=== PATIENT | male | born 1945 | race African-American/Black ===

== ENCOUNTER 2017-11-09 08:27 | Emergency (ER) | payer OTHER ==
[2017-11-09 08:33] VITALS: BMI 22.4
--- NOTE | 2017-11-09 08:47 | PDOC ---
History of Present Illness - General Chief Complaint: Urinary Problem Stated Complaint: URINARY RETENTION Time Seen by Provider: 11/09/17 08:40 History Source: Patient Exam Limitations: No Limitations - History of Present Illness Initial Comments: 11/09/17 10:22 Patient is a 71-year-old male past medical history of BPH, high blood pressure, who presents to the emergency department today complaining of urinary retention. Patient states that as of midnight he has been unable to urinate. He states that small dribbles come out however he has not had a full urination since yesterday. Patient admits to dysuria, frequency, hesitancy. He also states he has some lower abdominal pain. Denies fevers, chills, nausea, vomiting , diarrhea, back pain, hematuria straining, blood in the stool, stool changes. Past History - Travel Traveled outside of the country in the last 30 days: No Close contact w/someone who was outside of country & ill: No - Past Medical History Allergies/Adverse Reactions: Allergies Allergy/AdvReac Type Severity Reaction Status Date / Time No Known Allergies Allergy Verified 11/09/17 08:33 Home Medications: Ambulatory Orders Unobtainable [Unobtainable] 11/09/17 COPD: No HTN: Yes Other medical history: enlarged prostate, glaucoma - Suicide/Smoking/Psychosocial Hx Smoking History: Never smoked Information on smoking cessation initiated: No Hx Alcohol Use: No Drug/Substance Use Hx: No Substance Use Type: None Review of Systems - Review of Systems Able to Perform ROS?: Yes Comments:: 11/09/17 10:24 CONSTITUTIONAL: Absent: fever, chills, diaphoresis, generalized weakness, malaise, loss of appetite CARDIOVASCULAR: Absent: chest pain, loss of consciousness, palpitations, irregular heart rate, peripheral edema RESPIRATORY: Absent: cough, shortness of breath, dyspnea with exertion, orthopnea, wheezing, stridor, hemoptysis GASTROINTESTINAL: Present: abdominal pain Absent: abdominal distension, nausea, vomiting, diarrhea , constipation, melena, hematochezia GENITOURINARY: Present: dysuria, frequency, hesitancy Absent: urgency, hematuria, flank pain, genital pain MUSCULOSKELETAL: Absent: myalgia, arthralgia, joint swelling SKIN: Absent: rash, itching, pallor HEMATOLOGIC/IMMUNOLOGIC: Absent: easy bleeding, easy bruising, lymphadenopathy, frequent infections ENDOCRINE: Absent: unexplained weight gain, unexplained weight loss, heat intolerance, cold intolerance NEUROLOGIC: Absent: headache, focal weakness or paresthesias, dizziness, unsteady gait, seizure, mental status changes, bladder or bowel incontinence PSYCHIATRIC: Absent: anxiety, depression, suicidal or homicidal ideation, hallucinations. Is the patient limited Faroese proficient: No *Physical Exam - Vital Signs Last Vital Signs Temp Pulse Resp BP Pulse Ox 97.7 F 90 18 143/85 98 11/09/17 08:29 11/09/17 08:29 11/09/17 08:29 11/09/17 08:29 11/09/17 08:29 - Physical Exam Comments: 11/09/17 10:25 GENERAL: Well developed, well nourished. Awake and alert. No acute distress. HEENT: Normocephalic, atraumatic. PERRLA, EOMI. No conjunctival pallor. Sclera are non- icteric. Moist mucous membranes. Oropharynx is clear. NECK: Supple. Full ROM. No JVD. Carotid pulses 2+ and symmetric, without bruits. No thyromegaly. No lymphadenopathy. CARDIOVASCULAR: Regular rate and rhythm. No murmurs, rubs, or gallops. Distal pulses are 2+ and symmetric. PULMONARY: No evidence of respiratory distress. Lungs clear to auscultation bilaterally. No wheezing, rales or rhonchi. ABDOMINAL: TTP of the LLQ, suprapubic area, RLQ. Worse over the LLQ. Soft. Non-distended. No rebound or guarding. No organomegaly. Normoactive bowel sounds. MUSCULOSKELETAL Normal range of motion at all joints. No bony deformities or tenderness. No CVA tenderness. EXTREMITIES: No cyanosis. No clubbing. No edema. No calf tenderness. SKIN: Warm and dry. Normal capillary refill. No rashes. No jaundice. NEUROLOGICAL: Alert, awake, appropriate. Cranial nerves 2-12 intact. No deficits to light touch and temperature in face, upper extremities and lower extremities. No motor deficits in the in face, upper extremities and lower extremities. Normoreflexic in the upper and lower extremities. Normal speech. Toes are down- going bilaterally. Gait is normal without ataxia. PSYCHIATRIC: Cooperative. Good eye contact. Appropriate mood and affect. ED Treatment Course - LABORATORY CBC & Chemistry Diagram: 11/09/17 10:00 11/09/17 10:00 Medical Decision Making - Medical Decision Making 11/09/17 10:26 Patient is a 71-year-old male who presents emergency Department with 10 hours of urinary retention. No CVA tenderness at this time patient is afebrile and vital signs are stable. Concern for possible UTI. Patient states he cannot use the bathroom. We will obtain a urine specimen via Oliveira catheter. We'll also draw basic labs given the abdominal tenderness. Reevaluate. 11/09/17 11:40 Urine is negative for infection at this time. Blood work is unremarkable. Pt had output of 700 after oliveira catheter placed. Will leave catheter in place for d/c. Pt. to f/u with Dr. Sepulveda. Called Dr. Root to make aware of pt. Will d/c after call back from urology. 11/09/17 12:22 Pt. is agreeable to plan. spoke with Dr. Frazier's office and made an appointment for Tuesday. Still waiting for call back. 11/09/17 13:[address] call from Dr. Sepulveda's office. Will d/c home at this time as plan is to follow up with Derick's office on Tuesday. Pt. was taught how to empty urine from oliveira. Pt. and comfortable with discharge planning. Pt. understands all discharge instructions and all questions were answered at this time. *DC/Admit/Observation/Transfer Diagnosis at time of Disposition: Urinary retention - Discharge Dispostion Disposition: HOME Condition at time of disposition: Good Admit: No - Referrals Referrals: Bill Correa MD [Staff Physician] - - Patient Instructions Printed Discharge Instructions: DI for Urinary Retention in Men Additional Instructions: You had a Oliveira catheter placed today for urinary retention. Please leave the catheter in until you follow-up with urology. Please keep your appointment for Tuesday. Return to the emergency department if you have worsening fevers, abdominal pain , nausea, vomiting, urinary retention despite Oliveira, or any changes in your symptoms. - Post Discharge Activity
[2017-11-09 10:19] LABS: BASO % 0.4 % (0-2.0); EOS % 0.2 % (0-4.5); HEMATOCRIT 47.1 % (35.4-49); HEMOGLOBIN 15.7 GM/dL (11.7-16.9); LYMPH % 14.2 % (8-40); MCH 30.8 pg (25.7-33.7); MCHC 33.3 g/dl (32.0-35.9); MEAN CELL VOLUME 92.5 fl (80-96); MEAN PLT VOLUME 9.7 fl (7.5-11.1); MONO % 8.1 % (3.8-10.2); NEUT % 77.1 % (42.8-82.8); PLATELET COUNT 149 K/MM3 (134-434); RBC 5.09 M/mm3 (4.00-5.60); RDW 13.4 % (11.9-15.9); WHITE BLOOD COUNT 7.2 K/mm3 (4.0-10.0)
[2017-11-09 10:33] LABS: ALBUMIN 4.5 g/dl (3.4-5.0); ANION GAP 11 (8-16); BILIRUBIN,TOTAL 1.3 mg/dL (0.2-1.0); BLOOD UREA NITROGEN 20 mg/dL (7-18); CALCIUM 9.4 mg/dL (8.5-10.1); CHLORIDE 95 mmol/L (98-107); CO2 28 mmol/L (21-32); CREATININE 1.6 mg/dL (0.7-1.3); GLUCOSE,RANDOM 131 mg/dL (74-106); INR 1.02 (0.82-1.09); PROTHROMBIN TIME (PATIENT) 11.5 SEC (9.98-11.88); SGOT/AST 27 U/L (15-37); SGPT/ALT 38 U/L (12-78); SODIUM 134 mmol/L (136-145); TOT PROT 8.7 g/dl (6.4-8.2)
[2017-11-09 10:34] LABS: ALK PHOS 108 U/L (45-117)
[2017-11-09 11:07] LABS: URINE APPEARANCE CLEAR; URINE BILIRUBIN NEGATIVE (NEGATIVE); URINE BLOOD 1+ (NEGATIVE); URINE COLOR LTYELLOW; URINE GLUCOSE (UA) NEGATIVE (NEGATIVE); URINE KETONE TRACE (NEGATIVE); URINE LEUK ESTERASE NEGATIVE (NEGATIVE); URINE NITRITE NEGATIVE (NEGATIVE); URINE PROTEIN NEGATIVE (NEGATIVE); URINE UROBILINOGEN NEGATIVE mg/dL (0.2-1.0)
[2017-11-09 11:13] LABS: URINE MUCUS RARE
[2017-11-09 13:16] VITALS: BP 138/78; PULSE 78; TEMP 98
== END 2017-11-09 13:09 | disposition home or self-care (01) ==
LOC: JER 08:27
PROC: 0T9B70Z Drainage of Bladder with Drainage Device, Via Natural or Artificial Opening (ICD-10-PCS; principal; 2017-11-09)
DX: R33.9 Retention of urine, unspecified (principal); I10 Essential (primary) hypertension
CPT/HCPCS: 36415; 51702; 80053; 81003; 81015; 85025; 85610; 87086; 99282-25

== ENCOUNTER 2017-11-15 23:37 | Emergency (ER) | payer OTHER ==
[2017-11-16 00:21] VITALS: BP 141/96; PULSE 80; TEMP 98; BMI 22.4
--- NOTE | 2017-11-16 00:52 | PDOC ---
History of Present Illness - General History Source: Patient Exam Limitations: No Limitations - History of Present Illness Initial Comments: 11/16/17 01:03 The patient is a 71 year old male, with a significant past medical history of BPH, hypertension, who presents to the emergency department with urinary retention after removal of his catheter today. The patient states he was seen here a week ago for inability to urinate, had a catheter placed, and reports having the catheter removed at 11AM on 11/15 by his urologist, however, states he has been unable to urinate since 5PM on the same day. The patient denies chest pain, shortness of breath, headache and dizziness. The patient denies fever, chills, nausea, vomit, diarrhea and constipation. Allergies: NKDA Urologist: Dr. Correa <Tiffanie Villavicencio - Last Filed: 11/16/17 01:03> <Bhumi Khan - Last Filed: 11/16/17 01:23> - General Chief Complaint: Urinary Problem Stated Complaint: TROUBLE URINATING Time Seen by Provider: 11/16/17 00:30 Past History <Tiffanie Villavicencoi - Last Filed: 11/16/17 01:03> - Past Medical History COPD: No GI Disorders: Yes (BPH) HTN: Yes Other medical history: Glaucoma - Suicide/Smoking/Psychosocial Hx Smoking History: Never smoked Have you smoked in the past 12 months: No Information on smoking cessation initiated: No Hx Alcohol Use: No Drug/Substance Use Hx: No Substance Use Type: None <Bhumi Khan - Last Filed: 11/16/17 01:23> - Past Medical History Allergies/Adverse Reactions: Allergies Allergy/AdvReac Type Severity Reaction Status Date / Time No Known Allergies Allergy Verified 11/16/17 00:18 Home Medications: Ambulatory Orders Amlodipine/Valsartan [Exforge 10-320 mg Tablet] 1 tab PO DAILY 11/16/17 Bimatoprost [Lumigan] 1 drop IO DAILY 11/16/17 Brimonidine Tartrate/Timolol [Combigan Eye Drops] 5 ml OP DAILY 11/16/17 Finasteride 5 mg PO DAILY 11/16/17 Tamsulosin HCl [Flomax] 0.4 mg PO DAILY 11/16/17 Review of Systems - Review of Systems Able to Perform ROS?: Yes Comments:: 11/16/17 01:04 CONSTITUTIONAL: Absent: fever, chills, diaphoresis, generalized weakness, malaise, loss of appetite HEENT: Absent: rhinorrhea, nasal congestion, throat pain, throat swelling, difficulty swallowing, mouth swelling, ear pain, eye pain, visual Changes CARDIOVASCULAR: Absent: chest pain, syncope, palpitations, irregular heart rate, lightheadedness , peripheral edema RESPIRATORY: Absent: cough, shortness of breath, dyspnea with exertion, orthopnea, wheezing, stridor, hemoptysis GASTROINTESTINAL: Absent: abdominal pain, abdominal distension, nausea, vomiting, diarrhea, constipation, melena, hematochezia GENITOURINARY: (+) urinary retention s/p catheter removal. Absent: dysuria, urgency, hesitancy , hematuria, flank pain, genital pain MUSCULOSKELETAL: Absent: myalgia, arthralgia, joint swelling SKIN: Absent: rash, itching, pallor HEMATOLOGIC/IMMUNOLOGIC: Absent: easy bleeding, easy bruising, lymphadenopathy, frequent infections ENDOCRINE: Absent: unexplained weight gain, unexplained weight loss, heat intolerance, cold intolerance NEUROLOGIC: Absent: headache, focal weakness or paresthesias, dizziness, unsteady gait, seizure, mental status changes, bladder or bowel incontinence PSYCHIATRIC: Absent: anxiety, depression, suicidal or homicidal ideation, hallucinations. <Tiffanie Villavicencio - Last Filed: 11/16/17 01:03> *Physical Exam - Vital Signs Last Vital Signs Temp Pulse Resp BP Pulse Ox 98.0 F 80 20 141/96 100 11/16/17 00:18 11/16/17 00:18 11/16/17 00:18 11/16/17 00:18 11/16/17 00:18 - Physical Exam Comments: 11/16/17 01:05 GENERAL: Well developed, well nourished. Awake and alert. No acute distress. HEENT: Normocephalic, atraumatic. PERRLA, EOMI. No conjunctival pallor. Sclera are non- icteric. Moist mucous membranes. Oropharynx is clear. NECK: Supple. Full ROM. No JVD. Carotid pulses 2+ and symmetric, without bruits. No thyromegaly. No lymphadenopathy. CARDIOVASCULAR: Regular rate and rhythm. No murmurs, rubs, or gallops. Distal pulses are 2+ and symmetric. PULMONARY: No evidence of respiratory distress. Lungs clear to auscultation bilaterally. No wheezing, rales or rhonchi. ABDOMINAL: Soft. Non-tender. Non-distended. No rebound or guarding. No organomegaly. Normoactive bowel sounds. MUSCULOSKELETAL Normal range of motion at all joints. No bony deformities or tenderness. No CVA tenderness. EXTREMITIES: No cyanosis. No clubbing. No edema. No calf tenderness. SKIN: Warm and dry. Normal capillary refill. No rashes. No jaundice. NEUROLOGICAL: Alert, awake, appropriate. Cranial nerves 2-12 intact. Normoreflexic in the upper and lower extremities. Normal speech. Toes are down-going bilaterally. Gait is normal without ataxia. PSYCHIATRIC: Cooperative. Good eye contact. Appropriate mood and affect. <Tiffanie Villavicencio - Last Filed: 11/16/17 01:03> - Vital Signs Last Vital Signs Temp Pulse Resp BP Pulse Ox 98.0 F 80 20 141/96 100 11/16/17 00:18 11/16/17 00:18 11/16/17 00:18 11/16/17 00:18 11/16/17 00:18 <Bhumi Khan - Last Filed: 11/16/17 01:23> *DC/Admit/Observation/Transfer - Attestations Scribe Attestion: 11/16/17 01:05 Documentation prepared by Tiffanie Villavicencio, acting as medical/surgery registered nurse for Bhumi Khan MD <Tiffanie Villavicencio - Last Filed: 11/16/17 01:03> <Bhumi Khan - Last Filed: 11/16/17 01:23> Diagnosis at time of Disposition: Urinary retention - Discharge Dispostion Disposition: HOME Condition at time of disposition: Stable - Referrals Referrals: Karie Whelan MD [Primary Care Provider] - Bill Correa MD [Staff Physician] - - Patient Instructions Printed Discharge Instructions: DI for Urinary Retention in Men Additional Instructions: Please follow up your urologist as soon as possible - Post Discharge Activity
== END 2017-11-16 01:42 | disposition home or self-care (01) ==
LOC: JER 23:37
DX: R33.9 Retention of urine, unspecified (principal); N40.0 Benign prostatic hyperplasia without lower urinary tract symptoms; I10 Essential (primary) hypertension
CPT/HCPCS: 99282-25

== ENCOUNTER 2020-11-30 08:41 | Emergency (ER) | payer OTHER ==
[2020-11-30 08:50] VITALS: TEMP 97; BMI 21.5
[2020-11-30] MEDS ORDERED: SODIUM CHLORIDE 1,000 ML IV STA (10:15)
[2020-11-30 10:39] LABS: BASO % 0.5 % (0-2.0); EOS % 0.8 % (0-4.5); HEMATOCRIT 48.6 % (35.4-49); HEMOGLOBIN 16.3 GM/dL (11.7-16.9); LYMPH % 21.9 % (8-40); MCH 31.3 pg (25.7-33.7); MCHC 33.5 g/dl (32.0-35.9); MEAN CELL VOLUME 93.4 fl (80-96); MEAN PLT VOLUME 9.6 fl (7.5-11.1); MONO % 8.2 % (3.8-10.2); NEUT % 68.6 % (42.8-82.8); PLATELET COUNT 225 K/MM3 (134-434); RBC 5.21 M/mm3 (4.00-5.60); WHITE BLOOD COUNT 7.2 K/mm3 (4.0-10.0)
[2020-11-30 10:42] LABS: EPI CELLS 17 /uL (0-25.1); HYALINE CASTS 4 /uL (0-3.1); URINE APPEARANCE CLEAR; URINE BACTERIA 19 /uL (0-1359); URINE BILIRUBIN NEGATIVE (NEGATIVE); URINE COLOR YELLOW; URINE GLUCOSE (UA) NEGATIVE (NEGATIVE); URINE KETONE NEGATIVE (NEGATIVE); URINE LEUK ESTERASE NEGATIVE (NEGATIVE); URINE NITRITE NEGATIVE (NEGATIVE); URINE PROTEIN NEGATIVE (NEGATIVE); URINE RBC 61 /uL (0-23.9); URINE UROBILINOGEN 0.2 mg/dL (0.2-1.0); URINE WBC 3 /uL (0-25.8)
[2020-11-30 11:10] LABS: ALBUMIN 4.3 g/dl (3.4-5.0); CALCIUM 9.5 mg/dL (8.5-10.1)
[2020-11-30 11:13] LABS: CREATININE 1.3 mg/dL (0.55-1.3)
[2020-11-30 11:15] LABS: TOT PROT 8.1 g/dl (6.4-8.2)
[2020-11-30 12:05] VITALS: BP 143/87; PULSE 83
== END 2020-11-30 11:45 | disposition home or self-care (01) ==
LOC: JER 08:41
PROC: 3E0337Z Introduction of Electrolytic and Water Balance Substance into Peripheral Vein, Percutaneous Approach (ICD-10-PCS; principal; 2020-11-30)
DX: R33.9 Retention of urine, unspecified (principal)
CPT/HCPCS: 36415; 80053; 81003; 85025; 87086; 99284-25

== ENCOUNTER 2021-07-02 21:05 | Emergency (ER) | payer OTHER ==
[2021-07-02 21:37] VITALS: BP 142/87; PULSE 98; TEMP 98.5; BMI 19.9
[2021-07-02] MEDS ORDERED: LIDOCAINE HCL 2% JELLY 10 ML CARTRIDGE ONE (22:05)
[2021-07-02 22:33] LABS: BASO % 0.5 % (0-2.0); EOS % 0.7 % (0-4.5); HEMATOCRIT 41.7 % (35.4-49); LYMPH % 13.7 % (8-40); MCH 30.2 pg (25.7-33.7); MCHC 33.6 g/dl (32.0-35.9); MEAN CELL VOLUME 89.8 fl (80-96); MEAN PLT VOLUME 8.3 fl (7.5-11.1); MONO % 8.7 % (3.8-10.2); NEUT % 76.4 % (42.8-82.8); PLATELET COUNT 240 10^3/uL (134-434); RBC 4.64 M/mm3 (4.00-5.60); RDW 13.5 % (11.9-15.9)
[2021-07-02 22:35] LABS: EPI CELLS 2 /uL (0-25.1); HYALINE CASTS 0 /uL (0-3.1); PH,URINE 6.5 (5.0-8.0); URINE APPEARANCE CLEAR; URINE BACTERIA 20 /uL (0-1359); URINE BILIRUBIN NEGATIVE (NEGATIVE); URINE COLOR YELLOW; URINE GLUCOSE (UA) NEGATIVE (NEGATIVE); URINE KETONE TRACE (NEGATIVE); URINE LEUK ESTERASE NEGATIVE (NEGATIVE); URINE NITRITE NEGATIVE (NEGATIVE); URINE PROTEIN NEGATIVE (NEGATIVE); URINE RBC 38 /uL (0-23.9); URINE UROBILINOGEN 0.2 mg/dL (0.2-1.0); URINE WBC 1 /uL (0-25.8)
[2021-07-02 22:56] LABS: ALBUMIN 3.4 g/dl (3.4-5.0); CALCIUM 8.9 mg/dL (8.5-10.1)
[2021-07-02 22:57] LABS: BLOOD UREA NITROGEN 15.6 mg/dL (7-18)
[2021-07-02 23:00] LABS: CREATININE 1.1 mg/dL (0.55-1.3)
[2021-07-02 23:01] LABS: BILIRUBIN,TOTAL 0.8 mg/dL (0.2-1); TOT PROT 7.5 g/dl (6.4-8.2)
== END 2021-07-02 23:29 | disposition home or self-care (01) ==
LOC: JER 21:05
DX: R33.9 Retention of urine, unspecified (principal)
CPT/HCPCS: 36415; 80053; 81003; 85025; 87086; 99283-25

== ENCOUNTER 2021-07-10 00:32 | Emergency (ER) | payer OTHER ==
[2021-07-10 00:41] VITALS: BP 129/87; PULSE 88; TEMP 98.5; BMI 20.5
[2021-07-10] MEDS ORDERED: CEPHALEXIN MONOHYDRATE 500 MG CAPSULE (UD) PO ONE (00:54)
[2021-07-10] MEDS ORDERED: SULFAMETHOXAZOLE/TRIMETHOPRIM 800MG/160MG D.S. TABLET PO ONE (01:12)
[2021-07-10 01:23] LABS: EPI CELLS 1 /uL (0-25.1); HYALINE CASTS 4 /uL (0-3.1); PH,URINE 6.5 (5.0-8.0); URINE APPEARANCE CLOUDY; URINE BACTERIA 1606 /uL (0-1359); URINE BILIRUBIN NEGATIVE (NEGATIVE); URINE COLOR YELLOW; URINE GLUCOSE (UA) NEGATIVE (NEGATIVE); URINE KETONE NEGATIVE (NEGATIVE); URINE LEUK ESTERASE 3+ (NEGATIVE); URINE NITRITE NEGATIVE (NEGATIVE); URINE PROTEIN NEGATIVE (NEGATIVE); URINE RBC 14 /uL (0-23.9); URINE WBC 351 /uL (0-25.8)
[2021-07-10] MEDS ORDERED: SULFAMETHOXAZOLE/TRIMETHOPRIM 800MG/160MG D.S. TABLET ONE (01:25)
== END 2021-07-10 01:35 | disposition home or self-care (01) ==
LOC: JER 00:32
DX: R33.9 Retention of urine, unspecified (principal)
CPT/HCPCS: 81003; 87086; 87186; 99284-25

== ENCOUNTER 2021-07-22 04:54 | Inpatient (IN) | payer OTHER ==
[2021-07-22] MEDS ORDERED: MIDAZOLAM HCL 2 MG/2 ML SINGLE DOSE VIAL IVPUSH ONE (13:15)
[2021-07-22] MEDS ORDERED: SODIUM CHLORIDE 500 ML IV ONE (13:15)
[2021-07-22] MEDS ORDERED: POLYETHYLENE GLYCOL (HEALTHYLAX) 3350 17 GM PACKET PO PRN (22:46)
[2021-07-22] MEDS ORDERED: ACETAMINOPHEN 1000 MG/100 ML VIAL IVPB ONE (22:51)
[2021-07-22] MEDS: METOCLOPRAMIDE HCL 10 MG TABLET (FP) PO SCH (23:31)
[2021-07-22] MEDS: CYPROHEPTADINE HCL 4 MG TABLET PO SCH (23:47)
[2021-07-22 23:53] VITALS: BMI 19.5
[2021-07-23] MEDS: METOCLOPRAMIDE HCL 10 MG TABLET (FP) PO SCH ×3 (05:48→21:32)
[2021-07-23] MEDS: CYPROHEPTADINE HCL 4 MG TABLET PO SCH ×3 (05:49→21:33)
[2021-07-23 09:34] LABS: BASO % 0.2 % (0-2.0); EOS % 0.4 % (0-4.5); HEMATOCRIT 39.2 % (35.4-49); HEMOGLOBIN 13.2 GM/dL (11.7-16.9); MCH 30.2 pg (25.7-33.7); MCHC 33.6 g/dl (32.0-35.9); MEAN PLT VOLUME 8.7 fl (7.5-11.1); MONO % 9.9 % (3.8-10.2); NEUT % 70.5 % (42.8-82.8); PLATELET COUNT 266 10^3/uL (134-434); RBC 4.36 M/mm3 (4.00-5.60); RDW 13.8 % (11.9-15.9); WHITE BLOOD COUNT 8.4 K/mm3 (4.0-10.0)
[2021-07-23] MEDS ORDERED: PT OWN MED DRAWER 7, Y5N ONE ×3 (09:46→21:18)
[2021-07-23 09:52] LABS: BLOOD UREA NITROGEN 20.3 mg/dL (7-18); CALCIUM 9.3 mg/dL (8.5-10.1)
[2021-07-23] MEDS: BRIMONIDINE TARTRATE 0.2% OPHTHALMIC 5 ML BOTTLE OU SCH ×2 (09:53→21:33)
[2021-07-23] MEDS: VALSARTAN 160 MG TABLET PO SCH (09:54)
[2021-07-23] MEDS: amLODIPine BESYLATE 10 MG TABLET (FP) PO SCH (09:54)
[2021-07-23] MEDS: PANTOPRAZOLE 40 MG TABLET PO SCH (09:54)
[2021-07-23 09:56] LABS: CREATININE 1.5 mg/dL (0.55-1.3)
[2021-07-23] MEDS ORDERED: PATIENT'S OWN MEDICATION (NON-FORMULARY) (Netarsudil Mesylat/Latanoprost [Rocklatan 0.02%- OU SCH (10:00)
[2021-07-23] MEDS ORDERED: TIMOLOL 0.5% OPHTHALMIC SOL 5 ML BOTTLE OU SCH (10:00)
[2021-07-23] MEDS: TIMOLOL 0.5% OPHTHALMIC SOL 5 ML BOTTLE OU SCH (11:28)
[2021-07-23] MEDS ORDERED: ACETAMINOPHEN 1000 MG/100 ML VIAL IVPB PRN (13:17)
[2021-07-24] MEDS ORDERED: PT OWN MED DRAWER 7, Y5N ONE ×5 (05:36→21:12)
[2021-07-24] MEDS: METOCLOPRAMIDE HCL 10 MG TABLET (FP) PO SCH ×3 (05:49→21:58)
[2021-07-24] MEDS: CYPROHEPTADINE HCL 4 MG TABLET PO SCH ×3 (05:49→21:58)
[2021-07-24] MEDS: amLODIPine BESYLATE 10 MG TABLET (FP) PO SCH (09:18)
[2021-07-24] MEDS: PANTOPRAZOLE 40 MG TABLET PO SCH (09:18)
[2021-07-24] MEDS: TIMOLOL 0.5% OPHTHALMIC SOL 5 ML BOTTLE OU SCH (09:19)
[2021-07-24] MEDS: VALSARTAN 160 MG TABLET PO SCH (09:19)
[2021-07-24] MEDS: BRIMONIDINE TARTRATE 0.2% OPHTHALMIC 5 ML BOTTLE OU SCH ×2 (09:19→21:58)
[2021-07-24] MEDS: HEPARIN NA (PORCINE) 5,000 UNITS/ML 1ML VIAL SQ SCH (21:57)
[2021-07-25] MEDS: CYPROHEPTADINE HCL 4 MG TABLET PO SCH ×2 (05:38→13:49)
[2021-07-25] MEDS: METOCLOPRAMIDE HCL 10 MG TABLET (FP) PO SCH ×2 (05:38→13:48)
[2021-07-25] MEDS: amLODIPine BESYLATE 10 MG TABLET (FP) PO SCH (10:35)
[2021-07-25] MEDS: PANTOPRAZOLE 40 MG TABLET PO SCH (10:35)
[2021-07-25] MEDS: VALSARTAN 160 MG TABLET PO SCH (10:35)
[2021-07-25] MEDS: HEPARIN NA (PORCINE) 5,000 UNITS/ML 1ML VIAL SQ SCH ×2 (10:35→10:47)
[2021-07-25] MEDS: BRIMONIDINE TARTRATE 0.2% OPHTHALMIC 5 ML BOTTLE OU SCH (10:36)
[2021-07-25] MEDS: TIMOLOL 0.5% OPHTHALMIC SOL 5 ML BOTTLE OU SCH (10:36)
[2021-07-25] MEDS ORDERED: PT OWN MED DRAWER 7, Y5N ONE (13:44)
[2021-07-25 13:48] VITALS: BP 121/50; PULSE 95; TEMP 97.6
== END 2021-07-25 15:01 | disposition home or self-care (01) | DRG 200 ==
LOC: JASUSAT 04:54 → JRADIR 04:54 → J8W 19:41 → JASUSAT 22:46 → J8W 07-24 18:52
PROVIDERS: ADMIT Internal Medicine Hematology & Oncology; ATTEND Internal Medicine
PROC: 05H533Z Insertion of Infusion Device into Right Subclavian Vein, Percutaneous Approach (ICD-10-PCS; 2021-07-22)
PROC: 0W9930Z Drainage of Right Pleural Cavity with Drainage Device, Percutaneous Approach (ICD-10-PCS; principal; 2021-07-22 10:00)
DX: J95.811 Postprocedural pneumothorax (principal); C16.9 Malignant neoplasm of stomach, unspecified; I10 Essential (primary) hypertension; N40.1 Benign prostatic hyperplasia with lower urinary tract symptoms; R33.9 Retention of urine, unspecified; Y83.9 Surgical procedure, unspecified as the cause of abnormal reaction of the patient, or of later complication, without mention of misadventure at the time of the procedure
CPT/HCPCS: 32557; 36415; 36561; 71045-TC-FY; 71046-TC-FY; 77001-TC-FY; 80048; 85025; 94760; C1729; C1769; C1788; C9803; J0131; J1644; U0003; U0005

== ENCOUNTER 2021-07-28 07:17 | Day surgery (SDC) | payer OTHER ==
[~2021-07-28 07:17] MED LIST: FLUOROURACIL 4,200 MG in SODIUM CHLORIDE 8 ML IV ONE; FLUOROURACIL 500 MG/10 ML VIAL IVPUSH ONE; FOSAPREPITANT DIMEGLUMINE 150 MG in SODIUM CHLORIDE 145 ML IVPB ONE; LEUCOVORIN INJECTION - 700 MG in DEXTROSE 5%-WATER - 250 ML IVPB ONE; NIVOLUMAB 240 MG in SODIUM CHLORIDE 100 ML IVPB ONE; PALONOSETRON HCL 0.25 MG/5 ML VIAL IVPUSH ONE; SODIUM CHLORIDE 250 ML IV ONE
[2021-07-28] MEDS ORDERED: SODIUM CHLORIDE 250 ML IV ONE (09:00)
[2021-07-28] MEDS ORDERED: DEXAMETHASONE SODIUM PHOSPHATE 12 MG, DIPHENHYDRAMINE 25 MG in SODIUM CHLORIDE 100 ML IVPB ONE (09:30)
[2021-07-28] MEDS ORDERED: PALONOSETRON HCL 0.25 MG/5 ML VIAL IVPUSH ONE (09:30)
[2021-07-28] MEDS ORDERED: FOSAPREPITANT DIMEGLUMINE 150 MG VIAL IVPB ONE (09:30)
[2021-07-28] MEDS ORDERED: LEUCOVORIN INJECTION - 684 MG in DEXTROSE 5%-WATER - 250 ML IVPB ONE (10:00)
[2021-07-28] MEDS ORDERED: FLUOROURACIL 4,100 MG in SODIUM CHLORIDE 10 ML CP ONE (12:00)
[2021-07-28 16:15] VITALS: BP 120/71; PULSE 95; TEMP 98.6
== END 2021-07-28 14:10 | disposition home or self-care (01) ==
LOC: JONCCHEMO 07:17
PROVIDERS: ATTEND Internal Medicine Hematology & Oncology
DX: Z51.11 Encounter for antineoplastic chemotherapy (principal); C16.9 Malignant neoplasm of stomach, unspecified
CPT/HCPCS: 96366; 96367; 96375; 96413; 96415; G0498; J1453; J2469; J9263

== ENCOUNTER 2021-08-12 07:33 | Day surgery (SDC) | payer OTHER ==
[2021-08-12] MEDS ORDERED: FOSAPREPITANT DIMEGLUMINE 150 MG VIAL IVPB ONE (08:00)
[2021-08-12 08:48] LABS: EOS % 7.3 % (0-4.5); HEMATOCRIT 39.5 % (35.4-49); HEMOGLOBIN 12.9 GM/dL (11.7-16.9); LYMPH % 35.6 % (8-40); MCH 30.2 pg (25.7-33.7); MCHC 32.7 g/dl (32.0-35.9); MEAN CELL VOLUME 92.2 fl (80-96); MEAN PLT VOLUME 8.4 fl (7.5-11.1); MONO % 17.3 % (3.8-10.2); NEUT % 38.8 % (42.8-82.8); PLATELET COUNT 197 10^3/uL (134-434); RBC 4.28 M/mm3 (4.00-5.60); RDW 14.7 % (11.9-15.9); WHITE BLOOD COUNT 4.5 K/mm3 (4.0-10.0)
[2021-08-12 09:03] LABS: CALCIUM 9.3 mg/dL (8.5-10.1)
[2021-08-12 09:04] LABS: ALBUMIN 3.2 g/dl (3.4-5.0); BLOOD UREA NITROGEN 19.2 mg/dL (7-18); MAGNESIUM 2.5 mg/dL (1.8-2.4)
[2021-08-12 09:07] LABS: CREATININE 1.6 mg/dL (0.55-1.3)
[2021-08-12 09:08] LABS: BILIRUBIN,TOTAL 0.6 mg/dL (0.2-1); TOT PROT 7.1 g/dl (6.4-8.2)
[2021-08-12] MEDS ORDERED: SODIUM CHLORIDE 500 ML IV ONE (10:00)
[2021-08-12] MEDS ORDERED: SODIUM CHLORIDE 250 ML IV ONE (10:00)
[2021-08-12] MEDS ORDERED: DEXAMETHASONE SODIUM PHOSPHATE 12 MG, DIPHENHYDRAMINE 25 MG in SODIUM CHLORIDE 100 ML IVPB ONE (10:30)
[2021-08-12] MEDS ORDERED: FOSAPREPITANT DIMEGLUMINE 150 MG in SODIUM CHLORIDE 145 ML IVPB ONE (10:30)
[2021-08-12] MEDS ORDERED: PALONOSETRON HCL 0.25 MG/5 ML VIAL IVPUSH ONE (10:30)
[2021-08-12] MEDS ORDERED: LEUCOVORIN INJECTION - 676 MG in DEXTROSE 5%-WATER - 250 ML IVPB ONE (11:00)
[2021-08-12] MEDS ORDERED: FLUOROURACIL 4,050 MG in SODIUM CHLORIDE 11 ML CP ONE (13:00)
[2021-08-12 17:01] VITALS: TEMP 98.3
[2021-08-12 17:02] VITALS: BP 115/77; PULSE 81
== END 2021-08-12 15:40 | disposition home or self-care (01) ==
LOC: JONCCHEMO 07:33
PROVIDERS: ATTEND Internal Medicine Hematology & Oncology
DX: Z51.11 Encounter for antineoplastic chemotherapy (principal); C16.0 Malignant neoplasm of cardia
CPT/HCPCS: 36415; 80053; 83735; 85025; 96361; 96366; 96367; 96375; 96413; 96415; G0498; J1453; J2469; J9263

== ENCOUNTER 2021-09-02 08:24 | Day surgery (SDC) | payer OTHER ==
[2021-09-02 09:50] LABS: HEMATOCRIT 39.7 % (35.4-49); HEMOGLOBIN 13.2 GM/dL (11.7-16.9); MCH 30.3 pg (25.7-33.7); MCHC 33.3 g/dl (32.0-35.9); MEAN CELL VOLUME 91.1 fl (80-96); MEAN PLT VOLUME 8.9 fl (7.5-11.1); PLATELET COUNT 194 10^3/uL (134-434); RBC 4.36 M/mm3 (4.00-5.60); RDW 16.1 % (11.9-15.9); WHITE BLOOD COUNT 4.9 K/mm3 (4.0-10.0)
[2021-09-02] MEDS ORDERED: SODIUM CHLORIDE 250 ML IV ONE (10:00)
[2021-09-02 10:16] LABS: CALCIUM 9.5 mg/dL (8.5-10.1)
[2021-09-02 10:17] LABS: BLOOD UREA NITROGEN 13.9 mg/dL (7-18)
[2021-09-02 10:18] LABS: MAGNESIUM 2.3 mg/dL (1.8-2.4)
[2021-09-02 10:20] LABS: CREATININE 1.3 mg/dL (0.55-1.3)
[2021-09-02 10:21] LABS: BILIRUBIN,TOTAL 0.6 mg/dL (0.2-1); TOT PROT 6.8 g/dl (6.4-8.2)
[2021-09-02] MEDS ORDERED: DEXAMETHASONE SODIUM PHOSPHATE 12 MG, DIPHENHYDRAMINE 25 MG in SODIUM CHLORIDE 100 ML IVPB ONE (10:30)
[2021-09-02] MEDS ORDERED: FOSAPREPITANT DIMEGLUMINE 150 MG in SODIUM CHLORIDE 145 ML IVPB ONE (10:30)
[2021-09-02] MEDS ORDERED: PALONOSETRON HCL 0.25 MG/5 ML VIAL IVPUSH ONE (10:30)
[2021-09-02 10:32] LABS: ANISOCYTOSIS 1+; MACROCYTOSIS 0; PLATELET ESTIMATE NORMAL
[2021-09-02] MEDS ORDERED: LEUCOVORIN INJECTION - 668 MG in DEXTROSE 5%-WATER - 250 ML IVPB ONE (11:00)
[2021-09-02] MEDS ORDERED: SODIUM CHLORIDE 500 ML IV ONE (11:45)
[2021-09-02] MEDS ORDERED: FLUOROURACIL 4,000 MG in SODIUM CHLORIDE 12 ML CP ONE (13:00)
[2021-09-02 16:52] VITALS: TEMP 98.2
[2021-09-02 16:53] VITALS: BP 121/74; PULSE 67
== END 2021-09-02 16:45 | disposition home or self-care (01) ==
LOC: JONCCHEMO 08:24
PROVIDERS: ATTEND Internal Medicine Hematology & Oncology
DX: Z51.11 Encounter for antineoplastic chemotherapy (principal); C16.0 Malignant neoplasm of cardia
CPT/HCPCS: 36415; 80053; 82378; 83735; 85025; 96361; 96366; 96367; 96375; 96413; 96415; G0498; J1453; J2469; J9263

== ENCOUNTER 2021-09-04 08:29 | Day surgery (SDC) | payer OTHER ==
[2021-09-04 16:20] VITALS: BP 105/67; PULSE 66; TEMP 98.1
== END 2021-09-04 14:40 | disposition home or self-care (01) ==
LOC: JONCCHEMO 08:29
PROVIDERS: ATTEND Internal Medicine Hematology & Oncology
PROC: 2W54XYZ Removal of Other Device on Chest Wall (ICD-10-PCS; principal; 2021-09-04)
DX: Z53.8 Procedure and treatment not carried out for other reasons (principal)

== ENCOUNTER 2021-09-07 13:24 | Day surgery (SDC) | payer OTHER ==
[2021-09-07] MEDS ORDERED: TBO-FILGRASTIM 300 MCG/0.5 ML DISP.SYRINGE SQ ONE (14:00)
[2021-09-07 15:33] VITALS: BP 114/75; PULSE 87; TEMP 98.2
== END 2021-09-07 13:55 | disposition home or self-care (01) ==
LOC: JONCNONCHE 13:24
PROVIDERS: ATTEND Internal Medicine Hematology & Oncology
PROC: 3E013GC Introduction of Other Therapeutic Substance into Subcutaneous Tissue, Percutaneous Approach (ICD-10-PCS; principal; 2021-09-07)
DX: Z76.89 Persons encountering health services in other specified circumstances (principal); C16.0 Malignant neoplasm of cardia
CPT/HCPCS: 96372; J1447

== ENCOUNTER 2021-09-10 07:46 | Day surgery (SDC) | payer OTHER ==
[2021-09-10] MEDS ORDERED: TBO-FILGRASTIM 300 MCG/0.5 ML DISP.SYRINGE SQ ONE (11:30)
[2021-09-10 15:14] VITALS: BP 132/78; PULSE 76; TEMP 97.4
== END 2021-09-10 13:35 | disposition home or self-care (01) ==
LOC: JONCCHEMO 07:46
PROVIDERS: ATTEND Internal Medicine Hematology & Oncology
PROC: 3E033GC Introduction of Other Therapeutic Substance into Peripheral Vein, Percutaneous Approach (ICD-10-PCS; principal; 2021-09-10)
DX: Z76.89 Persons encountering health services in other specified circumstances (principal)
CPT/HCPCS: 96372; J1447

== ENCOUNTER 2021-09-16 07:28 | Day surgery (SDC) | payer OTHER ==
[2021-09-16 09:30] LABS: BASO % 0.6 % (0-2.0); EOS % 4.3 % (0-4.5); HEMOGLOBIN 13.1 GM/dL (11.7-16.9); MCHC 33.5 g/dl (32.0-35.9); MEAN CELL VOLUME 92.5 fl (80-96); MEAN PLT VOLUME 8.7 fl (7.5-11.1); MONO % 26.5 % (3.8-10.2); NEUT % 21.6 % (42.8-82.8); PLATELET COUNT 159 10^3/uL (134-434); RBC 4.22 M/mm3 (4.00-5.60); RDW 17.2 % (11.9-15.9)
[2021-09-16 09:41] LABS: ALBUMIN 3.3 g/dl (3.4-5.0); CALCIUM 9.3 mg/dL (8.5-10.1); MAGNESIUM 2.1 mg/dL (1.8-2.4)
[2021-09-16 09:44] LABS: CREATININE 1.2 mg/dL (0.55-1.3)
[2021-09-16 09:46] LABS: BILIRUBIN,TOTAL 0.5 mg/dL (0.2-1); TOT PROT 6.7 g/dl (6.4-8.2)
[2021-09-16] MEDS ORDERED: SODIUM CHLORIDE 1,000 ML IV STA (10:13)
[2021-09-16 11:08] LABS: ANISOCYTOSIS 1+; MACROCYTOSIS 1+; PLATELET ESTIMATE DECREASED
[2021-09-16] MEDS ORDERED: SODIUM CHLORIDE 250 ML IV ONE (11:30)
[2021-09-16] MEDS ORDERED: FOSAPREPITANT DIMEGLUMINE 150 MG in SODIUM CHLORIDE 145 ML IVPB ONE (12:00)
[2021-09-16] MEDS ORDERED: PALONOSETRON HCL 0.25 MG/5 ML VIAL IVPUSH ONE (12:00)
[2021-09-16] MEDS ORDERED: DEXAMETHASONE SODIUM PHOSPHATE 12 MG, DIPHENHYDRAMINE 25 MG in SODIUM CHLORIDE 100 ML IVPB ONE (12:00)
[2021-09-16] MEDS ORDERED: NIVOLUMAB 240 MG in SODIUM CHLORIDE 100 ML IVPB ONE (12:15)
[2021-09-16] MEDS ORDERED: LEUCOVORIN INJECTION - 668 MG in DEXTROSE 5%-WATER - 250 ML IVPB ONE (12:30)
[2021-09-16] MEDS ORDERED: FLUOROURACIL 4,000 MG in SODIUM CHLORIDE 12 ML CP ONE (14:30)
[2021-09-16 18:17] VITALS: TEMP 98.1
[2021-09-16 18:23] VITALS: BP 123/72; PULSE 78
[2021-09-16] MEDS ORDERED: PORTA CATH FLUSH 10 ML IVPUSH ONE (18:23)
== END 2021-09-16 14:45 | disposition home or self-care (01) ==
LOC: JONCCHEMO 07:28
PROVIDERS: ATTEND Internal Medicine Hematology & Oncology
DX: Z51.11 Encounter for antineoplastic chemotherapy (principal); C16.0 Malignant neoplasm of cardia
CPT/HCPCS: 36415; 80053; 83735; 84439; 84443; 85025; 96361; 96413; J9299

== ENCOUNTER 2021-09-30 07:06 | Day surgery (SDC) | payer OTHER ==
[2021-09-30] MEDS ORDERED: SODIUM CHLORIDE 250 ML IV ONE (09:00)
[2021-09-30 09:17] LABS: HEMOGLOBIN 12.5 GM/dL (11.7-16.9); MCH 31.3 pg (25.7-33.7); MCHC 33.8 g/dl (32.0-35.9); MEAN CELL VOLUME 92.5 fl (80-96); MEAN PLT VOLUME 9.3 fl (7.5-11.1); PLATELET COUNT 176 10^3/uL (134-434); RDW 18.1 % (11.9-15.9); WHITE BLOOD COUNT 6.6 K/mm3 (4.0-10.0)
[2021-09-30 09:37] LABS: BLOOD UREA NITROGEN 17.3 mg/dL (7-18); CALCIUM 9.2 mg/dL (8.5-10.1)
[2021-09-30 09:38] LABS: ALBUMIN 2.9 g/dl (3.4-5.0)
[2021-09-30 09:41] LABS: CREATININE 1.2 mg/dL (0.55-1.3)
[2021-09-30 09:42] LABS: BILIRUBIN,TOTAL 0.8 mg/dL (0.2-1); TOT PROT 6.2 g/dl (6.4-8.2)
[2021-09-30 09:57] LABS: ANISOCYTOSIS 0; HELMET CELLS 0; HOWELL-JOLLY BODIES 0; MACROCYTOSIS 0; OVALOCYTE 0; PLATELET ESTIMATE NORMAL; ROULEAU 0; SICKELED CELLS 0; TARGET CELLS 0; TEAR DROP CELLS 0; TOXIC GRANULATION 0
[2021-09-30] MEDS ORDERED: DEXAMETHASONE SODIUM PHOSPHATE 10 MG, DIPHENHYDRAMINE 25 MG in SODIUM CHLORIDE 100 ML IVPB ONE (10:00)
[2021-09-30] MEDS ORDERED: FOSAPREPITANT DIMEGLUMINE 150 MG in SODIUM CHLORIDE 145 ML IVPB ONE (10:00)
[2021-09-30] MEDS ORDERED: PALONOSETRON HCL 0.25 MG/5 ML VIAL IVPUSH ONE (10:00)
[2021-09-30] MEDS ORDERED: NIVOLUMAB 240 MG in SODIUM CHLORIDE 100 ML IVPB ONE (10:30)
[2021-09-30] MEDS ORDERED: LEUCOVORIN INJECTION - 668 MG in DEXTROSE 5%-WATER - 250 ML IVPB ONE (11:00)
[2021-09-30 11:04] LABS: MAGNESIUM 2.2 mg/dL (1.8-2.4)
[2021-09-30] MEDS ORDERED: SODIUM CHLORIDE CP ONE (13:00)
[2021-09-30] MEDS ORDERED: FLUOROURACIL CP ONE (13:00)
[2021-09-30 18:16] VITALS: TEMP 98.3
[2021-09-30 18:30] VITALS: BP 116/60; PULSE 67
== END 2021-09-30 16:40 | disposition home or self-care (01) ==
LOC: JONCCHEMO 07:06
PROVIDERS: ATTEND Internal Medicine Hematology & Oncology
DX: Z51.11 Encounter for antineoplastic chemotherapy (principal); C16.0 Malignant neoplasm of cardia
CPT/HCPCS: 36415; 80053; 83735; 84439; 84443; 85025; 96366; 96367; 96375; 96413; 96415; 96417; G0498; J1453; J2469; J9263; J9299

== ENCOUNTER 2021-10-02 13:03 | Day surgery (SDC) | payer OTHER ==
[2021-10-02 18:07] VITALS: BP 125/78; PULSE 84; TEMP 98.7
[2021-10-02] MEDS ORDERED: PORTA CATH FLUSH 10 ML IVPUSH ONE (18:09)
== END 2021-10-02 18:11 | disposition home or self-care (01) ==
LOC: JONCNONCHE 13:03 → J7W 13:03 → JONCNONCHE 18:11
PROVIDERS: ATTEND Internal Medicine Hematology & Oncology
DX: Z53.8 Procedure and treatment not carried out for other reasons (principal)
CPT/HCPCS: 96365

== ENCOUNTER 2021-10-14 07:57 | Day surgery (SDC) | payer OTHER ==
[2021-10-14] MEDS ORDERED: SODIUM CHLORIDE 250 ML IV ONE (09:00)
[2021-10-14 09:43] LABS: BASO % 0.6 % (0-2.0); EOS % 4.8 % (0-4.5); HEMATOCRIT 40.3 % (35.4-49); HEMOGLOBIN 12.9 GM/dL (11.7-16.9); LYMPH % 32.9 % (8-40); MCH 30.6 pg (25.7-33.7); MCHC 32.1 g/dl (32.0-35.9); MEAN CELL VOLUME 95.1 fl (80-96); MEAN PLT VOLUME 8.9 fl (7.5-11.1); MONO % 17.7 % (3.8-10.2); PLATELET COUNT 179 10^3/uL (134-434); RBC 4.24 M/mm3 (4.00-5.60)
[2021-10-14] MEDS ORDERED: DEXAMETHASONE SODIUM PHOSPHATE 10 MG, DIPHENHYDRAMINE 25 MG in SODIUM CHLORIDE 100 ML IVPB ONE (10:00)
[2021-10-14] MEDS ORDERED: FOSAPREPITANT DIMEGLUMINE 150 MG in SODIUM CHLORIDE 145 ML IVPB ONE (10:00)
[2021-10-14] MEDS ORDERED: PALONOSETRON HCL 0.25 MG/5 ML VIAL IVPUSH ONE (10:00)
[2021-10-14 10:17] LABS: CALCIUM 9.6 mg/dL (8.5-10.1)
[2021-10-14 10:18] LABS: ALBUMIN 3.5 g/dl (3.4-5.0); BLOOD UREA NITROGEN 17.6 mg/dL (7-18); MAGNESIUM 2.4 mg/dL (1.8-2.4)
[2021-10-14 10:21] LABS: CREATININE 1.2 mg/dL (0.55-1.3)
[2021-10-14 10:23] LABS: BILIRUBIN,TOTAL 0.7 mg/dL (0.2-1); TOT PROT 6.8 g/dl (6.4-8.2)
[2021-10-14] MEDS ORDERED: NIVOLUMAB 240 MG in SODIUM CHLORIDE 100 ML IVPB ONE (10:30)
[2021-10-14] MEDS ORDERED: LEUCOVORIN INJECTION - 668 MG in DEXTROSE 5%-WATER - 250 ML IVPB ONE (11:00)
[2021-10-14] MEDS ORDERED: FLUOROURACIL CP ONE (13:00)
[2021-10-14] MEDS ORDERED: SODIUM CHLORIDE CP ONE (13:00)
[2021-10-14 16:02] VITALS: TEMP 98.3
[2021-10-14 16:03] VITALS: BP 140/82; PULSE 90
== END 2021-10-14 11:50 | disposition home or self-care (01) ==
LOC: JONCCHEMO 07:57
PROVIDERS: ATTEND Internal Medicine Hematology & Oncology
DX: Z51.11 Encounter for antineoplastic chemotherapy (principal); C16.0 Malignant neoplasm of cardia
CPT/HCPCS: 36415; 80053; 83735; 84439; 84443; 85025; 96361; 96413; J9299

== ENCOUNTER 2021-10-28 07:20 | Day surgery (SDC) | payer OTHER ==
[2021-10-28 09:46] LABS: BASO % 0.5 % (0-2.0); EOS % 2.3 % (0-4.5); HEMATOCRIT 40.8 % (35.4-49); HEMOGLOBIN 13.4 GM/dL (11.7-16.9); LYMPH % 28.6 % (8-40); MCH 31.4 pg (25.7-33.7); MCHC 32.8 g/dl (32.0-35.9); MEAN CELL VOLUME 95.7 fl (80-96); MEAN PLT VOLUME 8.9 fl (7.5-11.1); MONO % 12.8 % (3.8-10.2); NEUT % 55.8 % (42.8-82.8); PLATELET COUNT 214 10^3/uL (134-434); RBC 4.27 M/mm3 (4.00-5.60); RDW 17.4 % (11.9-15.9); WHITE BLOOD COUNT 7.6 K/mm3 (4.0-10.0)
[2021-10-28 09:59] LABS: ACTIVATED PTT 26.9 SECONDS (25.2-36.5); PROTHROMBIN TIME (PATIENT) 11.5 SEC (9.7-13.0)
[2021-10-28 10:14] LABS: BLOOD UREA NITROGEN 15.3 mg/dL (7-18); CALCIUM 9.9 mg/dL (8.5-10.1)
[2021-10-28 10:15] LABS: ALBUMIN 3.6 g/dl (3.4-5.0); MAGNESIUM 2.1 mg/dL (1.8-2.4)
[2021-10-28 10:18] LABS: CREATININE 1.2 mg/dL (0.55-1.3)
[2021-10-28 10:19] LABS: BILIRUBIN,TOTAL 0.6 mg/dL (0.2-1)
[2021-10-28] MEDS ORDERED: SODIUM CHLORIDE 250 ML IV ONE (10:30)
[2021-10-28] MEDS ORDERED: NIVOLUMAB 240 MG in SODIUM CHLORIDE 100 ML IVPB ONE (11:00)
[2021-10-28 18:23] VITALS: BP 100/60; PULSE 75; TEMP 98.1
== END 2021-10-28 13:15 | disposition home or self-care (01) ==
LOC: JONCCHEMO 07:20
PROVIDERS: ATTEND Internal Medicine Hematology & Oncology
DX: Z51.11 Encounter for antineoplastic chemotherapy (principal); C16.0 Malignant neoplasm of cardia
CPT/HCPCS: 36415; 80053; 82533; 83735; 84439; 84443; 85025; 85610; 85730; 96413; J9299

== ENCOUNTER 2021-11-11 09:08 | Day surgery (SDC) | payer OTHER ==
[2021-11-11 10:20] LABS: BASO % 0.8 % (0-2.0); EOS % 2.2 % (0-4.5); HEMOGLOBIN 12.9 GM/dL (11.7-16.9); LYMPH % 37.9 % (8-40); MCH 31.6 pg (25.7-33.7); MCHC 33.1 g/dl (32.0-35.9); MEAN CELL VOLUME 95.5 fl (80-96); MEAN PLT VOLUME 9.5 fl (7.5-11.1); NEUT % 44.1 % (42.8-82.8); PLATELET COUNT 197 10^3/uL (134-434); RBC 4.09 M/mm3 (4.00-5.60); RDW 15.8 % (11.9-15.9); WHITE BLOOD COUNT 5.9 K/mm3 (4.0-10.0)
[2021-11-11] MEDS ORDERED: SODIUM CHLORIDE 250 ML IV ONE (10:30)
[2021-11-11 10:31] LABS: CALCIUM 9.7 mg/dL (8.5-10.1)
[2021-11-11 10:32] LABS: ALBUMIN 3.6 g/dl (3.4-5.0); BLOOD UREA NITROGEN 19.4 mg/dL (7-18)
[2021-11-11 10:35] LABS: CREATININE 1.1 mg/dL (0.55-1.3)
[2021-11-11 10:37] LABS: BILIRUBIN,TOTAL 0.7 mg/dL (0.2-1)
[2021-11-11 10:38] LABS: TOT PROT 6.9 g/dl (6.4-8.2)
[2021-11-11] MEDS ORDERED: NIVOLUMAB 240 MG in SODIUM CHLORIDE 100 ML IVPB ONE (11:00)
[2021-11-11 16:50] VITALS: BP 130/82; PULSE 74; TEMP 98.3
[2021-11-11] MEDS ORDERED: PORTA CATH FLUSH 10 ML IVPUSH ONE (16:50)
== END 2021-11-11 14:00 | disposition home or self-care (01) ==
LOC: JONCCHEMO 09:08
PROVIDERS: ATTEND Internal Medicine Hematology & Oncology
DX: Z51.11 Encounter for antineoplastic chemotherapy (principal); C16.0 Malignant neoplasm of cardia
CPT/HCPCS: 36415; 80053; 85025; 96361; 96413; J9299

== ENCOUNTER 2021-11-25 07:39 | Day surgery (SDC) | payer OTHER ==
[2021-11-25 10:23] LABS: BASO % 0.8 % (0-2.0); EOS % 2.4 % (0-4.5); HEMATOCRIT 41.3 % (35.4-49); HEMOGLOBIN 13.9 GM/dL (11.7-16.9); LYMPH % 36.4 % (8-40); MCH 32.4 pg (25.7-33.7); MCHC 33.6 g/dl (32.0-35.9); MEAN CELL VOLUME 96.6 fl (80-96); MEAN PLT VOLUME 9.6 fl (7.5-11.1); MONO % 14.9 % (3.8-10.2); NEUT % 45.5 % (42.8-82.8); PLATELET COUNT 196 10^3/uL (134-434); RBC 4.28 M/mm3 (4.00-5.60); RDW 14.7 % (11.9-15.9); WHITE BLOOD COUNT 5.4 K/mm3 (4.0-10.0)
[2021-11-25] MEDS ORDERED: SODIUM CHLORIDE 250 ML IV ONE ×2 (10:30→11:00)
[2021-11-25 10:39] LABS: ACTIVATED PTT 29.8 SECONDS (25.2-36.5); INR 0.99 (0.83-1.09); PROTHROMBIN TIME (PATIENT) 11.4 SEC (9.7-13.0)
[2021-11-25 10:54] LABS: ALBUMIN 3.7 g/dl (3.4-5.0); CALCIUM 10.2 mg/dL (8.5-10.1); MAGNESIUM 2.3 mg/dL (1.8-2.4)
[2021-11-25 10:58] LABS: CREATININE 1.5 mg/dL (0.55-1.3)
[2021-11-25 10:59] LABS: BILIRUBIN,TOTAL 0.8 mg/dL (0.2-1); TOT PROT 7.1 g/dl (6.4-8.2)
[2021-11-25] MEDS ORDERED: NIVOLUMAB 240 MG in SODIUM CHLORIDE 100 ML IVPB ONE (11:00)
[2021-11-25] MEDS ORDERED: SODIUM CHLORIDE 500 ML IV ONE (11:00)
[2021-11-25] MEDS ORDERED: PORTA CATH FLUSH 10 ML IVPUSH ONE (15:31)
[2021-11-25 15:32] VITALS: BP 118/94; PULSE 94; TEMP 98.1
== END 2021-11-25 14:00 | disposition home or self-care (01) ==
LOC: JONCCHEMO 07:39
PROVIDERS: ATTEND Internal Medicine Hematology & Oncology
PROC: 3E043GC Introduction of Other Therapeutic Substance into Central Vein, Percutaneous Approach (ICD-10-PCS; principal; 2021-11-25)
PROC: 3E04305 Introduction of Other Antineoplastic into Central Vein, Percutaneous Approach (ICD-10-PCS; 2021-11-25)
DX: Z51.11 Encounter for antineoplastic chemotherapy (principal); C16.0 Malignant neoplasm of cardia
CPT/HCPCS: 36415; 80053; 82378; 82533; 83735; 84439; 84443; 85025; 85610; 85730; 96361; 96413; J9299

== ENCOUNTER 2021-12-09 07:39 | Day surgery (SDC) | payer OTHER ==
[2021-12-09 09:34] LABS: BASO % 0.5 % (0-2.0); EOS % 3.4 % (0-4.5); HEMATOCRIT 38.3 % (35.4-49); HEMOGLOBIN 13.2 GM/dL (11.7-16.9); LYMPH % 26.5 % (8-40); MCH 32.8 pg (25.7-33.7); MCHC 34.5 g/dl (32.0-35.9); MEAN CELL VOLUME 95.3 fl (80-96); MEAN PLT VOLUME 8.7 fl (7.5-11.1); MONO % 14.4 % (3.8-10.2); NEUT % 55.2 % (42.8-82.8); PLATELET COUNT 220 10^3/uL (134-434); RBC 4.02 M/mm3 (4.00-5.60); RDW 13.7 % (11.9-15.9); WHITE BLOOD COUNT 6.4 K/mm3 (4.0-10.0)
[2021-12-09 09:43] LABS: CALCIUM 9.5 mg/dL (8.5-10.1)
[2021-12-09 09:44] LABS: ALBUMIN 3.5 g/dl (3.4-5.0); BLOOD UREA NITROGEN 15.2 mg/dL (7-18)
[2021-12-09 09:47] LABS: CREATININE 1.1 mg/dL (0.55-1.3)
[2021-12-09 09:48] LABS: BILIRUBIN,TOTAL 0.8 mg/dL (0.2-1)
[2021-12-09] MEDS ORDERED: SODIUM CHLORIDE 250 ML IV ONE (10:00)
[2021-12-09] MEDS ORDERED: NIVOLUMAB 240 MG in SODIUM CHLORIDE 100 ML IVPB ONE (10:30)
[2021-12-09 17:17] VITALS: BP 102/68; PULSE 72; TEMP 98.4
[2021-12-09] MEDS ORDERED: PORTA CATH FLUSH 10 ML IVPUSH ONE (17:17)
== END 2021-12-09 13:05 | disposition home or self-care (01) ==
LOC: JONCCHEMO 07:39
PROVIDERS: ATTEND Internal Medicine Hematology & Oncology
PROC: 3E04305 Introduction of Other Antineoplastic into Central Vein, Percutaneous Approach (ICD-10-PCS; principal; 2021-12-09)
PROC: 3E0437Z Introduction of Electrolytic and Water Balance Substance into Central Vein, Percutaneous Approach (ICD-10-PCS; 2021-12-09)
DX: Z51.11 Encounter for antineoplastic chemotherapy (principal); C16.0 Malignant neoplasm of cardia
CPT/HCPCS: 36415; 80053; 85025; 96361; 96413; J9299

== ENCOUNTER 2021-12-15 11:42 | Inpatient (IN) | payer OTHER ==
[2021-12-15] MEDS ORDERED: DEXTROSE 5%-0.45% SALINE 1,000 ML IV SCH ×2 (13:00→13:16)
[2021-12-15 14:16] LABS: BASO % 0.5 % (0-2.0); EOS % 0.8 % (0-4.5); HEMATOCRIT 40.6 % (35.4-49); HEMOGLOBIN 13.3 GM/dL (11.7-16.9); LYMPH % 16.7 % (8-40); MCH 31.2 pg (25.7-33.7); MCHC 32.7 g/dl (32.0-35.9); MEAN CELL VOLUME 95.3 fl (80-96); MEAN PLT VOLUME 9.2 fl (7.5-11.1); MONO % 10.2 % (3.8-10.2); NEUT % 71.8 % (42.8-82.8); PLATELET COUNT 243 10^3/uL (134-434); RBC 4.26 M/mm3 (4.00-5.60); RDW 13.6 % (11.9-15.9); WHITE BLOOD COUNT 8.6 K/mm3 (4.0-10.0)
[2021-12-15 14:23] LABS: INR 1.04 (0.83-1.09)
[2021-12-15 14:25] LABS: ACTIVATED PTT 25.3 SECONDS (25.2-36.5)
[2021-12-15 14:33] LABS: CALCIUM 9.7 mg/dL (8.5-10.1)
[2021-12-15 14:34] LABS: ALBUMIN 3.4 g/dl (3.4-5.0); BLOOD UREA NITROGEN 17.9 mg/dL (7-18)
[2021-12-15 14:39] LABS: TOT PROT 6.8 g/dl (6.4-8.2)
[2021-12-15] MEDS ORDERED: ONDANSETRON 4 MG/2 ML VIAL IVPUSH PRN (14:57)
[2021-12-15] MEDS ORDERED: DEXTROSE 5%-NORMAL SALINE 1,000 ML IV SCH (15:00)
[2021-12-15] MEDS ORDERED: ONDANSETRON 4 MG/2 ML VIAL IVPUSH ONE (15:03)
[2021-12-15] MEDS ORDERED: ONDANSETRON 4 MG/2 ML VIAL ONE (15:25)
[2021-12-15] MEDS: DEXTROSE 5%-NORMAL SALINE 1,000 ML IV SCH (15:29)
[2021-12-15 23:39] VITALS: BMI 14.8
[2021-12-16] MEDS: DEXTROSE 5%-NORMAL SALINE 1,000 ML IV SCH (00:37)
[2021-12-16 07:28] LABS: BASO % 0.7 % (0-2.0); EOS % 2.7 % (0-4.5); HEMOGLOBIN 13.2 GM/dL (11.7-16.9); LYMPH % 28.8 % (8-40); MCH 31.9 pg (25.7-33.7); MCHC 33.8 g/dl (32.0-35.9); MEAN CELL VOLUME 94.4 fl (80-96); MEAN PLT VOLUME 8.5 fl (7.5-11.1); MONO % 12.6 % (3.8-10.2); NEUT % 55.2 % (42.8-82.8); PLATELET COUNT 238 10^3/uL (134-434); RBC 4.13 M/mm3 (4.00-5.60); RDW 13.7 % (11.9-15.9); WHITE BLOOD COUNT 6.4 K/mm3 (4.0-10.0)
[2021-12-16 07:51] LABS: ALBUMIN 3.4 g/dl (3.4-5.0); BLOOD UREA NITROGEN 11.6 mg/dL (7-18)
[2021-12-16 07:56] LABS: BILIRUBIN,TOTAL 0.8 mg/dL (0.2-1); TOT PROT 7.1 g/dl (6.4-8.2)
[2021-12-16] MEDS ORDERED: PANTOPRAZOLE SODIUM 40 MG VIAL IVPUSH SCH (10:00)
[2021-12-16 10:35] VITALS: BP 135/80; PULSE 62; TEMP 98
== END 2021-12-16 11:31 | disposition short-term general hospital (02) | DRG 374 ==
LOC: JER 11:42 → JERBED 14:55 → J7W 22:34
PROVIDERS: ADMIT Internal Medicine; ATTEND Internal Medicine
DX: C16.9 Malignant neoplasm of stomach, unspecified (principal); E43 Unspecified severe protein-calorie malnutrition; K31.1 Adult hypertrophic pyloric stenosis; R64 Cachexia; Z68.1 Body mass index [BMI] 19.9 or less, adult; N40.0 Benign prostatic hyperplasia without lower urinary tract symptoms; I10 Essential (primary) hypertension; H40.9 Unspecified glaucoma
CPT/HCPCS: 36415; 71045-TC-FY; 80053; 85025; 85610; 85730; 86850; 86900; 86901; 93005; 93010; 99285-25; C9803-CS; U0003; U0005

== ENCOUNTER 2021-12-23 07:52 | Day surgery (SDC) | payer OTHER ==
[2021-12-23 09:28] LABS: BASO % 0.8 % (0-2.0); EOS % 4.3 % (0-4.5); HEMATOCRIT 36.6 % (35.4-49); HEMOGLOBIN 12.1 GM/dL (11.7-16.9); MCH 31.7 pg (25.7-33.7); MCHC 33.1 g/dl (32.0-35.9); MEAN CELL VOLUME 95.5 fl (80-96); MONO % 12.7 % (3.8-10.2); NEUT % 53.2 % (42.8-82.8); PLATELET COUNT 230 10^3/uL (134-434); RBC 3.83 M/mm3 (4.00-5.60); RDW 13.9 % (11.9-15.9); WHITE BLOOD COUNT 5.3 K/mm3 (4.0-10.0)
[2021-12-23] MEDS ORDERED: DEXAMETHASONE SOD PHOSPHATE 20 MG/5 ML VIAL IVPB ONE ×2 (09:45)
[2021-12-23 09:51] LABS: MAGNESIUM 2.2 mg/dL (1.8-2.4)
[2021-12-23 09:52] LABS: CALCIUM 9.3 mg/dL (8.5-10.1)
[2021-12-23 09:53] LABS: ALBUMIN 3.5 g/dl (3.4-5.0)
[2021-12-23 09:56] LABS: CREATININE 1.1 mg/dL (0.55-1.3)
[2021-12-23 09:57] LABS: BILIRUBIN,TOTAL 0.7 mg/dL (0.2-1); TOT PROT 6.7 g/dl (6.4-8.2)
[2021-12-23] MEDS ORDERED: SODIUM CHLORIDE 250 ML IV ONE (10:00)
[2021-12-23] MEDS ORDERED: PALONOSETRON HCL 0.25 MG/5 ML VIAL IVPUSH ONE (10:30)
[2021-12-23] MEDS ORDERED: FOSAPREPITANT DIMEGLUMINE 150 MG in SODIUM CHLORIDE 145 ML IVPB ONE (10:30)
[2021-12-23] MEDS ORDERED: DEXAMETHASONE SODIUM PHOSPHATE 12 MG, DIPHENHYDRAMINE 25 MG in SODIUM CHLORIDE 100 ML IVPB ONE (10:45)
[2021-12-23] MEDS ORDERED: NIVOLUMAB 240 MG in SODIUM CHLORIDE 100 ML IVPB ONE (11:00)
[2021-12-23] MEDS ORDERED: WATER IVPB ONE (12:00)
[2021-12-23] MEDS ORDERED: DEXTROSE 5% IVPB ONE (12:00)
[2021-12-23] MEDS ORDERED: LEUCOVORIN IVPB ONE (12:00)
[2021-12-23] MEDS ORDERED: FLUOROURACIL 500 MG/10 ML VIAL IVPUSH ONE (14:00)
[2021-12-23] MEDS ORDERED: SODIUM CHLORIDE IV ONE (14:15)
[2021-12-23] MEDS ORDERED: FLUOROURACIL IV ONE (14:15)
[2021-12-23 16:59] VITALS: TEMP 98
[2021-12-23] MEDS ORDERED: PORTA CATH FLUSH 10 ML IVPUSH ONE ×2 (16:59→17:02)
[2021-12-23 17:02] VITALS: BP 116/72; PULSE 82
== END 2021-12-23 17:03 | disposition home or self-care (01) ==
LOC: JONCNONCHE 07:52
PROVIDERS: ATTEND Internal Medicine Hematology & Oncology
DX: Z51.11 Encounter for antineoplastic chemotherapy (principal); C16.0 Malignant neoplasm of cardia
CPT/HCPCS: 36415; 80053; 83735; 84439; 84443; 85025; 96366; 96367; 96375; 96411; 96413; 96415; 96417; G0498; J1453; J2469; J9190; J9263; J9299

== ENCOUNTER 2021-12-28 09:14 | Day surgery (SDC) | payer OTHER ==
[2021-12-28] MEDS ORDERED: SODIUM CHLORIDE 1,000 ML IV STA (11:06)
[2021-12-28 11:17] VITALS: TEMP 97.8
[2021-12-28] MEDS ORDERED: TBO-FILGRASTIM 300 MCG/0.5 ML DISP.SYRINGE SQ ONE (12:00)
[2021-12-28 12:13] LABS: BASO % 0.6 % (0-2.0); EOS % 2.7 % (0-4.5); HEMATOCRIT 35.4 % (35.4-49); HEMOGLOBIN 12.2 GM/dL (11.7-16.9); MCH 32.6 pg (25.7-33.7); MCHC 34.3 g/dl (32.0-35.9); MEAN CELL VOLUME 94.9 fl (80-96); MEAN PLT VOLUME 8.7 fl (7.5-11.1); MONO % 2.9 % (3.8-10.2); NEUT % 62.8 % (42.8-82.8); PLATELET COUNT 176 10^3/uL (134-434); RBC 3.74 M/mm3 (4.00-5.60); RDW 14.1 % (11.9-15.9); WHITE BLOOD COUNT 4.3 K/mm3 (4.0-10.0)
[2021-12-28 12:44] LABS: ALBUMIN 3.4 g/dl (3.4-5.0); BLOOD UREA NITROGEN 21.2 mg/dL (7-18); MAGNESIUM 2.3 mg/dL (1.8-2.4)
[2021-12-28 12:47] LABS: CREATININE 1.1 mg/dL (0.55-1.3)
[2021-12-28 12:48] LABS: TOT PROT 6.4 g/dl (6.4-8.2)
[2021-12-28 12:49] LABS: BILIRUBIN,TOTAL 0.9 mg/dL (0.2-1)
[2021-12-28 16:03] VITALS: BP 122/82; PULSE 80
== END 2021-12-28 14:05 | disposition home or self-care (01) ==
LOC: JONCCHEMO 09:14
PROVIDERS: ATTEND Internal Medicine Hematology & Oncology
PROC: 3E013GC Introduction of Other Therapeutic Substance into Subcutaneous Tissue, Percutaneous Approach (ICD-10-PCS; principal; 2021-12-28)
PROC: 3E0437Z Introduction of Electrolytic and Water Balance Substance into Central Vein, Percutaneous Approach (ICD-10-PCS; 2021-12-28)
DX: C16.0 Malignant neoplasm of cardia (principal); Z76.89 Persons encountering health services in other specified circumstances
CPT/HCPCS: 36415; 80053; 83735; 85025; 96360; 96361; 96372; J1447

== ENCOUNTER 2021-12-30 07:05 | Day surgery (SDC) | payer OTHER ==
[2021-12-30] MEDS ORDERED: SODIUM CHLORIDE 1,000 ML IV STA (12:37)
[2021-12-30] MEDS ORDERED: TBO-FILGRASTIM 300 MCG/0.5 ML DISP.SYRINGE SQ ONE (15:15)
[2021-12-30 16:25] VITALS: BP 126/84; PULSE 82; TEMP 98.2
[2021-12-30] MEDS ORDERED: PORTA CATH FLUSH 10 ML IVPUSH ONE (16:31)
== END 2021-12-30 15:10 | disposition home or self-care (01) ==
LOC: JONCCHEMO 07:05
PROVIDERS: ATTEND Internal Medicine Hematology & Oncology
PROC: 3E0337Z Introduction of Electrolytic and Water Balance Substance into Peripheral Vein, Percutaneous Approach (ICD-10-PCS; principal; 2021-12-30)
PROC: 3E013GC Introduction of Other Therapeutic Substance into Subcutaneous Tissue, Percutaneous Approach (ICD-10-PCS; 2021-12-30)
DX: Z76.89 Persons encountering health services in other specified circumstances (principal); C16.0 Malignant neoplasm of cardia
CPT/HCPCS: 96360; 96361; 96372; J1447

== ENCOUNTER 2022-01-06 08:28 | Day surgery (SDC) | payer OTHER ==
[2022-01-06 09:06] LABS: HEMATOCRIT 33.5 % (35.4-49); HEMOGLOBIN 11.6 GM/dL (11.7-16.9); MCH 32.5 pg (25.7-33.7); MCHC 34.5 g/dl (32.0-35.9); PLATELET COUNT 148 10^3/uL (134-434); RBC 3.56 M/mm3 (4.00-5.60); RDW 13.5 % (11.9-15.9); WHITE BLOOD COUNT 2.4 K/mm3 (4.0-10.0)
[2022-01-06 09:29] LABS: CALCIUM 8.7 mg/dL (8.5-10.1)
[2022-01-06 09:30] LABS: ALBUMIN 3.1 g/dl (3.4-5.0); BLOOD UREA NITROGEN 16.5 mg/dL (7-18)
[2022-01-06] MEDS ORDERED: SODIUM CHLORIDE 250 ML IV ONE (09:30)
[2022-01-06] MEDS ORDERED: FOSAPREPITANT DIMEGLUMINE 150 MG in SODIUM CHLORIDE 145 ML IVPB ONE (09:30)
[2022-01-06] MEDS ORDERED: PALONOSETRON HCL 0.25 MG/5 ML VIAL IVPUSH ONE (09:30)
[2022-01-06 09:33] LABS: CREATININE 1.2 mg/dL (0.55-1.3)
[2022-01-06 09:34] LABS: BILIRUBIN,TOTAL 0.5 mg/dL (0.2-1); TOT PROT 6.3 g/dl (6.4-8.2)
[2022-01-06] MEDS ORDERED: NIVOLUMAB 240 MG in SODIUM CHLORIDE 100 ML IVPB ONE (10:00)
[2022-01-06] MEDS ORDERED: SODIUM CHLORIDE 500 ML IV STA (10:21)
[2022-01-06] MEDS ORDERED: WATER IVPB ONE (10:30)
[2022-01-06] MEDS ORDERED: DEXTROSE 5% IVPB ONE (10:30)
[2022-01-06] MEDS ORDERED: LEUCOVORIN IVPB ONE (10:30)
[2022-01-06 10:32] LABS: ANISOCYTOSIS 0; HELMET CELLS 0; HOWELL-JOLLY BODIES 0; MACROCYTOSIS 0; OVALOCYTE 0; ROULEAU 0; SICKELED CELLS 0; TARGET CELLS 0; TEAR DROP CELLS 0; TOXIC GRANULATION 0
[2022-01-06] MEDS ORDERED: TBO-FILGRASTIM 480 MCG/0.8 ML DISP.SYRIN SQ ONE (10:40)
[2022-01-06] MEDS ORDERED: FLUOROURACIL 500 MG/10 ML VIAL IVPUSH ONE (12:30)
[2022-01-06] MEDS ORDERED: SODIUM CHLORIDE IV ONE (12:45)
[2022-01-06] MEDS ORDERED: FLUOROURACIL IV ONE (12:45)
[2022-01-06 16:01] VITALS: TEMP 97.8
[2022-01-06 16:06] VITALS: BP 124/77; PULSE 58
[2022-01-06] MEDS ORDERED: PORTA CATH FLUSH 10 ML IVPUSH PRN (16:06)
== END 2022-01-06 13:15 | disposition home or self-care (01) ==
LOC: JONCCHEMO 08:28
PROVIDERS: ATTEND Internal Medicine Hematology & Oncology
PROC: 3E0437Z Introduction of Electrolytic and Water Balance Substance into Central Vein, Percutaneous Approach (ICD-10-PCS; principal; 2022-01-06)
PROC: 3E013GC Introduction of Other Therapeutic Substance into Subcutaneous Tissue, Percutaneous Approach (ICD-10-PCS; 2022-01-06)
DX: C16.0 Malignant neoplasm of cardia (principal); Z76.89 Persons encountering health services in other specified circumstances
CPT/HCPCS: 36415; 80053; 82533; 84439; 84443; 85025; 96360; 96372; J1447

== ENCOUNTER 2022-01-08 08:21 | Day surgery (SDC) | payer OTHER ==
[2022-01-08] MEDS ORDERED: TBO-FILGRASTIM 300 MCG/0.5 ML DISP.SYRINGE SQ ONE (11:39)
[2022-01-08 12:12] LABS: HEMATOCRIT 31.9 % (35.4-49); HEMOGLOBIN 10.7 GM/dL (11.7-16.9); MCH 31.9 pg (25.7-33.7); MCHC 33.6 g/dl (32.0-35.9); MEAN PLT VOLUME 8.5 fl (7.5-11.1); PLATELET COUNT 175 10^3/uL (134-434); RBC 3.36 M/mm3 (4.00-5.60); RDW 13.6 % (11.9-15.9); WHITE BLOOD COUNT 15.6 K/mm3 (4.0-10.0)
[2022-01-08 13:04] LABS: ANISOCYTOSIS 1+; MACROCYTOSIS 1+
[2022-01-08 18:35] VITALS: BP 105/70; PULSE 73; TEMP 98.4
== END 2022-01-08 12:15 | disposition home or self-care (01) ==
LOC: JONCNONCHE 08:21
PROVIDERS: ATTEND Internal Medicine Hematology & Oncology
PROC: 3E013GC Introduction of Other Therapeutic Substance into Subcutaneous Tissue, Percutaneous Approach (ICD-10-PCS; principal; 2022-01-08)
DX: C16.0 Malignant neoplasm of cardia (principal); Z76.89 Persons encountering health services in other specified circumstances
CPT/HCPCS: 36415; 85025; 96372; J1447

== ENCOUNTER 2022-01-20 07:01 | Day surgery (SDC) | payer OTHER ==
[2022-01-20] MEDS ORDERED: SODIUM CHLORIDE 250 ML IV ONE (09:00)
[2022-01-20 09:11] LABS: HEMOGLOBIN 10.7 GM/dL (11.7-16.9); MCH 32.2 pg (25.7-33.7); MCHC 33.4 g/dl (32.0-35.9); MEAN CELL VOLUME 96.6 fl (80-96); MEAN PLT VOLUME 8.4 fl (7.5-11.1); PLATELET COUNT 200 10^3/uL (134-434); RBC 3.31 M/mm3 (4.00-5.60); WHITE BLOOD COUNT 7.4 K/mm3 (4.0-10.0)
[2022-01-20] MEDS ORDERED: FOSAPREPITANT DIMEGLUMINE 150 MG in SODIUM CHLORIDE 145 ML IVPB ONE (09:30)
[2022-01-20] MEDS ORDERED: PALONOSETRON HCL 0.25 MG/5 ML VIAL IVPUSH ONE (09:30)
[2022-01-20 09:45] LABS: CALCIUM 8.8 mg/dL (8.5-10.1)
[2022-01-20 09:46] LABS: BLOOD UREA NITROGEN 18.1 mg/dL (7-18); MAGNESIUM 2.2 mg/dL (1.8-2.4)
[2022-01-20 09:50] LABS: BILIRUBIN,TOTAL 0.6 mg/dL (0.2-1); TOT PROT 6.1 g/dl (6.4-8.2)
[2022-01-20] MEDS ORDERED: NIVOLUMAB 240 MG in SODIUM CHLORIDE 100 ML IVPB ONE (10:00)
[2022-01-20 10:23] LABS: ANISOCYTOSIS 1+; MACROCYTOSIS 1+
[2022-01-20] MEDS ORDERED: WATER IVPB ONE (10:30)
[2022-01-20] MEDS ORDERED: DEXTROSE 5% IVPB ONE (10:30)
[2022-01-20] MEDS ORDERED: LEUCOVORIN IVPB ONE (10:30)
[2022-01-20] MEDS ORDERED: DEXAMETHASONE SOD PHOSPHATE 20 MG/5 ML VIAL IVPB ONE (11:55)
[2022-01-20] MEDS ORDERED: DEXAMETHASONE SODIUM PHOSPHATE 12 MG, DIPHENHYDRAMINE 25 MG in SODIUM CHLORIDE 100 ML IVPB ONE (12:15)
[2022-01-20] MEDS ORDERED: FLUOROURACIL IV ONE (12:30)
[2022-01-20] MEDS ORDERED: SODIUM CHLORIDE IV ONE (12:30)
[2022-01-20 18:14] VITALS: TEMP 98.2
[2022-01-20 18:28] VITALS: BP 119/73; PULSE 65
[2022-01-20] MEDS ORDERED: PORTA CATH FLUSH 10 ML IVPUSH PRN (18:28)
== END 2022-01-20 15:30 | disposition home or self-care (01) ==
LOC: JONCCHEMO 07:01
PROVIDERS: ATTEND Internal Medicine Hematology & Oncology
DX: Z51.11 Encounter for antineoplastic chemotherapy (principal); C16.0 Malignant neoplasm of cardia
CPT/HCPCS: 36415; 80053; 83735; 85025; 96366; 96367; 96375; 96413; 96415; 96417; G0498; J1453; J2469; J9263; J9299

== ENCOUNTER 2022-01-22 08:03 | Day surgery (SDC) | payer OTHER ==
[2022-01-22 14:40] VITALS: BP 96/65; PULSE 72; TEMP 98.2
[2022-01-22] MEDS ORDERED: PORTA CATH FLUSH 10 ML IVPUSH PRN (14:40)
== END 2022-01-22 14:15 | disposition home or self-care (01) ==
LOC: JONCNONCHE 08:03
PROVIDERS: ATTEND Internal Medicine Hematology & Oncology
PROC: 2W54XYZ Removal of Other Device on Chest Wall (ICD-10-PCS; principal; 2022-01-22)
DX: Z53.8 Procedure and treatment not carried out for other reasons (principal)

== ENCOUNTER 2022-02-03 07:10 | Day surgery (SDC) | payer OTHER ==
[2022-02-03] MEDS ORDERED: SODIUM CHLORIDE 250 ML IV ONE (09:30)
[2022-02-03] MEDS ORDERED: FOSAPREPITANT DIMEGLUMINE 150 MG in SODIUM CHLORIDE 145 ML IVPB ONE (10:00)
[2022-02-03] MEDS ORDERED: DEXAMETHASONE SODIUM PHOSPHATE 12 MG, DIPHENHYDRAMINE 25 MG in SODIUM CHLORIDE 100 ML IVPB ONE (10:00)
[2022-02-03] MEDS ORDERED: PALONOSETRON HCL 0.25 MG/5 ML VIAL IVPUSH ONE (10:00)
[2022-02-03] MEDS ORDERED: NIVOLUMAB 240 MG in SODIUM CHLORIDE 100 ML IVPB ONE (10:30)
[2022-02-03] MEDS ORDERED: WATER IVPB ONE (11:00)
[2022-02-03] MEDS ORDERED: LEUCOVORIN IVPB ONE (11:00)
[2022-02-03] MEDS ORDERED: DEXTROSE 5% IVPB ONE (11:00)
[2022-02-03] MEDS ORDERED: SODIUM CHLORIDE 250 ML IV STA (11:38)
[2022-02-03] MEDS ORDERED: FLUOROURACIL CP ONE (13:00)
[2022-02-03] MEDS ORDERED: SODIUM CHLORIDE CP ONE (13:00)
[2022-02-03 16:32] VITALS: BP 135/88; PULSE 65; TEMP 98.4
[2022-02-03] MEDS ORDERED: PORTA CATH FLUSH 10 ML IVPUSH PRN (16:32)
== END 2022-02-03 16:41 | disposition home or self-care (01) ==
LOC: JONCCHEMO 07:10
PROVIDERS: ATTEND Internal Medicine Hematology & Oncology
DX: Z51.11 Encounter for antineoplastic chemotherapy (principal); C16.0 Malignant neoplasm of cardia
CPT/HCPCS: 36415; 80053; 85025; 96361; 96366; 96367; 96375; 96413; 96415; 96417; G0498; J1453; J2469; J9263; J9299

== ENCOUNTER 2022-02-08 06:45 | Day surgery (SDC) | payer OTHER ==
[2022-02-08] MEDS ORDERED: TBO-FILGRASTIM 300 MCG/0.5 ML DISP.SYRINGE SQ ONE (10:00)
== END 2022-02-08 12:35 | disposition home or self-care (01) ==
LOC: JONCCHEMO 06:45
PROVIDERS: ATTEND Internal Medicine Hematology & Oncology
PROC: 3E013GC Introduction of Other Therapeutic Substance into Subcutaneous Tissue, Percutaneous Approach (ICD-10-PCS; principal; 2022-02-08)
DX: C16.2 Malignant neoplasm of body of stomach (principal); Z76.89 Persons encountering health services in other specified circumstances
CPT/HCPCS: 96372; J1447

== ENCOUNTER 2022-02-17 07:34 | Day surgery (SDC) | payer OTHER ==
[2022-02-17] MEDS ORDERED: SODIUM CHLORIDE 250 ML IV ONE (09:00)
[2022-02-17] MEDS ORDERED: FOSAPREPITANT DIMEGLUMINE 150 MG in SODIUM CHLORIDE 145 ML IVPB ONE (09:30)
[2022-02-17] MEDS ORDERED: DEXAMETHASONE SODIUM PHOSPHATE 12 MG, DIPHENHYDRAMINE 25 MG in SODIUM CHLORIDE 100 ML IVPB ONE (09:30)
[2022-02-17] MEDS ORDERED: PALONOSETRON HCL 0.25 MG/5 ML VIAL IVPUSH ONE (09:30)
[2022-02-17 09:55] LABS: BASO % 0.7 % (0-2.0); EOS % 3.4 % (0-4.5); HEMATOCRIT 32.6 % (35.4-49); HEMOGLOBIN 11.1 GM/dL (11.7-16.9); LYMPH % 31.6 % (8-40); MCH 32.8 pg (25.7-33.7); MEAN CELL VOLUME 96.5 fl (80-96); MEAN PLT VOLUME 7.5 fl (7.5-11.1); MONO % 18.4 % (3.8-10.2); NEUT % 45.9 % (42.8-82.8); PLATELET COUNT 142 10^3/uL (134-434); RBC 3.38 M/mm3 (4.00-5.60); RDW 17.3 % (11.9-15.9); WHITE BLOOD COUNT 4.8 K/mm3 (4.0-10.0)
[2022-02-17] MEDS ORDERED: NIVOLUMAB 240 MG in SODIUM CHLORIDE 100 ML IVPB ONE (10:00)
[2022-02-17 10:16] LABS: BLOOD UREA NITROGEN 10.4 mg/dL (7-18); CALCIUM 8.6 mg/dL (8.5-10.1)
[2022-02-17 10:19] LABS: CREATININE 0.9 mg/dL (0.55-1.3)
[2022-02-17 10:21] LABS: BILIRUBIN,TOTAL 0.5 mg/dL (0.2-1); TOT PROT 6.2 g/dl (6.4-8.2)
[2022-02-17] MEDS ORDERED: WATER IVPB ONE (10:30)
[2022-02-17] MEDS ORDERED: LEUCOVORIN IVPB ONE (10:30)
[2022-02-17] MEDS ORDERED: DEXTROSE 5% IVPB ONE (10:30)
[2022-02-17] MEDS ORDERED: SODIUM CHLORIDE CP ONE (12:00)
[2022-02-17] MEDS ORDERED: FLUOROURACIL CP ONE (12:00)
[2022-02-17 12:51] VITALS: BP 123/87; PULSE 73; TEMP 98.3
[2022-02-17] MEDS ORDERED: PORTA CATH FLUSH 10 ML IVPUSH PRN (17:45)
== END 2022-02-17 16:40 | disposition home or self-care (01) ==
LOC: JONCCHEMO 07:34
PROVIDERS: ATTEND Internal Medicine Hematology & Oncology
DX: Z51.11 Encounter for antineoplastic chemotherapy (principal); C16.2 Malignant neoplasm of body of stomach
CPT/HCPCS: 36415; 80053; 82378; 84439; 84443; 85025; 96366; 96367; 96375; 96413; 96415; 96417; J1453; J2469; J9263; J9299

== ENCOUNTER 2022-02-22 06:38 | Day surgery (SDC) | payer OTHER ==
[2022-02-22] MEDS ORDERED: SODIUM CHLORIDE 500 ML IV ONE (14:30)
[2022-02-22 15:44] VITALS: TEMP 98.4
[2022-02-22] MEDS ORDERED: PORTA CATH FLUSH 10 ML IVPUSH PRN (15:48)
[2022-02-22 16:36] VITALS: BP 152/82; PULSE 80
== END 2022-02-22 16:40 | disposition home or self-care (01) ==
LOC: JONCCHEMO 06:38
PROVIDERS: ATTEND Internal Medicine Hematology & Oncology
PROC: 3E0437Z Introduction of Electrolytic and Water Balance Substance into Central Vein, Percutaneous Approach (ICD-10-PCS; principal; 2022-02-22)
DX: C16.2 Malignant neoplasm of body of stomach (principal); Z76.89 Persons encountering health services in other specified circumstances
CPT/HCPCS: 96360; 96361

== ENCOUNTER 2022-02-24 06:26 | Day surgery (SDC) | payer OTHER ==
[2022-02-24] MEDS ORDERED: TBO-FILGRASTIM 300 MCG/0.5 ML DISP.SYRINGE SQ ONE (10:00)
[2022-02-24 15:42] VITALS: BP 118/89; PULSE 82; TEMP 98.6
== END 2022-02-24 12:30 | disposition home or self-care (01) ==
LOC: JONCCHEMO 06:26
PROVIDERS: ATTEND Internal Medicine Hematology & Oncology
PROC: 3E013GC Introduction of Other Therapeutic Substance into Subcutaneous Tissue, Percutaneous Approach (ICD-10-PCS; principal; 2022-02-24)
DX: C16.2 Malignant neoplasm of body of stomach (principal); Z76.89 Persons encountering health services in other specified circumstances
CPT/HCPCS: 96372; J1447

== ENCOUNTER 2022-03-03 06:55 | Day surgery (SDC) | payer OTHER ==
[2022-03-03] MEDS ORDERED: SODIUM CHLORIDE 250 ML IV ONE (09:00)
[2022-03-03 09:27] LABS: HEMATOCRIT 32.4 % (35.4-49); MCH 33.1 pg (25.7-33.7); MCHC 34.1 g/dl (32.0-35.9); MEAN CELL VOLUME 96.9 fl (80-96); MEAN PLT VOLUME 7.6 fl (7.5-11.1); PLATELET COUNT 169 10^3/uL (134-434); RBC 3.34 M/mm3 (4.00-5.60); RDW 17.2 % (11.9-15.9); WHITE BLOOD COUNT 4.3 K/mm3 (4.0-10.0)
[2022-03-03] MEDS ORDERED: FOSAPREPITANT DIMEGLUMINE 150 MG in SODIUM CHLORIDE 145 ML IVPB ONE (09:30)
[2022-03-03] MEDS ORDERED: DEXAMETHASONE SODIUM PHOSPHATE 12 MG, DIPHENHYDRAMINE 25 MG in SODIUM CHLORIDE 100 ML IVPB ONE (09:30)
[2022-03-03] MEDS ORDERED: PALONOSETRON HCL 0.25 MG/5 ML VIAL IVPUSH ONE (09:30)
[2022-03-03] MEDS ORDERED: SODIUM CHLORIDE 500 ML IV STA (09:54)
[2022-03-03 09:56] LABS: ALBUMIN 3.2 g/dl (3.4-5.0)
[2022-03-03 09:59] LABS: CREATININE 1.2 mg/dL (0.55-1.3)
[2022-03-03] MEDS ORDERED: NIVOLUMAB 240 MG in SODIUM CHLORIDE 100 ML IVPB ONE (10:00)
[2022-03-03 10:01] LABS: BILIRUBIN,TOTAL 0.8 mg/dL (0.2-1); TOT PROT 6.2 g/dl (6.4-8.2)
[2022-03-03 10:16] LABS: ANISOCYTOSIS 0; HELMET CELLS 0; HOWELL-JOLLY BODIES 0; MACROCYTOSIS 0; OVALOCYTE 0; ROULEAU 0; SICKELED CELLS 0; TARGET CELLS 0; TEAR DROP CELLS 0; TOXIC GRANULATION 0
[2022-03-03] MEDS ORDERED: LEUCOVORIN IVPB ONE (10:30)
[2022-03-03] MEDS ORDERED: WATER IVPB ONE (10:30)
[2022-03-03] MEDS ORDERED: DEXTROSE 5% IVPB ONE (10:30)
[2022-03-03] MEDS ORDERED: SODIUM CHLORIDE CP ONE (12:00)
[2022-03-03] MEDS ORDERED: FLUOROURACIL CP ONE (12:00)
[2022-03-03 16:56] VITALS: TEMP 99.1
[2022-03-03 17:12] VITALS: BP 118/75; PULSE 61
== END 2022-03-03 15:55 | disposition home or self-care (01) ==
LOC: JONCCHEMO 06:55
PROVIDERS: ATTEND Internal Medicine Hematology & Oncology
PROC: 3E04305 Introduction of Other Antineoplastic into Central Vein, Percutaneous Approach (ICD-10-PCS; principal; 2022-03-03)
PROC: 3E04305 Introduction of Other Antineoplastic into Central Vein, Percutaneous Approach (ICD-10-PCS; 2022-03-03)
PROC: 3E043GC Introduction of Other Therapeutic Substance into Central Vein, Percutaneous Approach (ICD-10-PCS; 2022-03-03)
PROC: 3E0437Z Introduction of Electrolytic and Water Balance Substance into Central Vein, Percutaneous Approach (ICD-10-PCS; 2022-03-03)
DX: Z51.11 Encounter for antineoplastic chemotherapy (principal); C16.2 Malignant neoplasm of body of stomach
CPT/HCPCS: 36415; 80053; 84439; 84443; 85025; 96361; 96366; 96367; 96368; 96375; 96413; 96415; 96417; G0498; J1453; J2469; J9263; J9299

== ENCOUNTER 2022-03-05 07:55 | Day surgery (SDC) | payer OTHER ==
[2022-03-05 11:11] VITALS: BP 113/81; PULSE 82; TEMP 98.4
[2022-03-05] MEDS ORDERED: PORTA CATH FLUSH 10 ML IVPUSH PRN (12:00)
== END 2022-03-05 12:00 | disposition home or self-care (01) ==
LOC: JONCCHEMO 07:55
PROVIDERS: ATTEND Internal Medicine Hematology & Oncology
DX: Z53.8 Procedure and treatment not carried out for other reasons (principal)

== ENCOUNTER 2022-03-08 08:31 | Day surgery (SDC) | payer OTHER ==
[2022-03-08 13:29] VITALS: BP 122/81; PULSE 89; TEMP 98.6
[2022-03-08] MEDS ORDERED: TBO-FILGRASTIM 300 MCG/0.5 ML DISP.SYRINGE SQ ONE (13:45)
== END 2022-03-08 13:45 | disposition home or self-care (01) ==
LOC: JONCCHEMO 08:31
PROVIDERS: ATTEND Internal Medicine Hematology & Oncology
PROC: 3E013GC Introduction of Other Therapeutic Substance into Subcutaneous Tissue, Percutaneous Approach (ICD-10-PCS; principal; 2022-03-08)
DX: C16.2 Malignant neoplasm of body of stomach (principal); Z76.89 Persons encountering health services in other specified circumstances
CPT/HCPCS: 96372; J1447

== ENCOUNTER 2022-03-10 07:32 | Day surgery (SDC) | payer OTHER ==
[2022-03-10] MEDS ORDERED: TBO-FILGRASTIM 300 MCG/0.5 ML DISP.SYRINGE SQ ONE (13:30)
[2022-03-10 17:50] VITALS: BP 128/81; PULSE 79; TEMP 98.5
== END 2022-03-10 14:15 | disposition home or self-care (01) ==
LOC: JONCCHEMO 07:32
PROVIDERS: ATTEND Internal Medicine Hematology & Oncology
PROC: 3E013GC Introduction of Other Therapeutic Substance into Subcutaneous Tissue, Percutaneous Approach (ICD-10-PCS; principal; 2022-03-10)
DX: C16.2 Malignant neoplasm of body of stomach (principal); Z76.89 Persons encountering health services in other specified circumstances
CPT/HCPCS: 96372; J1447

== ENCOUNTER 2022-03-17 06:47 | Day surgery (SDC) | payer OTHER ==
[2022-03-17] MEDS ORDERED: PALONOSETRON HCL 0.25 MG/5 ML VIAL IVPUSH ONE (10:00)
[2022-03-17] MEDS ORDERED: SODIUM CHLORIDE 250 ML IV ONE (10:00)
[2022-03-17] MEDS ORDERED: DEXAMETHASONE SODIUM PHOSPHATE 12 MG, DIPHENHYDRAMINE 25 MG in SODIUM CHLORIDE 100 ML IVPB ONE (10:00)
[2022-03-17] MEDS ORDERED: FOSAPREPITANT DIMEGLUMINE 150 MG in SODIUM CHLORIDE 145 ML IVPB ONE (10:00)
[2022-03-17 10:04] LABS: HEMATOCRIT 32.4 % (35.4-49); HEMOGLOBIN 10.9 GM/dL (11.7-16.9); MCH 32.7 pg (25.7-33.7); MCHC 33.6 g/dl (32.0-35.9); MEAN CELL VOLUME 97.5 fl (80-96); MEAN PLT VOLUME 7.6 fl (7.5-11.1); PLATELET COUNT 172 10^3/uL (134-434); RBC 3.32 M/mm3 (4.00-5.60); WHITE BLOOD COUNT 3.9 K/mm3 (4.0-10.0)
[2022-03-17] MEDS ORDERED: NIVOLUMAB 240 MG in SODIUM CHLORIDE 100 ML IVPB ONE (10:30)
[2022-03-17 10:43] LABS: ANISOCYTOSIS 0; HELMET CELLS 0; HOWELL-JOLLY BODIES 0; MACROCYTOSIS 0; OVALOCYTE 0; ROULEAU 0; SICKELED CELLS 0; TARGET CELLS 0; TEAR DROP CELLS 0; TOXIC GRANULATION 0
[2022-03-17 10:46] LABS: CALCIUM 8.8 mg/dL (8.5-10.1)
[2022-03-17 10:47] LABS: BLOOD UREA NITROGEN 16.5 mg/dL (7-18)
[2022-03-17 10:51] LABS: BILIRUBIN,TOTAL 0.4 mg/dL (0.2-1); TOT PROT 6.4 g/dl (6.4-8.2)
[2022-03-17] MEDS ORDERED: LEUCOVORIN IVPB ONE (11:00)
[2022-03-17] MEDS ORDERED: DEXTROSE 5% IVPB ONE (11:00)
[2022-03-17] MEDS ORDERED: WATER IVPB ONE (11:00)
[2022-03-17] MEDS ORDERED: FLUOROURACIL CP ONE (13:00)
[2022-03-17] MEDS ORDERED: SODIUM CHLORIDE CP ONE (13:00)
[2022-03-17 19:00] VITALS: BP 123/80; PULSE 69; TEMP 98.6
[2022-03-17] MEDS ORDERED: PORTA CATH FLUSH 10 ML IVPUSH PRN (19:00)
== END 2022-03-17 16:15 | disposition home or self-care (01) ==
LOC: JONCCHEMO 06:47
PROVIDERS: ATTEND Internal Medicine Hematology & Oncology
DX: Z51.11 Encounter for antineoplastic chemotherapy (principal); C16.2 Malignant neoplasm of body of stomach
CPT/HCPCS: 36415; 80053; 85025; 96366; 96367; 96375; 96413; 96415; 96417; G0498; J1453; J2469; J9263; J9299

== ENCOUNTER 2022-03-19 08:03 | Day surgery (SDC) | payer OTHER ==
[2022-03-19 14:50] VITALS: BP 125/82; PULSE 73; TEMP 98.8
[2022-03-19] MEDS ORDERED: PORTA CATH FLUSH 10 ML IVPUSH PRN (16:12)
== END 2022-03-19 14:00 | disposition home or self-care (01) ==
LOC: JONCCHEMO 08:03
PROVIDERS: ATTEND Internal Medicine Hematology & Oncology
DX: Z53.8 Procedure and treatment not carried out for other reasons (principal)
CPT/HCPCS: 96365

== ENCOUNTER 2022-03-23 06:50 | Day surgery (SDC) | payer OTHER ==
[2022-03-23] MEDS ORDERED: TBO-FILGRASTIM 300 MCG/0.5 ML DISP.SYRINGE SQ ONE (10:00)
[2022-03-23 15:44] VITALS: BP 141/84; PULSE 68; TEMP 97.7
== END 2022-03-23 13:00 | disposition home or self-care (01) ==
LOC: JONCCHEMO 06:50
PROVIDERS: ATTEND Internal Medicine Hematology & Oncology
PROC: 3E013GC Introduction of Other Therapeutic Substance into Subcutaneous Tissue, Percutaneous Approach (ICD-10-PCS; principal; 2022-03-23)
DX: Z51.11 Encounter for antineoplastic chemotherapy (principal); C16.2 Malignant neoplasm of body of stomach; Z76.89 Persons encountering health services in other specified circumstances
CPT/HCPCS: 96372; J1447

== ENCOUNTER 2022-03-24 07:47 | Day surgery (SDC) | payer OTHER ==
[2022-03-24] MEDS ORDERED: TBO-FILGRASTIM 300 MCG/0.5 ML DISP.SYRINGE SQ ONE (12:00)
[2022-03-24 16:59] VITALS: BP 128/55; PULSE 80; TEMP 98
== END 2022-03-24 13:15 | disposition home or self-care (01) ==
LOC: JONCCHEMO 07:47
PROVIDERS: ATTEND Internal Medicine Hematology & Oncology
PROC: 3E013GC Introduction of Other Therapeutic Substance into Subcutaneous Tissue, Percutaneous Approach (ICD-10-PCS; principal; 2022-03-24)
DX: C16.2 Malignant neoplasm of body of stomach (principal); Z76.89 Persons encountering health services in other specified circumstances
CPT/HCPCS: 96372; J1447

== ENCOUNTER 2022-03-31 08:11 | Day surgery (SDC) | payer OTHER ==
[2022-03-31 09:14] VITALS: TEMP 98.4
[2022-03-31 09:17] LABS: HEMATOCRIT 33.2 % (35.4-49); HEMOGLOBIN 11.3 GM/dL (11.7-16.9); MCH 33.3 pg (25.7-33.7); MCHC 33.9 g/dl (32.0-35.9); MEAN CELL VOLUME 98.3 fl (80-96); MEAN PLT VOLUME 8.2 fl (7.5-11.1); PLATELET COUNT 186 10^3/uL (134-434); RBC 3.38 M/mm3 (4.00-5.60); WHITE BLOOD COUNT 5.2 K/mm3 (4.0-10.0)
[2022-03-31] MEDS ORDERED: SODIUM CHLORIDE 250 ML IV ONE (09:30)
[2022-03-31 09:46] LABS: ALBUMIN 3.3 g/dl (3.4-5.0); BLOOD UREA NITROGEN 13.5 mg/dL (7-18)
[2022-03-31 09:49] LABS: CREATININE 1.1 mg/dL (0.55-1.3)
[2022-03-31 09:50] LABS: BILIRUBIN,TOTAL 0.6 mg/dL (0.2-1); TOT PROT 6.5 g/dl (6.4-8.2)
[2022-03-31 09:58] LABS: ANISOCYTOSIS 1+; MACROCYTOSIS 0
[2022-03-31] MEDS ORDERED: PALONOSETRON HCL 0.25 MG/5 ML VIAL IVPUSH ONE (10:00)
[2022-03-31] MEDS ORDERED: FOSAPREPITANT DIMEGLUMINE 150 MG in SODIUM CHLORIDE 145 ML IVPB ONE (10:00)
[2022-03-31] MEDS ORDERED: DEXAMETHASONE SODIUM PHOSPHATE 12 MG, DIPHENHYDRAMINE 25 MG in SODIUM CHLORIDE 100 ML IVPB ONE (10:00)
[2022-03-31] MEDS ORDERED: NIVOLUMAB 240 MG in SODIUM CHLORIDE 100 ML IVPB ONE (10:30)
[2022-03-31] MEDS ORDERED: DEXTROSE 5% IVPB ONE (11:00)
[2022-03-31] MEDS ORDERED: LEUCOVORIN IVPB ONE (11:00)
[2022-03-31] MEDS ORDERED: WATER IVPB ONE (11:00)
[2022-03-31] MEDS ORDERED: FLUOROURACIL CP ONE (13:00)
[2022-03-31] MEDS ORDERED: SODIUM CHLORIDE CP ONE (13:00)
[2022-03-31 16:43] VITALS: BP 125/90; PULSE 68
[2022-03-31] MEDS ORDERED: PORTA CATH FLUSH 10 ML IVPUSH PRN (16:43)
== END 2022-03-31 16:52 | disposition home or self-care (01) ==
LOC: JONCCHEMO 08:11
PROVIDERS: ATTEND Internal Medicine Hematology & Oncology
PROC: 3E04305 Introduction of Other Antineoplastic into Central Vein, Percutaneous Approach (ICD-10-PCS; principal; 2022-03-31)
PROC: 3E04305 Introduction of Other Antineoplastic into Central Vein, Percutaneous Approach (ICD-10-PCS; 2022-03-31)
PROC: 3E043GC Introduction of Other Therapeutic Substance into Central Vein, Percutaneous Approach (ICD-10-PCS; 2022-03-31)
PROC: 3E0437Z Introduction of Electrolytic and Water Balance Substance into Central Vein, Percutaneous Approach (ICD-10-PCS; 2022-03-31)
DX: Z51.11 Encounter for antineoplastic chemotherapy (principal); C16.2 Malignant neoplasm of body of stomach
CPT/HCPCS: 36415; 80053; 84439; 84443; 85025; 96367; 96368; 96375; 96413; 96415; 96417; G0498; J1453; J2469; J9263; J9299

== ENCOUNTER 2022-04-02 07:24 | Day surgery (SDC) | payer OTHER ==
[2022-04-02 15:43] VITALS: BP 116/80; PULSE 84
[2022-04-02 15:51] VITALS: TEMP 98.3
[2022-04-02] MEDS ORDERED: PORTA CATH FLUSH 10 ML IVPUSH PRN (17:01)
== END 2022-04-02 14:30 | disposition home or self-care (01) ==
LOC: JONCCHEMO 07:24
PROVIDERS: ATTEND Internal Medicine Hematology & Oncology
DX: Z53.8 Procedure and treatment not carried out for other reasons (principal)

== ENCOUNTER 2022-04-14 08:03 | Day surgery (SDC) | payer OTHER ==
[2022-04-14] MEDS ORDERED: SODIUM CHLORIDE 250 ML IV ONE (09:00)
[2022-04-14 09:10] LABS: EOS % 4.5 % (0-4.5); HEMATOCRIT 31.7 % (35.4-49); HEMOGLOBIN 10.7 GM/dL (11.7-16.9); LYMPH % 31.3 % (8-40); MCH 33.6 pg (25.7-33.7); MCHC 33.7 g/dl (32.0-35.9); MEAN CELL VOLUME 99.9 fl (80-96); MEAN PLT VOLUME 7.7 fl (7.5-11.1); MONO % 13.9 % (3.8-10.2); NEUT % 49.3 % (42.8-82.8); PLATELET COUNT 185 10^3/uL (134-434); RBC 3.17 M/mm3 (4.00-5.60); RDW 16.6 % (11.9-15.9); WHITE BLOOD COUNT 4.4 K/mm3 (4.0-10.0)
[2022-04-14] MEDS ORDERED: FOSAPREPITANT DIMEGLUMINE 150 MG in SODIUM CHLORIDE 145 ML IVPB ONE (09:30)
[2022-04-14] MEDS ORDERED: DEXAMETHASONE SODIUM PHOSPHATE 12 MG, DIPHENHYDRAMINE 25 MG in SODIUM CHLORIDE 100 ML IVPB ONE (09:30)
[2022-04-14] MEDS ORDERED: PALONOSETRON HCL 0.25 MG/5 ML VIAL IVPUSH ONE (09:30)
[2022-04-14 09:49] LABS: CALCIUM 9.1 mg/dL (8.5-10.1)
[2022-04-14 09:50] LABS: ALBUMIN 3.5 g/dl (3.4-5.0); BLOOD UREA NITROGEN 7.5 mg/dL (7-18)
[2022-04-14 09:53] LABS: CREATININE 1.2 mg/dL (0.55-1.3)
[2022-04-14 09:55] LABS: BILIRUBIN,TOTAL 0.6 mg/dL (0.2-1); TOT PROT 6.7 g/dl (6.4-8.2)
[2022-04-14] MEDS ORDERED: NIVOLUMAB 240 MG in SODIUM CHLORIDE 100 ML IVPB ONE (10:00)
[2022-04-14 10:25] VITALS: TEMP 98.4
[2022-04-14] MEDS ORDERED: PORTA CATH FLUSH 10 ML IVPUSH PRN (10:26)
[2022-04-14] MEDS ORDERED: DEXTROSE 5% IVPB ONE (10:30)
[2022-04-14] MEDS ORDERED: LEUCOVORIN IVPB ONE (10:30)
[2022-04-14] MEDS ORDERED: WATER IVPB ONE (10:30)
[2022-04-14] MEDS ORDERED: FLUOROURACIL CP ONE (12:30)
[2022-04-14] MEDS ORDERED: SODIUM CHLORIDE CP ONE (12:30)
[2022-04-14 17:54] VITALS: BP 112/72; PULSE 66
== END 2022-04-14 15:30 | disposition home or self-care (01) ==
LOC: JONCCHEMO 08:03
PROVIDERS: ATTEND Internal Medicine Hematology & Oncology
DX: Z51.11 Encounter for antineoplastic chemotherapy (principal); C16.2 Malignant neoplasm of body of stomach
CPT/HCPCS: 36415; 80053; 82378; 85025; 96366; 96367; 96375; 96413; 96415; 96417; G0498; J1453; J2469; J9263; J9299

== ENCOUNTER 2022-04-16 07:22 | Day surgery (SDC) | payer OTHER ==
[2022-04-16 17:19] VITALS: BP 99/66; PULSE 81; TEMP 97.5
== END 2022-04-16 14:15 | disposition home or self-care (01) ==
LOC: JONCCHEMO 07:22
PROVIDERS: ATTEND Internal Medicine Hematology & Oncology
DX: Z53.8 Procedure and treatment not carried out for other reasons (principal)

== ENCOUNTER 2022-04-28 06:33 | Day surgery (SDC) | payer OTHER ==
[2022-04-28] MEDS ORDERED: SODIUM CHLORIDE 250 ML IV ONE (09:00)
[2022-04-28] MEDS ORDERED: PALONOSETRON HCL 0.25 MG/5 ML VIAL IVPUSH ONE (09:30)
[2022-04-28] MEDS ORDERED: FOSAPREPITANT DIMEGLUMINE 150 MG in SODIUM CHLORIDE 145 ML IVPB ONE (09:30)
[2022-04-28] MEDS ORDERED: DEXAMETHASONE SODIUM PHOSPHATE 12 MG, DIPHENHYDRAMINE 25 MG in SODIUM CHLORIDE 100 ML IVPB ONE (09:30)
[2022-04-28] MEDS ORDERED: NIVOLUMAB 240 MG in SODIUM CHLORIDE 100 ML IVPB ONE (10:00)
[2022-04-28 10:04] LABS: BASO % 0.8 % (0-2.0); EOS % 3.5 % (0-4.5); HEMATOCRIT 31.3 % (35.4-49); HEMOGLOBIN 10.6 GM/dL (11.7-16.9); LYMPH % 29.1 % (8-40); MCH 34.1 pg (25.7-33.7); MCHC 33.9 g/dl (32.0-35.9); MEAN CELL VOLUME 100.4 fl (80-96); MEAN PLT VOLUME 7.9 fl (7.5-11.1); MONO % 16.9 % (3.8-10.2); NEUT % 49.7 % (42.8-82.8); PLATELET COUNT 181 10^3/uL (134-434); RBC 3.12 M/mm3 (4.00-5.60); RDW 16.1 % (11.9-15.9); WHITE BLOOD COUNT 4.5 K/mm3 (4.0-10.0)
[2022-04-28 10:15] LABS: ALBUMIN 3.2 g/dl (3.4-5.0); CALCIUM 8.9 mg/dL (8.5-10.1); MAGNESIUM 2.1 mg/dL (1.8-2.4)
[2022-04-28 10:20] LABS: BILIRUBIN,TOTAL 0.3 mg/dL (0.2-1); TOT PROT 6.7 g/dl (6.4-8.2)
[2022-04-28] MEDS ORDERED: LEUCOVORIN IVPB ONE (10:30)
[2022-04-28] MEDS ORDERED: DEXTROSE 5% IVPB ONE (10:30)
[2022-04-28] MEDS ORDERED: WATER IVPB ONE (10:30)
[2022-04-28] MEDS ORDERED: SODIUM CHLORIDE CP ONE (12:30)
[2022-04-28] MEDS ORDERED: FLUOROURACIL CP ONE (12:30)
[2022-04-28 16:57] VITALS: RESP 18; TEMP 98.5
[2022-04-28 17:01] VITALS: BP 136/79; PULSE 65
== END 2022-04-28 16:30 | disposition home or self-care (01) ==
LOC: JONCCHEMO 06:33
PROVIDERS: ATTEND Internal Medicine Hematology & Oncology
DX: Z51.11 Encounter for antineoplastic chemotherapy (principal); C16.2 Malignant neoplasm of body of stomach
CPT/HCPCS: 36415; 80053; 83735; 85025; 96366; 96367; 96375; 96413; 96417; G0498; J1453; J2469; J9263; J9299

== ENCOUNTER 2022-05-12 06:59 | Day surgery (SDC) | payer OTHER ==
[2022-05-12 07:52] LABS: BASO % 0.5 % (0-2.0); HEMATOCRIT 31.6 % (35.4-49); HEMOGLOBIN 10.6 GM/dL (11.7-16.9); LYMPH % 36.6 % (8-40); MCH 33.5 pg (25.7-33.7); MCHC 33.5 g/dl (32.0-35.9); MEAN CELL VOLUME 99.9 fl (80-96); MONO % 17.8 % (3.8-10.2); NEUT % 40.1 % (42.8-82.8); PLATELET COUNT 170 10^3/uL (134-434); RBC 3.16 M/mm3 (4.00-5.60); RDW 16.1 % (11.9-15.9); WHITE BLOOD COUNT 4.9 K/mm3 (4.0-10.0)
[2022-05-12 08:08] LABS: ALBUMIN 3.4 g/dl (3.4-5.0); BLOOD UREA NITROGEN 14.2 mg/dL (7-18); CALCIUM 9.1 mg/dL (8.5-10.1)
[2022-05-12 08:13] LABS: BILIRUBIN,TOTAL 0.4 mg/dL (0.2-1); CREATININE 1.1 mg/dL (0.55-1.3)
[2022-05-12 08:15] LABS: TOT PROT 6.6 g/dl (6.4-8.2)
[2022-05-12] MEDS ORDERED: SODIUM CHLORIDE 250 ML IV ONE (09:30)
[2022-05-12] MEDS ORDERED: DEXAMETHASONE SODIUM PHOSPHATE 12 MG, DIPHENHYDRAMINE 25 MG in SODIUM CHLORIDE 100 ML IVPB ONE (10:00)
[2022-05-12] MEDS ORDERED: FOSAPREPITANT DIMEGLUMINE 150 MG in SODIUM CHLORIDE 145 ML IVPB ONE (10:00)
[2022-05-12] MEDS ORDERED: PALONOSETRON HCL 0.25 MG/5 ML VIAL IVPUSH ONE (10:00)
[2022-05-12] MEDS ORDERED: NIVOLUMAB 240 MG in SODIUM CHLORIDE 100 ML IVPB ONE (10:30)
[2022-05-12] MEDS ORDERED: LEUCOVORIN IVPB ONE (11:00)
[2022-05-12] MEDS ORDERED: WATER IVPB ONE (11:00)
[2022-05-12] MEDS ORDERED: DEXTROSE 5% IVPB ONE (11:00)
[2022-05-12] MEDS ORDERED: SODIUM CHLORIDE CP ONE (13:00)
[2022-05-12] MEDS ORDERED: FLUOROURACIL CP ONE (13:00)
[2022-05-12 16:20] VITALS: BP 136/62; PULSE 70; RESP 18; TEMP 98.1
== END 2022-05-12 14:30 | disposition home or self-care (01) ==
LOC: JONCCHEMO 06:59
PROVIDERS: ATTEND Internal Medicine Hematology & Oncology
DX: Z51.11 Encounter for antineoplastic chemotherapy (principal); C16.2 Malignant neoplasm of body of stomach
CPT/HCPCS: 36415; 80053; 85025; 96366; 96367; 96375; 96413; 96415; 96417; G0498; J1453; J2469; J9263; J9299

== ENCOUNTER 2022-05-14 07:21 | Day surgery (SDC) | payer OTHER ==
[2022-05-14 13:01] VITALS: PULSE 68; RESP 18; TEMP 98.9
[2022-05-14] MEDS ORDERED: PORTA CATH FLUSH 10 ML IVPUSH PRN (15:02)
[2022-05-14 15:03] VITALS: BP 115/59
== END 2022-05-14 13:15 | disposition home or self-care (01) ==
LOC: JONCCHEMO 07:21
PROVIDERS: ATTEND Internal Medicine Hematology & Oncology
DX: Z53.8 Procedure and treatment not carried out for other reasons (principal)

== ENCOUNTER 2022-05-26 07:12 | Day surgery (SDC) | payer OTHER ==
[2022-05-26] MEDS ORDERED: SODIUM CHLORIDE 250 ML IV ONE (09:30)
[2022-05-26 09:54] LABS: HEMATOCRIT 34.1 % (35.4-49); HEMOGLOBIN 11.5 GM/dL (11.7-16.9); MCHC 33.6 g/dl (32.0-35.9); MEAN CELL VOLUME 101.2 fl (80-96); PLATELET COUNT 154 10^3/uL (134-434); RBC 3.37 M/mm3 (4.00-5.60); RDW 17.1 % (11.9-15.9); WHITE BLOOD COUNT 3.8 K/mm3 (4.0-10.0)
[2022-05-26] MEDS ORDERED: FOSAPREPITANT DIMEGLUMINE 150 MG in SODIUM CHLORIDE 145 ML IVPB ONE (10:00)
[2022-05-26] MEDS ORDERED: DEXAMETHASONE SODIUM PHOSPHATE 12 MG, DIPHENHYDRAMINE 25 MG in SODIUM CHLORIDE 100 ML IVPB ONE (10:00)
[2022-05-26] MEDS ORDERED: PALONOSETRON HCL 0.25 MG/5 ML VIAL IVPUSH ONE (10:00)
[2022-05-26 10:01] LABS: INR 1.07 (0.83-1.09); PROTHROMBIN TIME (PATIENT) 12.3 SEC (9.7-13.0)
[2022-05-26 10:04] LABS: ACTIVATED PTT 28.6 SECONDS (25.2-36.5)
[2022-05-26 10:26] LABS: ALBUMIN 3.5 g/dl (3.4-5.0); BLOOD UREA NITROGEN 16.3 mg/dL (7-18); CALCIUM 9.2 mg/dL (8.5-10.1)
[2022-05-26 10:27] LABS: MAGNESIUM 2.2 mg/dL (1.8-2.4)
[2022-05-26 10:29] LABS: CREATININE 1.2 mg/dL (0.55-1.3)
[2022-05-26 10:30] LABS: BILIRUBIN,DIRECT 0.2 mg/dL (0.0-0.2)
[2022-05-26] MEDS ORDERED: NIVOLUMAB 240 MG in SODIUM CHLORIDE 100 ML IVPB ONE (10:30)
[2022-05-26 10:31] LABS: BILIRUBIN,TOTAL 0.7 mg/dL (0.2-1); TOT PROT 6.9 g/dl (6.4-8.2)
[2022-05-26 10:32] LABS: ANISOCYTOSIS 1+; MACROCYTOSIS 1+
[2022-05-26 10:34] LABS: PLATELET ESTIMATE ADEQUATE
[2022-05-26] MEDS ORDERED: WATER IVPB ONE (11:00)
[2022-05-26] MEDS ORDERED: DEXTROSE 5% IVPB ONE (11:00)
[2022-05-26] MEDS ORDERED: LEUCOVORIN IVPB ONE (11:00)
[2022-05-26] MEDS ORDERED: FLUOROURACIL CP ONE (13:00)
[2022-05-26] MEDS ORDERED: SODIUM CHLORIDE CP ONE (13:00)
[2022-05-26 14:32] VITALS: PULSE 63; RESP 18; TEMP 98.2
[2022-05-26] MEDS ORDERED: PORTA CATH FLUSH 10 ML IVPUSH PRN (14:45)
[2022-05-26 15:22] VITALS: BP 135/86
== END 2022-05-26 15:23 | disposition home or self-care (01) ==
LOC: JONCCHEMO 07:12
PROVIDERS: ATTEND Internal Medicine Hematology & Oncology
DX: Z51.11 Encounter for antineoplastic chemotherapy (principal); C16.2 Malignant neoplasm of body of stomach
CPT/HCPCS: 36415; 80048; 80076; 82150; 82533; 83690; 83735; 84153; 84439; 84443; 85025; 85610; 85730; 96366; 96367; 96375; 96413; 96415; 96417; G0498; J1453; J2469; J9263; J9299

== ENCOUNTER 2022-06-09 06:59 | Day surgery (SDC) | payer OTHER ==
[2022-06-09] MEDS ORDERED: SODIUM CHLORIDE 250 ML IV ONE (09:00)
[2022-06-09] MEDS ORDERED: DEXAMETHASONE SODIUM PHOSPHATE 8 MG, DIPHENHYDRAMINE 25 MG in SODIUM CHLORIDE 100 ML IVPB ONE (09:30)
[2022-06-09] MEDS ORDERED: PALONOSETRON HCL 0.25 MG/5 ML VIAL IVPUSH ONE (09:30)
[2022-06-09] MEDS ORDERED: FOSAPREPITANT DIMEGLUMINE 150 MG in SODIUM CHLORIDE 145 ML IVPB ONE (09:30)
[2022-06-09] MEDS ORDERED: NIVOLUMAB 240 MG in SODIUM CHLORIDE 100 ML IVPB ONE (10:00)
[2022-06-09] MEDS ORDERED: LEUCOVORIN IVPB ONE (10:30)
[2022-06-09] MEDS ORDERED: WATER IVPB ONE (10:30)
[2022-06-09] MEDS ORDERED: DEXTROSE 5% IVPB ONE (10:30)
[2022-06-09 10:53] LABS: HEMATOCRIT 35.4 % (35.4-49); HEMOGLOBIN 11.7 GM/dL (11.7-16.9); MCH 33.3 pg (25.7-33.7); MCHC 33.1 g/dl (32.0-35.9); MEAN CELL VOLUME 100.5 fl (80-96); MEAN PLT VOLUME 8.8 fl (7.5-11.1); PLATELET COUNT 134 10^3/uL (134-434); RBC 3.52 M/mm3 (4.00-5.60); RDW 16.5 % (11.9-15.9); WHITE BLOOD COUNT 3.8 K/mm3 (4.0-10.0)
[2022-06-09 11:18] LABS: ALBUMIN 3.4 g/dl (3.4-5.0)
[2022-06-09 11:19] LABS: BLOOD UREA NITROGEN 14.2 mg/dL (7-18); MAGNESIUM 2.2 mg/dL (1.8-2.4)
[2022-06-09 11:21] LABS: BILIRUBIN,DIRECT 0.2 mg/dL (0.0-0.2); CREATININE 1.3 mg/dL (0.55-1.3)
[2022-06-09 11:23] LABS: BILIRUBIN,TOTAL 0.7 mg/dL (0.2-1); TOT PROT 6.8 g/dl (6.4-8.2)
[2022-06-09 11:40] LABS: ANISOCYTOSIS 1+; MACROCYTOSIS 0; OVALOCYTE 1+; PLATELET ESTIMATE NORMAL
[2022-06-09] MEDS ORDERED: TBO-FILGRASTIM 300 MCG/0.5 ML DISP.SYRINGE SQ ONE (12:00)
[2022-06-09] MEDS ORDERED: SODIUM CHLORIDE CP ONE (12:30)
[2022-06-09] MEDS ORDERED: FLUOROURACIL CP ONE (12:30)
[2022-06-09 15:56] VITALS: BP 129/83; PULSE 74; RESP 18; TEMP 98.1
[2022-06-09] MEDS ORDERED: PORTA CATH FLUSH 10 ML IVPUSH PRN (15:56)
[2022-06-10] MEDS ORDERED: TBO-FILGRASTIM 300 MCG/0.5 ML DISP.SYRINGE SQ SCH (10:00)
== END 2022-06-09 12:30 | disposition home or self-care (01) ==
LOC: JONCCHEMO 06:59
PROVIDERS: ATTEND Internal Medicine Hematology & Oncology
PROC: 3E013GC Introduction of Other Therapeutic Substance into Subcutaneous Tissue, Percutaneous Approach (ICD-10-PCS; principal; 2022-06-09)
DX: C16.2 Malignant neoplasm of body of stomach (principal); Z76.89 Persons encountering health services in other specified circumstances
CPT/HCPCS: 36415; 80048; 80076; 82150; 82533; 83690; 83735; 84439; 84443; 85025; 96372; J1447

== ENCOUNTER 2022-06-10 07:54 | Day surgery (SDC) | payer OTHER ==
[2022-06-10] MEDS ORDERED: TBO-FILGRASTIM 300 MCG/0.5 ML DISP.SYRINGE SQ ONE (10:00)
[2022-06-10 17:06] VITALS: BP 105/75; PULSE 72; RESP 18; TEMP 98.4
== END 2022-06-10 13:25 | disposition home or self-care (01) ==
LOC: JONCCHEMO 07:54
PROVIDERS: ATTEND Internal Medicine Hematology & Oncology
PROC: 3E013GC Introduction of Other Therapeutic Substance into Subcutaneous Tissue, Percutaneous Approach (ICD-10-PCS; principal; 2022-06-10)
DX: C16.2 Malignant neoplasm of body of stomach (principal); Z76.89 Persons encountering health services in other specified circumstances
CPT/HCPCS: 96372; J1447

== ENCOUNTER 2022-06-16 09:03 | Day surgery (SDC) | payer OTHER ==
[2022-06-16] MEDS ORDERED: SODIUM CHLORIDE 250 ML IV ONE (09:15)
[2022-06-16 09:28] LABS: HEMATOCRIT 36.3 % (35.4-49); HEMOGLOBIN 12.2 GM/dL (11.7-16.9); MCH 33.9 pg (25.7-33.7); MCHC 33.7 g/dl (32.0-35.9); MEAN CELL VOLUME 100.4 fl (80-96); MEAN PLT VOLUME 8.6 fl (7.5-11.1); PLATELET COUNT 144 10^3/uL (134-434); RBC 3.61 M/mm3 (4.00-5.60); RDW 15.7 % (11.9-15.9)
[2022-06-16] MEDS ORDERED: FOSAPREPITANT DIMEGLUMINE 150 MG in SODIUM CHLORIDE 145 ML IVPB ONE (09:30)
[2022-06-16] MEDS ORDERED: DEXAMETHASONE SODIUM PHOSPHATE 8 MG, DIPHENHYDRAMINE 25 MG in SODIUM CHLORIDE 100 ML IVPB ONE (09:30)
[2022-06-16] MEDS ORDERED: PALONOSETRON HCL 0.25 MG/5 ML VIAL IVPUSH ONE (09:30)
[2022-06-16 09:52] LABS: CALCIUM 9.5 mg/dL (8.5-10.1)
[2022-06-16 09:53] LABS: ALBUMIN 3.5 g/dl (3.4-5.0); BLOOD UREA NITROGEN 15.2 mg/dL (7-18); MAGNESIUM 2.4 mg/dL (1.8-2.4)
[2022-06-16 09:55] LABS: BILIRUBIN,DIRECT 0.2 mg/dL (0.0-0.2)
[2022-06-16 09:56] LABS: CREATININE 1.6 mg/dL (0.55-1.3)
[2022-06-16 09:57] LABS: BILIRUBIN,TOTAL 0.6 mg/dL (0.2-1)
[2022-06-16] MEDS ORDERED: NIVOLUMAB 240 MG in SODIUM CHLORIDE 100 ML IVPB ONE (10:00)
[2022-06-16 10:16] LABS: ANISOCYTOSIS 0; MACROCYTOSIS 1+; OVALOCYTE 1+
[2022-06-16] MEDS ORDERED: WATER IVPB ONE (10:30)
[2022-06-16] MEDS ORDERED: DEXTROSE 5% IVPB ONE (10:30)
[2022-06-16] MEDS ORDERED: LEUCOVORIN IVPB ONE (10:30)
[2022-06-16] MEDS ORDERED: FLUOROURACIL CP ONE (12:30)
[2022-06-16] MEDS ORDERED: SODIUM CHLORIDE CP ONE (12:30)
[2022-06-16 14:34] VITALS: RESP 18; TEMP 98.8
[2022-06-16] MEDS ORDERED: PORTA CATH FLUSH 10 ML IVPUSH PRN (14:34)
[2022-06-16 14:51] VITALS: BP 134/82; PULSE 90
== END 2022-06-16 15:21 | disposition home or self-care (01) ==
LOC: JONCCHEMO 09:03
PROVIDERS: ATTEND Internal Medicine Hematology & Oncology
DX: Z51.11 Encounter for antineoplastic chemotherapy (principal); C16.2 Malignant neoplasm of body of stomach
CPT/HCPCS: 36415; 80048; 80076; 83735; 85025; 96366; 96367; 96375; 96413; 96415; 96417; G0498; J1453; J2469; J9263; J9299

== ENCOUNTER 2022-06-18 07:14 | Day surgery (SDC) | payer OTHER ==
[2022-06-18] MEDS ORDERED: DEXTROSE 5%-0.45% SALINE - 500 ML IV ONE (10:00)
[2022-06-18] MEDS ORDERED: PORTA CATH FLUSH 10 ML IVPUSH PRN (15:50)
[2022-06-18 15:51] VITALS: BP 97/60; PULSE 66; RESP 18; TEMP 98.5
== END 2022-06-18 14:30 | disposition home or self-care (01) ==
LOC: JONCCHEMO 07:14
PROVIDERS: ATTEND Internal Medicine Hematology & Oncology
PROC: 3E0437Z Introduction of Electrolytic and Water Balance Substance into Central Vein, Percutaneous Approach (ICD-10-PCS; principal; 2022-06-18)
DX: C16.2 Malignant neoplasm of body of stomach (principal); Z76.89 Persons encountering health services in other specified circumstances
CPT/HCPCS: 96360; 96361

== ENCOUNTER 2022-06-30 09:43 | Day surgery (SDC) | payer OTHER ==
[~2022-06-30 09:43] MED LIST changes: -FLUOROURACIL 4,200 MG in SODIUM CHLORIDE 8 ML IV ONE; -FLUOROURACIL 500 MG/10 ML VIAL IVPUSH ONE; -FOSAPREPITANT DIMEGLUMINE 150 MG in SODIUM CHLORIDE 145 ML IVPB ONE; -LEUCOVORIN INJECTION - 700 MG in DEXTROSE 5%-WATER - 250 ML IVPB ONE; -NIVOLUMAB 240 MG in SODIUM CHLORIDE 100 ML IVPB ONE; -PALONOSETRON HCL 0.25 MG/5 ML VIAL IVPUSH ONE
[2022-06-30] MEDS ORDERED: FOSAPREPITANT DIMEGLUMINE 150 MG in SODIUM CHLORIDE 145 ML IVPB ONE (10:00)
[2022-06-30] MEDS ORDERED: DEXAMETHASONE SODIUM PHOSPHATE 8 MG, DIPHENHYDRAMINE 25 MG in SODIUM CHLORIDE 100 ML IVPB ONE (10:00)
[2022-06-30] MEDS ORDERED: PALONOSETRON HCL 0.25 MG/5 ML VIAL IVPUSH ONE (10:00)
[2022-06-30 10:20] LABS: BASO % 0.6 % (0-2.0); EOS % 2.1 % (0-4.5); HEMATOCRIT 31.7 % (35.4-49); HEMOGLOBIN 10.3 GM/dL (11.7-16.9); LYMPH % 45.3 % (8-40); MCH 32.8 pg (25.7-33.7); MCHC 32.4 g/dl (32.0-35.9); MEAN CELL VOLUME 101.2 fl (80-96); MEAN PLT VOLUME 8.3 fl (7.5-11.1); MONO % 15.8 % (3.8-10.2); NEUT % 36.2 % (42.8-82.8); PLATELET COUNT 118 10^3/uL (134-434); RBC 3.13 M/mm3 (4.00-5.60); RDW 15.1 % (11.9-15.9); WHITE BLOOD COUNT 4.8 K/mm3 (4.0-10.0)
[2022-06-30] MEDS ORDERED: NIVOLUMAB 240 MG in SODIUM CHLORIDE 100 ML IVPB ONE (10:30)
[2022-06-30 10:47] LABS: BLOOD UREA NITROGEN 11.9 mg/dL (7-18); CALCIUM 9.2 mg/dL (8.5-10.1)
[2022-06-30 10:48] LABS: ALBUMIN 3.2 g/dl (3.4-5.0); MAGNESIUM 2.2 mg/dL (1.8-2.4)
[2022-06-30 10:50] LABS: BILIRUBIN,DIRECT 0.1 mg/dL (0.0-0.2); CREATININE 1.1 mg/dL (0.55-1.3)
[2022-06-30 10:52] LABS: BILIRUBIN,TOTAL 0.5 mg/dL (0.2-1); TOT PROT 6.6 g/dl (6.4-8.2)
[2022-06-30] MEDS ORDERED: LEUCOVORIN INJECTION - 600 MG in DEXTROSE 5%-WATER - 250 ML IVPB ONE (11:00)
[2022-06-30] MEDS ORDERED: SODIUM CHLORIDE CP ONE (13:00)
[2022-06-30] MEDS ORDERED: FLUOROURACIL CP ONE (13:00)
[2022-06-30 17:11] VITALS: RESP 18; TEMP 98
[2022-06-30 17:25] VITALS: BP 131/71; PULSE 59
[2022-06-30] MEDS ORDERED: PORTA CATH FLUSH 10 ML IVPUSH PRN (17:25)
== END 2022-06-30 17:00 | disposition home or self-care (01) ==
LOC: JONCCHEMO 09:43
PROVIDERS: ATTEND Internal Medicine Hematology & Oncology
DX: Z51.11 Encounter for antineoplastic chemotherapy (principal); C16.2 Malignant neoplasm of body of stomach
CPT/HCPCS: 36415; 80048; 80076; 82150; 82533; 83690; 83735; 84439; 84443; 85025; 96366; 96367; 96375; 96413; 96415; 96417; G0498; J1453; J2469; J9263; J9299

== ENCOUNTER 2022-07-02 15:25 | Day surgery (SDC) | payer OTHER ==
[2022-07-02] MEDS ORDERED: PORTA CATH FLUSH 10 ML IVPUSH PRN (17:12)
[2022-07-02 17:13] VITALS: BP 103/73; PULSE 89; RESP 20; TEMP 98.5
== END 2022-07-02 16:00 | disposition home or self-care (01) ==
LOC: JONCCHEMO 15:25 → J7W 15:27 → JONCCHEMO 16:00
PROVIDERS: ATTEND Internal Medicine Hematology & Oncology
DX: Z53.8 Procedure and treatment not carried out for other reasons (principal)

== ENCOUNTER 2022-07-21 09:57 | Day surgery (SDC) | payer OTHER ==
[2022-07-21] MEDS ORDERED: PALONOSETRON HCL 0.25 MG/5 ML VIAL IVPUSH ONE (10:00)
[2022-07-21] MEDS ORDERED: FOSAPREPITANT DIMEGLUMINE 150 MG in SODIUM CHLORIDE 145 ML IVPB ONE (10:00)
[2022-07-21] MEDS ORDERED: DEXAMETHASONE SODIUM PHOSPHATE 8 MG, DIPHENHYDRAMINE 25 MG in SODIUM CHLORIDE 100 ML IVPB ONE (10:00)
[2022-07-21] MEDS ORDERED: SODIUM CHLORIDE 250 ML IV ONE (10:00)
[2022-07-21 10:24] LABS: HEMATOCRIT 33.4 % (35.4-49); MCH 33.3 pg (25.7-33.7); MEAN CELL VOLUME 100.9 fl (80-96); MEAN PLT VOLUME 7.6 fl (7.5-11.1); PLATELET COUNT 216 10^3/uL (134-434); RBC 3.32 M/mm3 (4.00-5.60); RDW 15.1 % (11.9-15.9); WHITE BLOOD COUNT 4.5 K/mm3 (4.0-10.0)
[2022-07-21] MEDS ORDERED: NIVOLUMAB 240 MG in SODIUM CHLORIDE 100 ML IVPB ONE (10:30)
[2022-07-21 10:48] LABS: ALBUMIN 3.4 g/dl (3.4-5.0); BLOOD UREA NITROGEN 11.8 mg/dL (7-18); MAGNESIUM 2.1 mg/dL (1.8-2.4)
[2022-07-21 10:51] LABS: BILIRUBIN,DIRECT 0.1 mg/dL (0.0-0.2)
[2022-07-21 10:52] LABS: BILIRUBIN,TOTAL 0.4 mg/dL (0.2-1); TOT PROT 6.6 g/dl (6.4-8.2)
[2022-07-21 10:58] LABS: ANISOCYTOSIS 1+; MACROCYTOSIS 1+
[2022-07-21] MEDS ORDERED: DEXTROSE 5% IVPB ONE (11:00)
[2022-07-21] MEDS ORDERED: WATER IVPB ONE (11:00)
[2022-07-21] MEDS ORDERED: LEUCOVORIN IVPB ONE (11:00)
[2022-07-21] MEDS ORDERED: PORTA CATH FLUSH 10 ML IVPUSH PRN (11:41)
[2022-07-21 11:42] VITALS: BP 135/76; PULSE 69; RESP 18
[2022-07-21] MEDS ORDERED: TBO-FILGRASTIM 300 MCG/0.5 ML DISP.SYRINGE SQ ONE (12:00)
[2022-07-21] MEDS ORDERED: TBO-FILGRASTIM 300 MCG/0.5 ML DISP.SYRINGE SQ SCH (12:00)
[2022-07-21] MEDS ORDERED: SODIUM CHLORIDE CP ONE (13:00)
[2022-07-21] MEDS ORDERED: FLUOROURACIL CP ONE (13:00)
[2022-07-21 15:12] VITALS: TEMP 97.7
[2022-07-22] MEDS ORDERED: TBO-FILGRASTIM 300 MCG/0.5 ML DISP.SYRINGE SQ SCH (10:00)
== END 2022-07-21 12:25 | disposition home or self-care (01) ==
LOC: JONCCHEMO 09:57
PROVIDERS: ATTEND Internal Medicine Hematology & Oncology
PROC: 3E013GC Introduction of Other Therapeutic Substance into Subcutaneous Tissue, Percutaneous Approach (ICD-10-PCS; principal; 2022-07-21)
PROC: 3E0437Z Introduction of Electrolytic and Water Balance Substance into Central Vein, Percutaneous Approach (ICD-10-PCS; 2022-07-21)
DX: C16.2 Malignant neoplasm of body of stomach (principal); Z76.89 Persons encountering health services in other specified circumstances
CPT/HCPCS: 36415; 80048; 80076; 82150; 82378; 82533; 83735; 84439; 84443; 85025; 96360; 96372; J1447

== ENCOUNTER 2022-07-22 12:27 | Day surgery (SDC) | payer OTHER ==
[2022-07-22] MEDS ORDERED: TBO-FILGRASTIM 300 MCG/0.5 ML DISP.SYRINGE SQ ONE (13:00)
[2022-07-22 18:13] VITALS: BP 115/74; PULSE 76; RESP 18; TEMP 98
== END 2022-07-22 12:55 | disposition home or self-care (01) ==
LOC: JONCCHEMO 12:27
PROVIDERS: ATTEND Internal Medicine Hematology & Oncology
PROC: 3E013GC Introduction of Other Therapeutic Substance into Subcutaneous Tissue, Percutaneous Approach (ICD-10-PCS; principal; 2022-07-22)
DX: C16.2 Malignant neoplasm of body of stomach (principal); Z76.89 Persons encountering health services in other specified circumstances
CPT/HCPCS: 96372; J1447

== ENCOUNTER 2022-07-28 09:45 | Day surgery (SDC) | payer OTHER ==
[~2022-07-28 09:45] MED LIST changes: +DEXAMETHASONE SODIUM PHOSPHATE 8 MG, DIPHENHYDRAMINE 25 MG in SODIUM CHLORIDE 100 ML IVPB ONE; +FOSAPREPITANT DIMEGLUMINE 150 MG in SODIUM CHLORIDE 145 ML IVPB ONE; +PALONOSETRON HCL 0.25 MG/5 ML VIAL IVPUSH ONE
[2022-07-28] MEDS ORDERED: NIVOLUMAB 240 MG in SODIUM CHLORIDE 100 ML IVPB ONE (10:00)
[2022-07-28 10:06] LABS: HEMATOCRIT 32.5 % (35.4-49); HEMOGLOBIN 10.9 GM/dL (11.7-16.9); MCH 33.8 pg (25.7-33.7); MCHC 33.5 g/dl (32.0-35.9); MEAN CELL VOLUME 100.8 fl (80-96); MEAN PLT VOLUME 8.1 fl (7.5-11.1); PLATELET COUNT 156 10^3/uL (134-434); RBC 3.22 M/mm3 (4.00-5.60); RDW 15.2 % (11.9-15.9); WHITE BLOOD COUNT 10.6 K/mm3 (4.0-10.0)
[2022-07-28 10:27] LABS: BLOOD UREA NITROGEN 14.3 mg/dL (7-18); CALCIUM 8.9 mg/dL (8.5-10.1); MAGNESIUM 2.3 mg/dL (1.8-2.4)
[2022-07-28 10:28] LABS: ALBUMIN 3.2 g/dl (3.4-5.0)
[2022-07-28 10:30] LABS: BILIRUBIN,DIRECT 0.1 mg/dL (0.0-0.2)
[2022-07-28] MEDS ORDERED: DEXTROSE 5% IVPB ONE (10:30)
[2022-07-28] MEDS ORDERED: LEUCOVORIN IVPB ONE (10:30)
[2022-07-28] MEDS ORDERED: WATER IVPB ONE (10:30)
[2022-07-28 10:32] LABS: BILIRUBIN,TOTAL 0.4 mg/dL (0.2-1); TOT PROT 6.5 g/dl (6.4-8.2)
[2022-07-28 10:52] LABS: ANISOCYTOSIS 1+; MACROCYTOSIS 1+
[2022-07-28] MEDS ORDERED: FLUOROURACIL CP ONE (12:30)
[2022-07-28] MEDS ORDERED: SODIUM CHLORIDE CP ONE (12:30)
[2022-07-28 17:25] VITALS: RESP 18; TEMP 98.2
[2022-07-28 17:38] VITALS: BP 135/77; PULSE 56
[2022-07-28] MEDS ORDERED: PORTA CATH FLUSH 10 ML IVPUSH PRN (17:39)
== END 2022-07-28 16:15 | disposition home or self-care (01) ==
LOC: JONCCHEMO 09:45
PROVIDERS: ATTEND Internal Medicine Hematology & Oncology
DX: Z51.11 Encounter for antineoplastic chemotherapy (principal); C16.2 Malignant neoplasm of body of stomach
CPT/HCPCS: 36415; 80048; 80076; 83735; 85025; 96366; 96367; 96375; 96413; 96415; 96417; G0498; J1453; J2469; J9263; J9299

== ENCOUNTER 2022-07-30 14:35 | Day surgery (SDC) | payer OTHER ==
[2022-07-30 16:36] VITALS: BP 133/81; PULSE 70; RESP 18; TEMP 98.3
[2022-07-30] MEDS ORDERED: PORTA CATH FLUSH 10 ML IVPUSH PRN (16:39)
== END 2022-07-30 14:50 | disposition home or self-care (01) ==
LOC: JONCCHEMO 14:35
PROVIDERS: ATTEND Internal Medicine Hematology & Oncology
DX: Z53.8 Procedure and treatment not carried out for other reasons (principal)

== ENCOUNTER 2022-08-11 09:54 | Day surgery (SDC) | payer OTHER ==
[~2022-08-11 09:54] MED LIST changes: +ATROPINE SO4 0.4 MG/1 ML VIAL IVPUSH ONE; +DEXAMETHASONE SODIUM PHOSPHATE 10 MG in SODIUM CHLORIDE 50 ML IVPB ONE; -DEXAMETHASONE SODIUM PHOSPHATE 8 MG, DIPHENHYDRAMINE 25 MG in SODIUM CHLORIDE 100 ML IVPB ONE
[2022-08-11] MEDS ORDERED: NIVOLUMAB 240 MG in SODIUM CHLORIDE 100 ML IVPB ONE (10:00)
[2022-08-11 10:30] LABS: BASO % 0.9 % (0-2.0); EOS % 10.5 % (0-4.5); HEMATOCRIT 34.2 % (35.4-49); HEMOGLOBIN 11.3 GM/dL (11.7-16.9); LYMPH % 32.4 % (8-40); MONO % 11.9 % (3.8-10.2); NEUT % 44.3 % (42.8-82.8); PLATELET COUNT 178 10^3/uL (134-434); RBC 3.42 M/mm3 (4.00-5.60); RDW 14.3 % (11.9-15.9); WHITE BLOOD COUNT 5.6 K/mm3 (4.0-10.0)
[2022-08-11] MEDS ORDERED: LEUCOVORIN IVPB ONE (10:30)
[2022-08-11] MEDS ORDERED: IRINOTECAN HCL IVPB ONE (10:30)
[2022-08-11] MEDS ORDERED: DEXTROSE 5% IVPB ONE ×2 (10:30)
[2022-08-11] MEDS ORDERED: WATER IVPB ONE ×2 (10:30)
[2022-08-11 11:10] LABS: CALCIUM 9.1 mg/dL (8.5-10.1)
[2022-08-11 11:11] LABS: ALBUMIN 3.5 g/dl (3.4-5.0); BLOOD UREA NITROGEN 9.9 mg/dL (7-18); MAGNESIUM 2.1 mg/dL (1.8-2.4)
[2022-08-11 11:15] LABS: BILIRUBIN,DIRECT 0.2 mg/dL (0.0-0.2); TOT PROT 7.2 g/dl (6.4-8.2)
[2022-08-11 11:16] LABS: BILIRUBIN,TOTAL 0.5 mg/dL (0.2-1)
[2022-08-11] MEDS ORDERED: FLUOROURACIL CP ONE (12:30)
[2022-08-11] MEDS ORDERED: SODIUM CHLORIDE CP ONE (12:30)
[2022-08-11 15:48] LABS: EPI CELLS 2 /uL (0-25.1); HYALINE CASTS 0 /uL (0-3.1); URINE APPEARANCE CLEAR; URINE BACTERIA >9,000 /uL (0-1359); URINE BILIRUBIN NEGATIVE (NEGATIVE); URINE COLOR YELLOW; URINE GLUCOSE (UA) TRACE (NEGATIVE); URINE KETONE NEGATIVE (NEGATIVE); URINE LEUK ESTERASE TRACE (NEGATIVE); URINE NITRITE NEGATIVE (NEGATIVE); URINE PROTEIN NEGATIVE (NEGATIVE); URINE RBC 3 /uL (0-23.9); URINE UROBILINOGEN 0.2 mg/dL (0.2-1.0); URINE WBC 23 /uL (0-25.8)
[2022-08-11 16:24] VITALS: RESP 18; TEMP 97.6
[2022-08-11 16:36] VITALS: BP 153/95; PULSE 84
[2022-08-11] MEDS ORDERED: PORTA CATH FLUSH 10 ML IVPUSH PRN (16:36)
== END 2022-08-11 16:30 | disposition home or self-care (01) ==
LOC: JONCCHEMO 09:54
PROVIDERS: ATTEND Internal Medicine Hematology & Oncology
DX: Z51.11 Encounter for antineoplastic chemotherapy (principal); C16.2 Malignant neoplasm of body of stomach
CPT/HCPCS: 36415; 80048; 80076; 81003; 83036; 83735; 84153; 84156; 85025; 87086; 87186; 96366; 96367; 96375; 96413; 96417; G0498; J1453; J2469; J9206; J9299

== ENCOUNTER 2022-08-13 14:32 | Day surgery (SDC) | payer OTHER ==
[2022-08-13 18:45] VITALS: BP 111/73; PULSE 78; RESP 18; TEMP 98.3
[2022-08-13] MEDS ORDERED: PORTA CATH FLUSH 10 ML IVPUSH PRN (18:45)
== END 2022-08-13 14:50 | disposition home or self-care (01) ==
LOC: JONCCHEMO 14:32
PROVIDERS: ATTEND Internal Medicine Hematology & Oncology
DX: Z53.8 Procedure and treatment not carried out for other reasons (principal)

== ENCOUNTER 2022-09-01 09:52 | Day surgery (SDC) | payer OTHER ==
[2022-09-01] MEDS ORDERED: ATROPINE SO4 0.4 MG/1 ML VIAL SQ ONE (10:00)
[2022-09-01] MEDS ORDERED: PALONOSETRON HCL 0.25 MG/5 ML VIAL IVPUSH ONE (10:00)
[2022-09-01] MEDS ORDERED: DEXAMETHASONE SODIUM PHOSPHATE 8 MG in SODIUM CHLORIDE 50 ML IVPB ONE (10:00)
[2022-09-01] MEDS ORDERED: SODIUM CHLORIDE 250 ML IV ONE (10:00)
[2022-09-01] MEDS ORDERED: FOSAPREPITANT DIMEGLUMINE 150 MG in SODIUM CHLORIDE 145 ML IVPB ONE (10:00)
[2022-09-01] MEDS ORDERED: NIVOLUMAB 240 MG in SODIUM CHLORIDE 100 ML IVPB ONE (10:30)
[2022-09-01 10:41] LABS: BASO % 0.9 % (0-2.0); EOS % 7.7 % (0-4.5); HEMATOCRIT 33.3 % (35.4-49); HEMOGLOBIN 11.2 GM/dL (11.7-16.9); LYMPH % 39.9 % (8-40); MCHC 33.5 g/dl (32.0-35.9); MEAN CELL VOLUME 98.5 fl (80-96); MEAN PLT VOLUME 7.8 fl (7.5-11.1); MONO % 19.3 % (3.8-10.2); NEUT % 32.2 % (42.8-82.8); PLATELET COUNT 199 10^3/uL (134-434); RBC 3.38 M/mm3 (4.00-5.60); RDW 14.3 % (11.9-15.9); WHITE BLOOD COUNT 4.1 K/mm3 (4.0-10.0)
[2022-09-01] MEDS ORDERED: DEXTROSE 5% IVPB ONE ×2 (11:00→11:30)
[2022-09-01] MEDS ORDERED: WATER IVPB ONE ×2 (11:00→11:30)
[2022-09-01] MEDS ORDERED: TBO-FILGRASTIM 300 MCG/0.5 ML DISP.SYRINGE SQ ONE (11:00)
[2022-09-01] MEDS ORDERED: LEUCOVORIN IVPB ONE (11:00)
[2022-09-01 11:05] LABS: ALBUMIN 3.2 g/dl (3.4-5.0); BLOOD UREA NITROGEN 11.8 mg/dL (7-18); MAGNESIUM 2.2 mg/dL (1.8-2.4)
[2022-09-01 11:08] LABS: BILIRUBIN,DIRECT 0.1 mg/dL (0.0-0.2)
[2022-09-01 11:10] LABS: BILIRUBIN,TOTAL 0.4 mg/dL (0.2-1)
[2022-09-01 11:11] LABS: TOT PROT 6.6 g/dl (6.4-8.2)
[2022-09-01] MEDS ORDERED: IRINOTECAN HCL IVPB ONE (11:30)
[2022-09-01 11:38] LABS: PH,URINE 6.5 (5.0-8.0); URINE APPEARANCE CLEAR; URINE BILIRUBIN NEGATIVE (NEGATIVE); URINE COLOR YELLOW; URINE GLUCOSE (UA) NEGATIVE (NEGATIVE); URINE KETONE NEGATIVE (NEGATIVE); URINE LEUK ESTERASE NEGATIVE (NEGATIVE); URINE NITRITE NEGATIVE (NEGATIVE); URINE PROTEIN NEGATIVE (NEGATIVE); URINE UROBILINOGEN 0.2 mg/dL (0.2-1.0)
[2022-09-01] MEDS ORDERED: FLUOROURACIL CP ONE (13:00)
[2022-09-01] MEDS ORDERED: SODIUM CHLORIDE CP ONE (13:00)
[2022-09-01 15:47] VITALS: BP 122/71; PULSE 75; RESP 20; TEMP 98
[2022-09-01] MEDS ORDERED: PORTA CATH FLUSH 10 ML IVPUSH PRN (15:47)
== END 2022-09-01 12:00 | disposition home or self-care (01) ==
LOC: JONCCHEMO 09:52
PROVIDERS: ATTEND Internal Medicine Hematology & Oncology
PROC: 3E013GC Introduction of Other Therapeutic Substance into Subcutaneous Tissue, Percutaneous Approach (ICD-10-PCS; principal; 2022-09-01)
DX: C16.2 Malignant neoplasm of body of stomach (principal); Z76.89 Persons encountering health services in other specified circumstances
CPT/HCPCS: 36415; 80048; 80076; 81003; 83735; 84156; 85025; 87086; 96372; J1447

== ENCOUNTER 2022-09-02 11:36 | Day surgery (SDC) | payer OTHER ==
[~2022-09-02 11:36] MED LIST changes: -ATROPINE SO4 0.4 MG/1 ML VIAL IVPUSH ONE; -DEXAMETHASONE SODIUM PHOSPHATE 10 MG in SODIUM CHLORIDE 50 ML IVPB ONE; -FOSAPREPITANT DIMEGLUMINE 150 MG in SODIUM CHLORIDE 145 ML IVPB ONE; -PALONOSETRON HCL 0.25 MG/5 ML VIAL IVPUSH ONE; -SODIUM CHLORIDE 250 ML IV ONE; +TBO-FILGRASTIM 300 MCG/0.5 ML DISP.SYRINGE SQ ONE
[2022-09-02 13:26] VITALS: BP 109/68; PULSE 78; RESP 20; TEMP 99.1
== END 2022-09-02 11:50 | disposition home or self-care (01) ==
LOC: JONCCHEMO 11:36
PROVIDERS: ATTEND Internal Medicine Hematology & Oncology
PROC: 3E013GC Introduction of Other Therapeutic Substance into Subcutaneous Tissue, Percutaneous Approach (ICD-10-PCS; principal; 2022-09-02)
DX: Z76.89 Persons encountering health services in other specified circumstances (principal); C16.2 Malignant neoplasm of body of stomach
CPT/HCPCS: 96372; J1447

== ENCOUNTER 2022-09-08 10:20 | Day surgery (SDC) | payer OTHER ==
[~2022-09-08 10:20] MED LIST changes: +ATROPINE SO4 0.4 MG/1 ML VIAL SQ ONE; +DEXAMETHASONE SODIUM PHOSPHATE 8 MG in SODIUM CHLORIDE 50 ML IVPB ONE; +FOSAPREPITANT DIMEGLUMINE 150 MG in SODIUM CHLORIDE 145 ML IVPB ONE; +PALONOSETRON HCL 0.25 MG/5 ML VIAL IVPUSH ONE; +SODIUM CHLORIDE 250 ML IV ONE; -TBO-FILGRASTIM 300 MCG/0.5 ML DISP.SYRINGE SQ ONE
[2022-09-08] MEDS ORDERED: NIVOLUMAB 240 MG in SODIUM CHLORIDE 100 ML IVPB ONE (10:30)
[2022-09-08] MEDS ORDERED: WATER IVPB ONE ×2 (11:00→11:30)
[2022-09-08] MEDS ORDERED: LEUCOVORIN IVPB ONE (11:00)
[2022-09-08] MEDS ORDERED: DEXTROSE 5% IVPB ONE ×2 (11:00→11:30)
[2022-09-08] MEDS ORDERED: IRINOTECAN HCL IVPB ONE (11:30)
[2022-09-08 11:58] LABS: HEMATOCRIT 37.1 % (35.4-49); HEMOGLOBIN 11.9 GM/dL (11.7-16.9); MCH 32.1 pg (25.7-33.7); MCHC 32.1 g/dl (32.0-35.9); MEAN CELL VOLUME 100.1 fl (80-96); MEAN PLT VOLUME 9.1 fl (7.5-11.1); PLATELET COUNT 173 10^3/uL (134-434); RBC 3.71 M/mm3 (4.00-5.60); RDW 14.9 % (11.9-15.9); WHITE BLOOD COUNT 10.8 K/mm3 (4.0-10.0)
[2022-09-08 12:16] LABS: ALBUMIN 3.4 g/dl (3.4-5.0); BLOOD UREA NITROGEN 13.3 mg/dL (7-18); CALCIUM 9.3 mg/dL (8.5-10.1); MAGNESIUM 2.2 mg/dL (1.8-2.4)
[2022-09-08 12:19] LABS: CREATININE 1.1 mg/dL (0.55-1.3)
[2022-09-08 12:21] LABS: BILIRUBIN,TOTAL 0.6 mg/dL (0.2-1)
[2022-09-08] MEDS ORDERED: SODIUM CHLORIDE CP ONE (13:00)
[2022-09-08] MEDS ORDERED: FLUOROURACIL CP ONE (13:00)
[2022-09-08 13:30] LABS: ANISOCYTOSIS 0; HELMET CELLS 0; HOWELL-JOLLY BODIES 0; MACROCYTOSIS 0; OVALOCYTE 0; ROULEAU 0; SICKELED CELLS 0; TARGET CELLS 0; TEAR DROP CELLS 0; TOXIC GRANULATION 0
[2022-09-08] MEDS ORDERED: PORTA CATH FLUSH 10 ML IVPUSH PRN (18:13)
[2022-09-08 18:14] VITALS: BP 107/73; PULSE 71; RESP 20; TEMP 98.2
== END 2022-09-08 18:16 | disposition home or self-care (01) ==
LOC: JONCCHEMO 10:20
PROVIDERS: ATTEND Internal Medicine Hematology & Oncology
DX: Z51.11 Encounter for antineoplastic chemotherapy (principal); C16.2 Malignant neoplasm of body of stomach
CPT/HCPCS: 36415; 80053; 83735; 85025; 96366; 96367; 96375; 96413; 96415; 96417; G0498; J1453; J2469; J9206; J9299

== ENCOUNTER 2022-09-10 07:08 | Day surgery (SDC) | payer OTHER ==
[2022-09-10 16:58] VITALS: BP 105/71; PULSE 80; RESP 20; TEMP 98.2
[2022-09-10] MEDS ORDERED: PORTA CATH FLUSH 10 ML IVPUSH PRN (16:58)
== END 2022-09-10 17:00 | disposition home or self-care (01) ==
LOC: JONCCHEMO 07:08
PROVIDERS: ATTEND Internal Medicine Hematology & Oncology
PROC: 3E033GC Introduction of Other Therapeutic Substance into Peripheral Vein, Percutaneous Approach (ICD-10-PCS; principal; 2022-09-10)
DX: Z53.8 Procedure and treatment not carried out for other reasons (principal)

== ENCOUNTER 2022-09-20 09:30 | Day surgery (SDC) | payer OTHER ==
[2022-09-20] MEDS ORDERED: NIVOLUMAB 240 MG in SODIUM CHLORIDE 100 ML IVPB ONE (10:00)
[2022-09-20 10:15] LABS: BASO % 0.4 % (0-2.0); EOS % 6.4 % (0-4.5); HEMATOCRIT 32.1 % (35.4-49); HEMOGLOBIN 10.6 GM/dL (11.7-16.9); LYMPH % 30.9 % (8-40); MCH 32.8 pg (25.7-33.7); MCHC 33.1 g/dl (32.0-35.9); MEAN CELL VOLUME 98.8 fl (80-96); MEAN PLT VOLUME 8.2 fl (7.5-11.1); MONO % 11.9 % (3.8-10.2); NEUT % 50.4 % (42.8-82.8); PLATELET COUNT 178 10^3/uL (134-434); RBC 3.25 M/mm3 (4.00-5.60); RDW 14.4 % (11.9-15.9); WHITE BLOOD COUNT 4.5 K/mm3 (4.0-10.0)
[2022-09-20] MEDS ORDERED: WATER IVPB ONE (10:30)
[2022-09-20] MEDS ORDERED: LEUCOVORIN IVPB ONE (10:30)
[2022-09-20] MEDS ORDERED: DEXTROSE 5% IVPB ONE (10:30)
[2022-09-20] MEDS ORDERED: IRINOTECAN HCL 190 MG in DEXTROSE 5%-WATER - 500 ML IVPB ONE (10:30)
[2022-09-20 10:32] LABS: CALCIUM 8.8 mg/dL (8.5-10.1)
[2022-09-20 10:33] LABS: ALBUMIN 3.2 g/dl (3.4-5.0)
[2022-09-20 10:35] LABS: BILIRUBIN,DIRECT 0.1 mg/dL (0.0-0.2)
[2022-09-20 10:37] LABS: BILIRUBIN,TOTAL 0.4 mg/dL (0.2-1); TOT PROT 6.7 g/dl (6.4-8.2)
[2022-09-20] MEDS ORDERED: SODIUM CHLORIDE CP ONE (12:30)
[2022-09-20] MEDS ORDERED: FLUOROURACIL CP ONE (12:30)
[2022-09-20 14:46] VITALS: RESP 18; TEMP 98.1
[2022-09-20] MEDS ORDERED: PORTA CATH FLUSH 10 ML IVPUSH PRN ×2 (14:54→15:31)
[2022-09-20 15:31] VITALS: BP 103/65; PULSE 69
== END 2022-09-20 15:33 | disposition home or self-care (01) ==
LOC: JONCCHEMO 09:30
PROVIDERS: ATTEND Internal Medicine Hematology & Oncology
PROC: 3E04305 Introduction of Other Antineoplastic into Central Vein, Percutaneous Approach (ICD-10-PCS; principal; 2022-09-20)
PROC: 3E04305 Introduction of Other Antineoplastic into Central Vein, Percutaneous Approach (ICD-10-PCS; 2022-09-20)
PROC: 3E043GC Introduction of Other Therapeutic Substance into Central Vein, Percutaneous Approach (ICD-10-PCS; 2022-09-20)
PROC: 3E0437Z Introduction of Electrolytic and Water Balance Substance into Central Vein, Percutaneous Approach (ICD-10-PCS; 2022-09-20)
DX: Z51.11 Encounter for antineoplastic chemotherapy (principal); C16.2 Malignant neoplasm of body of stomach
CPT/HCPCS: 36415; 80048; 80076; 83735; 85025; 96367; 96368; 96375; 96413; 96417; G0498; J1453; J2469; J9206; J9299

== ENCOUNTER 2022-09-22 13:46 | Day surgery (SDC) | payer OTHER ==
[2022-09-22 14:28] VITALS: BP 113/76; PULSE 78; RESP 18; TEMP 97
== END 2022-09-22 14:15 | disposition home or self-care (01) ==
LOC: JONCCHEMO 13:46
PROVIDERS: ATTEND Internal Medicine Hematology & Oncology
DX: Z53.8 Procedure and treatment not carried out for other reasons (principal)

== ENCOUNTER 2022-10-06 09:54 | Day surgery (SDC) | payer OTHER ==
[~2022-10-06 09:54] MED LIST changes: -ATROPINE SO4 0.4 MG/1 ML VIAL SQ ONE; -DEXAMETHASONE SODIUM PHOSPHATE 8 MG in SODIUM CHLORIDE 50 ML IVPB ONE; -FOSAPREPITANT DIMEGLUMINE 150 MG in SODIUM CHLORIDE 145 ML IVPB ONE; -PALONOSETRON HCL 0.25 MG/5 ML VIAL IVPUSH ONE
[2022-10-06] MEDS ORDERED: PALONOSETRON HCL 0.25 MG/5 ML VIAL IVPUSH ONE (10:00)
[2022-10-06] MEDS ORDERED: ATROPINE SO4 0.4 MG/1 ML VIAL SQ ONE (10:00)
[2022-10-06] MEDS ORDERED: FOSAPREPITANT DIMEGLUMINE 150 MG in SODIUM CHLORIDE 145 ML IVPB ONE (10:00)
[2022-10-06] MEDS ORDERED: DEXAMETHASONE SODIUM PHOSPHATE 8 MG in SODIUM CHLORIDE 50 ML IVPB ONE (10:00)
[2022-10-06] MEDS ORDERED: NIVOLUMAB 240 MG in SODIUM CHLORIDE 100 ML IVPB ONE (10:30)
[2022-10-06] MEDS ORDERED: ALTEPLASE (CATHFLO) 2 MG/2 ML VIAL CVP ONE (10:47)
[2022-10-06 10:57] LABS: BASO % 0.8 % (0-2.0); EOS % 5.7 % (0-4.5); HEMATOCRIT 32.8 % (35.4-49); HEMOGLOBIN 10.6 GM/dL (11.7-16.9); LYMPH % 30.6 % (8-40); MCH 31.8 pg (25.7-33.7); MCHC 32.2 g/dl (32.0-35.9); MEAN CELL VOLUME 98.7 fl (80-96); MEAN PLT VOLUME 7.6 fl (7.5-11.1); MONO % 13.1 % (3.8-10.2); NEUT % 49.8 % (42.8-82.8); PLATELET COUNT 193 10^3/uL (134-434); RBC 3.33 M/mm3 (4.00-5.60); RDW 14.7 % (11.9-15.9); WHITE BLOOD COUNT 5.1 K/mm3 (4.0-10.0)
[2022-10-06] MEDS ORDERED: LEUCOVORIN IVPB ONE (11:00)
[2022-10-06] MEDS ORDERED: WATER IVPB ONE (11:00)
[2022-10-06] MEDS ORDERED: DEXTROSE 5% IVPB ONE (11:00)
[2022-10-06 11:24] LABS: ALBUMIN 3.2 g/dl (3.4-5.0); CALCIUM 9.2 mg/dL (8.5-10.1); MAGNESIUM 2.3 mg/dL (1.8-2.4)
[2022-10-06 11:25] LABS: BLOOD UREA NITROGEN 12.1 mg/dL (7-18)
[2022-10-06 11:27] LABS: BILIRUBIN,DIRECT 0.2 mg/dL (0.0-0.2); CREATININE 1.2 mg/dL (0.55-1.3)
[2022-10-06 11:29] LABS: BILIRUBIN,TOTAL 0.5 mg/dL (0.2-1); TOT PROT 6.7 g/dl (6.4-8.2)
[2022-10-06] MEDS ORDERED: IRINOTECAN HCL 190 MG in DEXTROSE 5%-WATER - 500 ML IVPB ONE (11:30)
[2022-10-06] MEDS ORDERED: FLUOROURACIL CP ONE (13:00)
[2022-10-06] MEDS ORDERED: SODIUM CHLORIDE CP ONE (13:00)
[2022-10-06 16:43] VITALS: BP 103/67; PULSE 64; RESP 18; TEMP 97.9
[2022-10-06] MEDS ORDERED: PORTA CATH FLUSH 10 ML IVPUSH PRN (16:52)
== END 2022-10-06 16:53 | disposition home or self-care (01) ==
LOC: JONCCHEMO 09:54
PROVIDERS: ATTEND Internal Medicine Hematology & Oncology
DX: Z51.11 Encounter for antineoplastic chemotherapy (principal); C16.2 Malignant neoplasm of body of stomach
CPT/HCPCS: 36415; 80048; 80076; 83735; 85025; 96366; 96367; 96375; 96413; 96417; G0498; J1453; J2469; J9206; J9299

== ENCOUNTER 2022-10-08 14:43 | Day surgery (SDC) | payer OTHER ==
[2022-10-08 17:31] VITALS: BP 107/67; PULSE 71; RESP 18; TEMP 98.3
== END 2022-10-08 15:00 | disposition home or self-care (01) ==
LOC: JONCCHEMO 14:43
PROVIDERS: ATTEND Internal Medicine Hematology & Oncology

== ENCOUNTER 2022-10-20 09:34 | Day surgery (SDC) | payer OTHER ==
[~2022-10-20 09:34] MED LIST changes: +ATROPINE SO4 0.4 MG/1 ML VIAL SQ ONE; +DEXAMETHASONE SODIUM PHOSPHATE 8 MG in SODIUM CHLORIDE 50 ML IVPB ONE; +FOSAPREPITANT DIMEGLUMINE 150 MG in SODIUM CHLORIDE 145 ML IVPB ONE; +PALONOSETRON HCL 0.25 MG/5 ML VIAL IVPUSH ONE
[2022-10-20] MEDS ORDERED: NIVOLUMAB 240 MG in SODIUM CHLORIDE 100 ML IVPB ONE (10:00)
[2022-10-20] MEDS ORDERED: LEUCOVORIN IVPB ONE (10:30)
[2022-10-20] MEDS ORDERED: WATER IVPB ONE (10:30)
[2022-10-20] MEDS ORDERED: DEXTROSE 5% IVPB ONE (10:30)
[2022-10-20] MEDS ORDERED: IRINOTECAN HCL 190 MG in DEXTROSE 5%-WATER - 500 ML IVPB ONE (10:30)
[2022-10-20 10:34] LABS: BASO % 0.5 % (0-2.0); EOS % 6.8 % (0-4.5); HEMATOCRIT 32.4 % (35.4-49); HEMOGLOBIN 10.8 GM/dL (11.7-16.9); LYMPH % 27.8 % (8-40); MCH 32.8 pg (25.7-33.7); MCHC 33.4 g/dl (32.0-35.9); MEAN CELL VOLUME 98.3 fl (80-96); MEAN PLT VOLUME 8.3 fl (7.5-11.1); MONO % 14.8 % (3.8-10.2); NEUT % 50.1 % (42.8-82.8); PLATELET COUNT 169 10^3/uL (134-434); RDW 14.7 % (11.9-15.9); WHITE BLOOD COUNT 5.5 K/mm3 (4.0-10.0)
[2022-10-20 10:55] LABS: CALCIUM 9.1 mg/dL (8.5-10.1)
[2022-10-20 10:56] LABS: ALBUMIN 3.4 g/dl (3.4-5.0); BLOOD UREA NITROGEN 14.4 mg/dL (7-18); MAGNESIUM 2.3 mg/dL (1.8-2.4)
[2022-10-20 10:59] LABS: BILIRUBIN,DIRECT 0.2 mg/dL (0.0-0.2); CREATININE 1.2 mg/dL (0.55-1.3)
[2022-10-20 11:00] LABS: BILIRUBIN,TOTAL 0.5 mg/dL (0.2-1)
[2022-10-20 11:01] LABS: TOT PROT 6.6 g/dl (6.4-8.2)
[2022-10-20] MEDS ORDERED: FLUOROURACIL 3,000 MG in SODIUM CHLORIDE 32 ML CP ONE (12:30)
[2022-10-20 17:46] VITALS: BP 95/57; PULSE 66; RESP 18; TEMP 97.9
[2022-10-20] MEDS ORDERED: PORTA CATH FLUSH 10 ML IVPUSH PRN (17:46)
== END 2022-10-20 16:30 | disposition home or self-care (01) ==
LOC: JONCCHEMO 09:34
PROVIDERS: ATTEND Internal Medicine Hematology & Oncology
DX: Z51.11 Encounter for antineoplastic chemotherapy (principal); C16.2 Malignant neoplasm of body of stomach
CPT/HCPCS: 36415; 80048; 80076; 82150; 82533; 83690; 83735; 84439; 84443; 85025; 96366; 96367; 96375; 96413; 96415; 96417; G0498; J1453; J2469; J9206; J9299

== ENCOUNTER 2022-10-22 08:21 | Day surgery (SDC) | payer OTHER ==
[2022-10-22 15:18] VITALS: BP 112/67; PULSE 74; RESP 18; TEMP 97.7
[2022-10-22] MEDS ORDERED: PORTA CATH FLUSH 10 ML IVPUSH PRN (15:18)
== END 2022-10-22 14:55 | disposition home or self-care (01) ==
LOC: JONCCHEMO 08:21
PROVIDERS: ATTEND Internal Medicine Hematology & Oncology
DX: Z53.8 Procedure and treatment not carried out for other reasons (principal)

== ENCOUNTER 2022-11-03 08:51 | Day surgery (SDC) | payer OTHER ==
[2022-11-03] MEDS ORDERED: SODIUM CHLORIDE 250 ML IV ONE (09:00)
[2022-11-03 09:19] LABS: BASO % 0.5 % (0-2.0); EOS % 6.1 % (0-4.5); HEMATOCRIT 32.8 % (35.4-49); HEMOGLOBIN 11.1 GM/dL (11.7-16.9); LYMPH % 22.4 % (8-40); MCH 33.1 pg (25.7-33.7); MCHC 33.8 g/dl (32.0-35.9); MEAN CELL VOLUME 97.9 fl (80-96); MEAN PLT VOLUME 7.4 fl (7.5-11.1); MONO % 13.5 % (3.8-10.2); NEUT % 57.5 % (42.8-82.8); PLATELET COUNT 172 10^3/uL (134-434); RBC 3.35 M/mm3 (4.00-5.60); RDW 15.3 % (11.9-15.9); WHITE BLOOD COUNT 6.6 K/mm3 (4.0-10.0)
[2022-11-03] MEDS ORDERED: DEXAMETHASONE SODIUM PHOSPHATE 8 MG in SODIUM CHLORIDE 50 ML IVPB ONE (09:30)
[2022-11-03] MEDS ORDERED: PALONOSETRON HCL 0.25 MG/5 ML VIAL IVPUSH ONE (09:30)
[2022-11-03] MEDS ORDERED: ATROPINE SO4 0.4 MG/1 ML VIAL SQ ONE (09:30)
[2022-11-03] MEDS ORDERED: FOSAPREPITANT DIMEGLUMINE 150 MG in SODIUM CHLORIDE 145 ML IVPB ONE (09:30)
[2022-11-03 09:46] LABS: CALCIUM 9.5 mg/dL (8.5-10.1)
[2022-11-03 09:47] LABS: ALBUMIN 3.4 g/dl (3.4-5.0); BLOOD UREA NITROGEN 14.6 mg/dL (7-18); MAGNESIUM 2.1 mg/dL (1.8-2.4)
[2022-11-03 09:50] LABS: BILIRUBIN,DIRECT 0.1 mg/dL (0.0-0.2); CREATININE 1.3 mg/dL (0.55-1.3)
[2022-11-03 09:51] LABS: BILIRUBIN,TOTAL 0.5 mg/dL (0.2-1); TOT PROT 6.6 g/dl (6.4-8.2)
[2022-11-03] MEDS ORDERED: NIVOLUMAB 240 MG in SODIUM CHLORIDE 100 ML IVPB ONE (10:00)
[2022-11-03] MEDS ORDERED: LEUCOVORIN INJECTION - 628 MG in DEXTROSE 5%-WATER - 250 ML IVPB ONE (10:30)
[2022-11-03] MEDS ORDERED: IRINOTECAN HCL 190 MG in DEXTROSE 5%-WATER - 500 ML IVPB ONE (10:30)
[2022-11-03] MEDS ORDERED: SODIUM CHLORIDE CP ONE (12:30)
[2022-11-03] MEDS ORDERED: FLUOROURACIL CP ONE (12:30)
[2022-11-03 14:49] VITALS: BP 107/63; PULSE 66; TEMP 98.1
[2022-11-03] MEDS ORDERED: PORTA CATH FLUSH 10 ML IVPUSH PRN (15:00)
[2022-11-03 15:01] VITALS: RESP 20
== END 2022-11-03 15:02 | disposition home or self-care (01) ==
LOC: JONCCHEMO 08:51
PROVIDERS: ATTEND Internal Medicine Hematology & Oncology
DX: Z51.11 Encounter for antineoplastic chemotherapy (principal); C16.2 Malignant neoplasm of body of stomach
CPT/HCPCS: 36415; 80048; 80076; 82378; 83735; 85025; 96366; 96367; 96375; 96413; 96415; 96417; G0498; J1453; J2469; J9206; J9299

== ENCOUNTER 2022-11-05 14:00 | Day surgery (SDC) | payer OTHER ==
[2022-11-05 16:45] VITALS: BP 95/58; PULSE 71; RESP 20; TEMP 98.2
[2022-11-05] MEDS ORDERED: PORTA CATH FLUSH 10 ML IVPUSH PRN (16:46)
== END 2022-11-05 17:01 | disposition home or self-care (01) ==
LOC: JONCCHEMO 14:00
PROVIDERS: ATTEND Internal Medicine Hematology & Oncology
DX: Z53.8 Procedure and treatment not carried out for other reasons (principal)

== ENCOUNTER 2022-11-17 09:10 | Day surgery (SDC) | payer OTHER ==
[2022-11-17] MEDS ORDERED: SODIUM CHLORIDE 250 ML IV ONE (09:30)
[2022-11-17 09:45] LABS: BASO % 0.5 % (0-2.0); EOS % 5.5 % (0-4.5); HEMATOCRIT 33.1 % (35.4-49); LYMPH % 28.9 % (8-40); MCH 32.2 pg (25.7-33.7); MCHC 33.3 g/dl (32.0-35.9); MEAN CELL VOLUME 96.8 fl (80-96); MEAN PLT VOLUME 7.5 fl (7.5-11.1); MONO % 11.9 % (3.8-10.2); NEUT % 53.2 % (42.8-82.8); PLATELET COUNT 172 10^3/uL (134-434); RBC 3.42 M/mm3 (4.00-5.60); RDW 15.4 % (11.9-15.9); WHITE BLOOD COUNT 5.2 K/mm3 (4.0-10.0)
[2022-11-17] MEDS ORDERED: DEXAMETHASONE SODIUM PHOSPHATE 8 MG in SODIUM CHLORIDE 50 ML IVPB ONE (10:00)
[2022-11-17] MEDS ORDERED: ATROPINE SO4 0.4 MG/1 ML VIAL SQ ONE (10:00)
[2022-11-17] MEDS ORDERED: PALONOSETRON HCL 0.25 MG/5 ML VIAL IVPUSH ONE (10:00)
[2022-11-17] MEDS ORDERED: FOSAPREPITANT DIMEGLUMINE 150 MG in SODIUM CHLORIDE 145 ML IVPB ONE (10:00)
[2022-11-17 10:17] LABS: ALBUMIN 3.5 g/dl (3.4-5.0)
[2022-11-17 10:20] LABS: BILIRUBIN,DIRECT 0.2 mg/dL (0.0-0.2)
[2022-11-17 10:21] LABS: BILIRUBIN,TOTAL 0.5 mg/dL (0.2-1); TOT PROT 6.7 g/dl (6.4-8.2)
[2022-11-17] MEDS ORDERED: NIVOLUMAB 240 MG in SODIUM CHLORIDE 100 ML IVPB ONE (10:30)
[2022-11-17 10:48] LABS: BLOOD UREA NITROGEN 11.8 mg/dL (7-18); CALCIUM 9.1 mg/dL (8.5-10.1); MAGNESIUM 2.2 mg/dL (1.8-2.4)
[2022-11-17 10:50] LABS: CREATININE 1.1 mg/dL (0.55-1.3)
[2022-11-17] MEDS ORDERED: DEXTROSE 5% IVPB ONE (11:00)
[2022-11-17] MEDS ORDERED: LEUCOVORIN IVPB ONE (11:00)
[2022-11-17] MEDS ORDERED: WATER IVPB ONE (11:00)
[2022-11-17] MEDS ORDERED: IRINOTECAN HCL 190 MG in DEXTROSE 5%-WATER - 500 ML IVPB ONE (11:30)
[2022-11-17] MEDS ORDERED: ATROPINE SO4 0.4 MG/1 ML VIAL IVPUSH ONE (12:47)
[2022-11-17] MEDS ORDERED: FLUOROURACIL CP ONE (13:00)
[2022-11-17] MEDS ORDERED: SODIUM CHLORIDE CP ONE (13:00)
[2022-11-17 15:04] VITALS: RESP 18; TEMP 98.1
[2022-11-17] MEDS ORDERED: PORTA CATH FLUSH 10 ML IVPUSH PRN (15:12)
[2022-11-17 16:08] VITALS: BP 134/65; PULSE 63
== END 2022-11-17 16:00 | disposition home or self-care (01) ==
LOC: JONCCHEMO 09:10
PROVIDERS: ATTEND Internal Medicine Hematology & Oncology
DX: Z51.11 Encounter for antineoplastic chemotherapy (principal); C16.2 Malignant neoplasm of body of stomach
CPT/HCPCS: 36415; 80048; 80076; 82150; 82533; 83690; 83735; 84439; 84443; 85025; 96366; 96367; 96375; 96413; 96417; G0498; J1453; J2469; J9206; J9299

== ENCOUNTER 2022-11-19 14:22 | Day surgery (SDC) | payer OTHER ==
[2022-11-19] MEDS ORDERED: PORTA CATH FLUSH 10 ML IVPUSH PRN (14:30)
[2022-11-19 17:02] VITALS: BP 121/81; PULSE 100; RESP 20; TEMP 98.2
== END 2022-11-19 14:45 | disposition home or self-care (01) ==
LOC: JONCCHEMO 14:22
PROVIDERS: ATTEND Internal Medicine Hematology & Oncology
DX: Z53.8 Procedure and treatment not carried out for other reasons (principal)

== ENCOUNTER 2022-12-01 09:44 | Day surgery (SDC) | payer OTHER ==
[2022-12-01] MEDS ORDERED: SODIUM CHLORIDE 250 ML IV ONE (10:00)
[2022-12-01] MEDS ORDERED: DEXAMETHASONE SODIUM PHOSPHATE 8 MG in SODIUM CHLORIDE 50 ML IVPB ONE (10:00)
[2022-12-01] MEDS ORDERED: FOSAPREPITANT DIMEGLUMINE 150 MG in SODIUM CHLORIDE 145 ML IVPB ONE (10:00)
[2022-12-01] MEDS ORDERED: ATROPINE SO4 0.4 MG/1 ML VIAL IVPUSH ONE (10:00)
[2022-12-01] MEDS ORDERED: PALONOSETRON HCL 0.25 MG/5 ML VIAL IVPUSH ONE (10:00)
[2022-12-01 10:23] LABS: BASO % 0.8 % (0-2.0); EOS % 4.7 % (0-4.5); HEMATOCRIT 30.9 % (35.4-49); HEMOGLOBIN 10.5 GM/dL (11.7-16.9); LYMPH % 27.4 % (8-40); MCH 33.1 pg (25.7-33.7); MCHC 34.2 g/dl (32.0-35.9); MEAN CELL VOLUME 96.9 fl (80-96); MEAN PLT VOLUME 7.9 fl (7.5-11.1); MONO % 16.7 % (3.8-10.2); NEUT % 50.4 % (42.8-82.8); PLATELET COUNT 187 10^3/uL (134-434); RBC 3.18 M/mm3 (4.00-5.60); RDW 15.6 % (11.9-15.9); WHITE BLOOD COUNT 5.7 K/mm3 (4.0-10.0)
[2022-12-01] MEDS ORDERED: NIVOLUMAB 240 MG in SODIUM CHLORIDE 100 ML IVPB ONE (10:30)
[2022-12-01 10:48] LABS: BLOOD UREA NITROGEN 13.6 mg/dL (7-18); CALCIUM 9.1 mg/dL (8.5-10.1)
[2022-12-01 10:49] LABS: ALBUMIN 3.5 g/dl (3.4-5.0)
[2022-12-01 10:51] LABS: CREATININE 1.1 mg/dL (0.55-1.3)
[2022-12-01 10:52] LABS: BILIRUBIN,DIRECT 0.2 mg/dL (0.0-0.2)
[2022-12-01 10:53] LABS: BILIRUBIN,TOTAL 0.5 mg/dL (0.2-1); TOT PROT 6.6 g/dl (6.4-8.2)
[2022-12-01] MEDS ORDERED: DEXTROSE 5% IVPB ONE (11:00)
[2022-12-01] MEDS ORDERED: WATER IVPB ONE (11:00)
[2022-12-01] MEDS ORDERED: LEUCOVORIN CALCIUM IVPB ONE (11:00)
[2022-12-01] MEDS ORDERED: IRINOTECAN HCL 190 MG in DEXTROSE 5%-WATER - 500 ML IVPB ONE (11:30)
[2022-12-01] MEDS ORDERED: SODIUM CHLORIDE CP ONE (13:00)
[2022-12-01] MEDS ORDERED: FLUOROURACIL CP ONE (13:00)
[2022-12-01 16:32] VITALS: RESP 18; TEMP 97.9
[2022-12-01 17:03] VITALS: BP 120/74; PULSE 65
[2022-12-01] MEDS ORDERED: PORTA CATH FLUSH 10 ML IVPUSH PRN (17:03)
== END 2022-12-01 15:50 | disposition home or self-care (01) ==
LOC: JONCCHEMO 09:44
PROVIDERS: ATTEND Internal Medicine Hematology & Oncology
DX: Z51.11 Encounter for antineoplastic chemotherapy (principal); C16.2 Malignant neoplasm of body of stomach
CPT/HCPCS: 36415; 80048; 80076; 82150; 82533; 83690; 83735; 84439; 84443; 85025; 96366; 96367; 96375; 96413; 96417; G0498; J1453; J2469; J9206; J9299

== ENCOUNTER 2022-12-03 14:00 | Day surgery (SDC) | payer OTHER ==
[2022-12-03 17:55] VITALS: BP 114/72; PULSE 73; RESP 18; TEMP 98.1
[2022-12-03] MEDS ORDERED: PORTA CATH FLUSH 10 ML IVPUSH PRN (17:55)
== END 2022-12-03 14:25 | disposition home or self-care (01) ==
LOC: JONCCHEMO 14:00
PROVIDERS: ATTEND Internal Medicine Hematology & Oncology
DX: Z53.8 Procedure and treatment not carried out for other reasons (principal)
CPT/HCPCS: 96365

== ENCOUNTER 2022-12-13 10:18 | Day surgery (SDC) | payer OTHER ==
[~2022-12-13 10:18] MED LIST changes: +ATROPINE SO4 0.4 MG/1 ML VIAL IVPUSH ONE; -ATROPINE SO4 0.4 MG/1 ML VIAL SQ ONE; +NIVOLUMAB 240 MG in SODIUM CHLORIDE 100 ML IVPB ONE
[2022-12-13] MEDS ORDERED: DEXTROSE 5% IVPB ONE (10:30)
[2022-12-13] MEDS ORDERED: IRINOTECAN HCL 190 MG in DEXTROSE 5%-WATER - 500 ML IVPB ONE (10:30)
[2022-12-13] MEDS ORDERED: LEUCOVORIN CALCIUM IVPB ONE (10:30)
[2022-12-13] MEDS ORDERED: WATER IVPB ONE (10:30)
[2022-12-13 11:00] LABS: BASO % 0.5 % (0-2.0); EOS % 3.1 % (0-4.5); HEMATOCRIT 30.8 % (35.4-49); HEMOGLOBIN 10.1 GM/dL (11.7-16.9); MCH 31.6 pg (25.7-33.7); MCHC 32.7 g/dl (32.0-35.9); MEAN CELL VOLUME 96.6 fl (80-96); MEAN PLT VOLUME 7.8 fl (7.5-11.1); MONO % 17.7 % (3.8-10.2); NEUT % 49.7 % (42.8-82.8); PLATELET COUNT 161 10^3/uL (134-434); RBC 3.19 M/mm3 (4.00-5.60); RDW 15.8 % (11.9-15.9); WHITE BLOOD COUNT 5.5 K/mm3 (4.0-10.0)
[2022-12-13 11:13] LABS: BLOOD UREA NITROGEN 15.4 mg/dL (7-18); CALCIUM 9.2 mg/dL (8.5-10.1)
[2022-12-13 11:14] LABS: ALBUMIN 3.3 g/dl (3.4-5.0); MAGNESIUM 2.2 mg/dL (1.8-2.4)
[2022-12-13 11:16] LABS: BILIRUBIN,DIRECT 0.2 mg/dL (0.0-0.2); CREATININE 1.2 mg/dL (0.55-1.3)
[2022-12-13 11:18] LABS: BILIRUBIN,TOTAL 0.4 mg/dL (0.2-1); TOT PROT 6.3 g/dl (6.4-8.2)
[2022-12-13] MEDS ORDERED: FLUOROURACIL 3,000 MG in SODIUM CHLORIDE 32 ML CP ONE (12:30)
[2022-12-13 18:13] VITALS: BP 90/61; PULSE 67; RESP 18; TEMP 98.1
[2022-12-13] MEDS ORDERED: PORTA CATH FLUSH 10 ML IVPUSH PRN (18:13)
== END 2022-12-13 16:15 | disposition home or self-care (01) ==
LOC: JONCCHEMO 10:18
PROVIDERS: ATTEND Internal Medicine Hematology & Oncology
DX: Z51.11 Encounter for antineoplastic chemotherapy (principal); C16.2 Malignant neoplasm of body of stomach
CPT/HCPCS: 36415; 80048; 80076; 82150; 82533; 83690; 83735; 84439; 84443; 85025; 96366; 96367; 96375; 96413; 96417; G0498; J1453; J2469; J9206; J9299

== ENCOUNTER 2022-12-15 14:45 | Day surgery (SDC) | payer OTHER ==
[2022-12-15 17:13] VITALS: BP 108/60; PULSE 71; RESP 18; TEMP 98.1
== END 2022-12-15 15:30 | disposition home or self-care (01) ==
LOC: JONCCHEMO 14:45
PROVIDERS: ATTEND Internal Medicine Hematology & Oncology
DX: Z53.8 Procedure and treatment not carried out for other reasons (principal)

== ENCOUNTER 2022-12-29 09:04 | Day surgery (SDC) | payer OTHER ==
[2022-12-29] MEDS ORDERED: PALONOSETRON HCL 0.25 MG/5 ML VIAL IVPUSH ONE (09:30)
[2022-12-29] MEDS ORDERED: ATROPINE SO4 0.4 MG/1 ML VIAL IVPUSH ONE (09:30)
[2022-12-29] MEDS ORDERED: SODIUM CHLORIDE 250 ML IV ONE (09:30)
[2022-12-29] MEDS ORDERED: DEXAMETHASONE SODIUM PHOSPHATE 8 MG in SODIUM CHLORIDE 50 ML IVPB ONE (09:30)
[2022-12-29] MEDS ORDERED: FOSAPREPITANT DIMEGLUMINE 150 MG in SODIUM CHLORIDE 145 ML IVPB ONE (09:30)
[2022-12-29 09:44] LABS: BASO % 0.9 % (0-2.0); EOS % 5.1 % (0-4.5); HEMATOCRIT 31.7 % (35.4-49); HEMOGLOBIN 10.8 GM/dL (11.7-16.9); LYMPH % 27.7 % (8-40); MCH 32.8 pg (25.7-33.7); MEAN CELL VOLUME 96.4 fl (80-96); MEAN PLT VOLUME 7.9 fl (7.5-11.1); NEUT % 48.3 % (42.8-82.8); PLATELET COUNT 188 10^3/uL (134-434); RBC 3.29 M/mm3 (4.00-5.60); RDW 16.2 % (11.9-15.9); WHITE BLOOD COUNT 4.4 K/mm3 (4.0-10.0)
[2022-12-29] MEDS ORDERED: NIVOLUMAB 240 MG in SODIUM CHLORIDE 100 ML IVPB ONE (10:00)
[2022-12-29 10:12] LABS: ALBUMIN 3.2 g/dl (3.4-5.0); CALCIUM 9.1 mg/dL (8.5-10.1)
[2022-12-29 10:13] LABS: URIC ACID 4.3 mg/dL (2.6-7.2)
[2022-12-29 10:14] LABS: CREATININE 1.2 mg/dL (0.55-1.3)
[2022-12-29 10:15] LABS: BILIRUBIN,DIRECT 0.2 mg/dL (0.0-0.2)
[2022-12-29 10:17] LABS: BILIRUBIN,TOTAL 0.6 mg/dL (0.2-1); MAGNESIUM 1.9 mg/dL (1.8-2.4); TOT PROT 6.2 g/dl (6.4-8.2)
[2022-12-29] MEDS ORDERED: LEUCOVORIN CALCIUM IVPB ONE (10:30)
[2022-12-29] MEDS ORDERED: WATER IVPB ONE (10:30)
[2022-12-29] MEDS ORDERED: DEXTROSE 5% IVPB ONE (10:30)
[2022-12-29] MEDS ORDERED: IRINOTECAN HCL 190 MG in DEXTROSE 5%-WATER - 500 ML IVPB ONE (10:30)
[2022-12-29] MEDS ORDERED: FLUOROURACIL 3,000 MG in SODIUM CHLORIDE 32 ML CP ONE (12:30)
[2022-12-29 16:40] VITALS: TEMP 98.1
[2022-12-29 17:14] VITALS: BP 109/72; PULSE 81; RESP 18
[2022-12-29] MEDS ORDERED: PORTA CATH FLUSH 10 ML IVPUSH PRN (17:14)
== END 2022-12-29 16:20 | disposition home or self-care (01) ==
LOC: JONCCHEMO 09:04
PROVIDERS: ATTEND Internal Medicine Hematology & Oncology
DX: Z51.11 Encounter for antineoplastic chemotherapy (principal); C16.2 Malignant neoplasm of body of stomach
CPT/HCPCS: 36415; 80048; 80076; 82150; 82378; 82533; 83690; 83735; 84439; 84550; 85025; 96367; 96375; 96413; 96417; G0498; J1453; J2469; J9206; J9299

== ENCOUNTER 2022-12-31 14:30 | Day surgery (SDC) | payer OTHER ==
[2022-12-31 18:26] VITALS: BP 105/70; PULSE 74; RESP 18; TEMP 98.4
[2022-12-31] MEDS ORDERED: PORTA CATH FLUSH 10 ML IVPUSH PRN (18:27)
== END 2022-12-31 14:45 | disposition home or self-care (01) ==
LOC: JONCCHEMO 14:30
PROVIDERS: ATTEND Internal Medicine Hematology & Oncology
DX: Z53.8 Procedure and treatment not carried out for other reasons (principal)

== ENCOUNTER 2023-01-12 08:49 | Day surgery (SDC) | payer OTHER ==
[2023-01-12 09:20] VITALS: BP 110/62; PULSE 65; RESP 18; TEMP 98.3
[2023-01-12] MEDS ORDERED: SODIUM CHLORIDE 250 ML IV ONE (09:30)
[2023-01-12 09:34] LABS: BASO % 0.5 % (0-2.0); HEMATOCRIT 31.4 % (35.4-49); HEMOGLOBIN 10.7 GM/dL (11.7-16.9); LYMPH % 25.6 % (8-40); MCH 33.2 pg (25.7-33.7); MCHC 34.2 g/dl (32.0-35.9); MEAN CELL VOLUME 97.1 fl (80-96); MEAN PLT VOLUME 8.6 fl (7.5-11.1); MONO % 14.9 % (3.8-10.2); PLATELET COUNT 173 10^3/uL (134-434); RBC 3.24 M/mm3 (4.00-5.60); RDW 15.7 % (11.9-15.9); WHITE BLOOD COUNT 4.9 K/mm3 (4.0-10.0)
[2023-01-12 09:46] LABS: BLOOD UREA NITROGEN 16.5 mg/dL (7-18); CALCIUM 9.2 mg/dL (8.5-10.1)
[2023-01-12 09:47] LABS: ALBUMIN 3.2 g/dl (3.4-5.0)
[2023-01-12 09:49] LABS: BILIRUBIN,DIRECT 0.2 mg/dL (0.0-0.2); CREATININE 1.1 mg/dL (0.55-1.3)
[2023-01-12 09:50] LABS: BILIRUBIN,TOTAL 0.5 mg/dL (0.2-1); TOT PROT 6.4 g/dl (6.4-8.2)
[2023-01-12] MEDS ORDERED: ATROPINE SO4 0.4 MG/1 ML VIAL IVPUSH ONE (10:00)
[2023-01-12] MEDS ORDERED: DEXAMETHASONE SODIUM PHOSPHATE 10 MG in SODIUM CHLORIDE 50 ML IVPB ONE (10:00)
[2023-01-12] MEDS ORDERED: PALONOSETRON HCL 0.25 MG/5 ML VIAL IVPUSH ONE (10:00)
[2023-01-12] MEDS ORDERED: FOSAPREPITANT DIMEGLUMINE 150 MG in SODIUM CHLORIDE 145 ML IVPB ONE (10:00)
[2023-01-12] MEDS ORDERED: NIVOLUMAB 240 MG in SODIUM CHLORIDE 100 ML IVPB ONE (10:30)
[2023-01-12] MEDS ORDERED: LEUCOVORIN CALCIUM IVPB ONE (11:00)
[2023-01-12] MEDS ORDERED: DEXTROSE 5% IVPB ONE (11:00)
[2023-01-12] MEDS ORDERED: WATER IVPB ONE (11:00)
[2023-01-12] MEDS ORDERED: IRINOTECAN HCL 190 MG in DEXTROSE 5%-WATER - 500 ML IVPB ONE (11:30)
[2023-01-12] MEDS ORDERED: FLUOROURACIL 3,000 MG in SODIUM CHLORIDE 32 ML CP ONE (13:00)
== END 2023-01-12 15:15 | disposition home or self-care (01) ==
LOC: JONCCHEMO 08:49
PROVIDERS: ATTEND Internal Medicine Hematology & Oncology
PROC: 3E04305 Introduction of Other Antineoplastic into Central Vein, Percutaneous Approach (ICD-10-PCS; principal; 2023-01-12)
PROC: 3E04305 Introduction of Other Antineoplastic into Central Vein, Percutaneous Approach (ICD-10-PCS; 2023-01-12)
PROC: 3E0437Z Introduction of Electrolytic and Water Balance Substance into Central Vein, Percutaneous Approach (ICD-10-PCS; 2023-01-12)
DX: Z51.11 Encounter for antineoplastic chemotherapy (principal); C16.2 Malignant neoplasm of body of stomach
CPT/HCPCS: 36415; 80048; 80076; 82150; 82533; 83690; 83735; 84439; 84443; 85025; 96367; 96368; 96375; 96413; 96417; G0498; J1453; J2469; J9206; J9299

== ENCOUNTER 2023-01-14 13:14 | Day surgery (SDC) | payer OTHER ==
[2023-01-14 13:39] VITALS: BP 111/61; PULSE 66; RESP 19; TEMP 98.5
[2023-01-14] MEDS ORDERED: PORTA CATH FLUSH 10 ML IVPUSH PRN (13:39)
== END 2023-01-14 13:40 | disposition home or self-care (01) ==
LOC: JONCCHEMO 13:14
PROVIDERS: ATTEND Internal Medicine Hematology & Oncology
DX: Z53.8 Procedure and treatment not carried out for other reasons (principal)

== ENCOUNTER 2023-03-09 09:18 | Day surgery (SDC) | payer OTHER ==
[2023-03-09] MEDS ORDERED: DEXAMETHASONE SODIUM PHOSPHATE 10 MG in SODIUM CHLORIDE 50 ML IVPB ONE (10:30)
[2023-03-09] MEDS ORDERED: ATROPINE SO4 0.4 MG/1 ML VIAL SQ ONE (10:30)
[2023-03-09] MEDS ORDERED: PALONOSETRON HCL 0.25 MG/5 ML VIAL IVPUSH ONE (10:30)
[2023-03-09] MEDS ORDERED: FOSAPREPITANT DIMEGLUMINE 150 MG in SODIUM CHLORIDE 145 ML IVPB ONE (10:30)
[2023-03-09] MEDS ORDERED: SODIUM CHLORIDE 250 ML IV ONE (10:30)
[2023-03-09] MEDS ORDERED: NIVOLUMAB 240 MG in SODIUM CHLORIDE 100 ML IVPB ONE (11:00)
[2023-03-09 11:04] LABS: BASO % 0.7 % (0-2.0); EOS % 10.5 % (0-4.5); HEMATOCRIT 33.9 % (35.4-49); HEMOGLOBIN 11.3 GM/dL (11.7-16.9); MCH 32.5 pg (25.7-33.7); MCHC 33.2 g/dl (32.0-35.9); MEAN CELL VOLUME 97.7 fl (80-96); MEAN PLT VOLUME 8.9 fl (7.5-11.1); MONO % 13.8 % (3.8-10.2); PLATELET COUNT 188 10^3/uL (134-434); RBC 3.47 M/mm3 (4.00-5.60); RDW 13.3 % (11.9-15.9); WHITE BLOOD COUNT 7.5 K/mm3 (4.0-10.0)
[2023-03-09 11:24] LABS: POTASSIUM 4.5 mmol/L (3.5-5.1)
[2023-03-09 11:26] LABS: BLOOD UREA NITROGEN 14.1 mg/dL (7-18)
[2023-03-09 11:27] LABS: ALBUMIN 3.4 g/dl (3.4-5.0)
[2023-03-09 11:29] LABS: BILIRUBIN,DIRECT 0.2 mg/dL (0.0-0.2); CREATININE 1.2 mg/dL (0.55-1.3)
[2023-03-09 11:30] LABS: LIPASE 226 U/L (73-393)
[2023-03-09] MEDS ORDERED: LEUCOVORIN IVPB ONE (11:30)
[2023-03-09] MEDS ORDERED: DEXTROSE 5% IVPB ONE (11:30)
[2023-03-09] MEDS ORDERED: WATER IVPB ONE (11:30)
[2023-03-09 11:31] LABS: BILIRUBIN,TOTAL 0.5 mg/dL (0.2-1); TOT PROT 6.6 g/dl (6.4-8.2)
[2023-03-09 11:33] LABS: AMYLASE 175 U/L (25-115)
[2023-03-09] MEDS ORDERED: IRINOTECAN HCL 190 MG in DEXTROSE 5%-WATER - 500 ML IVPB ONE (12:00)
[2023-03-09] MEDS ORDERED: ATROPINE SO4 0.4 MG/1 ML VIAL IVPUSH ONE (12:45)
[2023-03-09] MEDS ORDERED: FLUOROURACIL CP ONE (13:30)
[2023-03-09] MEDS ORDERED: SODIUM CHLORIDE CP ONE (13:30)
[2023-03-09 16:07] VITALS: BP 114/74; PULSE 70; RESP 20; TEMP 98.2
== END 2023-03-09 15:55 | disposition home or self-care (01) ==
LOC: JONCCHEMO 09:18
PROVIDERS: ATTEND Internal Medicine Hematology & Oncology
DX: Z51.11 Encounter for antineoplastic chemotherapy (principal); C16.2 Malignant neoplasm of body of stomach
CPT/HCPCS: 36415; 80048; 80076; 82150; 82533; 83690; 83735; 84439; 84443; 85025; 96366; 96367; 96375; 96413; 96417; G0498; J1453; J2469; J9206; J9299

== ENCOUNTER 2023-03-23 09:27 | Day surgery (SDC) | payer OTHER ==
[2023-03-23] MEDS ORDERED: SODIUM CHLORIDE 250 ML IV ONE (09:30)
[2023-03-23] MEDS ORDERED: DEXAMETHASONE SODIUM PHOSPHATE 10 MG in SODIUM CHLORIDE 50 ML IVPB ONE (10:00)
[2023-03-23] MEDS ORDERED: FOSAPREPITANT DIMEGLUMINE 150 MG in SODIUM CHLORIDE 145 ML IVPB ONE (10:00)
[2023-03-23] MEDS ORDERED: ATROPINE SO4 0.4 MG/1 ML VIAL IVPUSH ONE (10:00)
[2023-03-23] MEDS ORDERED: PALONOSETRON HCL 0.25 MG/5 ML VIAL IVPUSH ONE (10:00)
[2023-03-23] MEDS ORDERED: NIVOLUMAB 240 MG in SODIUM CHLORIDE 100 ML IVPB ONE (10:30)
[2023-03-23 10:33] LABS: BASO % 0.6 % (0-2.0); EOS % 8.9 % (0-4.5); HEMATOCRIT 34.5 % (35.4-49); HEMOGLOBIN 11.2 GM/dL (11.7-16.9); MCH 31.7 pg (25.7-33.7); MCHC 32.4 g/dl (32.0-35.9); MEAN CELL VOLUME 97.8 fl (80-96); MEAN PLT VOLUME 8.2 fl (7.5-11.1); NEUT % 39.5 % (42.8-82.8); PLATELET COUNT 178 10^3/uL (134-434); RBC 3.53 M/mm3 (4.00-5.60); RDW 12.9 % (11.9-15.9); WHITE BLOOD COUNT 4.3 K/mm3 (4.0-10.0)
[2023-03-23] MEDS ORDERED: LEUCOVORIN IVPB ONE (11:00)
[2023-03-23] MEDS ORDERED: WATER IVPB ONE (11:00)
[2023-03-23] MEDS ORDERED: DEXTROSE 5% IVPB ONE (11:00)
[2023-03-23 11:01] LABS: POTASSIUM 3.9 mmol/L (3.5-5.1)
[2023-03-23 11:04] LABS: ALBUMIN 3.2 g/dl (3.4-5.0); BLOOD UREA NITROGEN 12.9 mg/dL (7-18); CALCIUM 9.1 mg/dL (8.5-10.1)
[2023-03-23 11:07] LABS: BILIRUBIN,DIRECT 0.2 mg/dL (0.0-0.2); CREATININE 1.1 mg/dL (0.55-1.3)
[2023-03-23 11:09] LABS: BILIRUBIN,TOTAL 0.5 mg/dL (0.2-1); TOT PROT 6.5 g/dl (6.4-8.2)
[2023-03-23] MEDS ORDERED: IRINOTECAN HCL 190 MG in DEXTROSE 5%-WATER - 500 ML IVPB ONE (11:30)
[2023-03-23] MEDS ORDERED: FLUOROURACIL CP ONE (13:00)
[2023-03-23] MEDS ORDERED: SODIUM CHLORIDE CP ONE (13:00)
[2023-03-23] MEDS ORDERED: LOPERAMIDE HCL 2 MG CAPSULE PO ONE (15:09)
[2023-03-23 16:37] VITALS: RESP 20; TEMP 97.6
[2023-03-23 17:30] VITALS: BP 113/74; PULSE 71
[2023-03-23] MEDS ORDERED: PORTA CATH FLUSH 10 ML IVPUSH PRN (17:30)
== END 2023-03-23 15:30 | disposition home or self-care (01) ==
LOC: JONCCHEMO 09:27 → J7W 09:28 → JONCCHEMO 15:30
PROVIDERS: ATTEND Internal Medicine Hematology & Oncology
DX: Z51.11 Encounter for antineoplastic chemotherapy (principal); C16.2 Malignant neoplasm of body of stomach
CPT/HCPCS: 36415; 80048; 80076; 82150; 82533; 83690; 83735; 84439; 84443; 85025; 96366; 96367; 96375; 96413; 96417; G0498; J1453; J2469; J9206; J9299

== ENCOUNTER 2023-03-25 14:00 | Day surgery (SDC) | payer OTHER ==
[2023-03-25 16:48] VITALS: BP 104/60; PULSE 67; RESP 18; TEMP 98.3
[2023-03-25] MEDS ORDERED: PORTA CATH FLUSH 10 ML IVPUSH PRN (16:48)
== END 2023-03-25 14:10 | disposition home or self-care (01) ==
LOC: JONCCHEMO 14:00 → J7W 14:00 → JONCCHEMO 14:10
PROVIDERS: ATTEND Internal Medicine Hematology & Oncology
DX: Z53.9 Procedure and treatment not carried out, unspecified reason (principal)

== ENCOUNTER 2023-04-06 09:24 | Day surgery (SDC) | payer OTHER ==
[~2023-04-06 09:24] MED LIST changes: -ATROPINE SO4 0.4 MG/1 ML VIAL IVPUSH ONE; -DEXAMETHASONE SODIUM PHOSPHATE 8 MG in SODIUM CHLORIDE 50 ML IVPB ONE; -FOSAPREPITANT DIMEGLUMINE 150 MG in SODIUM CHLORIDE 145 ML IVPB ONE; -NIVOLUMAB 240 MG in SODIUM CHLORIDE 100 ML IVPB ONE; -PALONOSETRON HCL 0.25 MG/5 ML VIAL IVPUSH ONE
[2023-04-06] MEDS ORDERED: FOSAPREPITANT DIMEGLUMINE 150 MG in SODIUM CHLORIDE 145 ML IVPB ONE (09:30)
[2023-04-06] MEDS ORDERED: PALONOSETRON HCL 0.25 MG/5 ML VIAL IVPUSH ONE (09:30)
[2023-04-06] MEDS ORDERED: DEXAMETHASONE SODIUM PHOSPHATE 10 MG in SODIUM CHLORIDE 50 ML IVPB ONE (09:30)
[2023-04-06] MEDS ORDERED: ATROPINE SO4 0.4 MG/1 ML VIAL IVPUSH ONE (09:30)
[2023-04-06] MEDS ORDERED: NIVOLUMAB 240 MG in SODIUM CHLORIDE 100 ML IVPB ONE (10:00)
[2023-04-06] MEDS ORDERED: IRINOTECAN HCL 190 MG in DEXTROSE 5%-WATER - 500 ML IVPB ONE (10:30)
[2023-04-06] MEDS ORDERED: WATER IVPB ONE (10:30)
[2023-04-06] MEDS ORDERED: DEXTROSE 5% IVPB ONE (10:30)
[2023-04-06] MEDS ORDERED: LEUCOVORIN IVPB ONE (10:30)
[2023-04-06] MEDS ORDERED: FLUOROURACIL CP ONE (12:30)
[2023-04-06] MEDS ORDERED: SODIUM CHLORIDE CP ONE (12:30)
== END 2023-04-06 14:00 | disposition home or self-care (01) ==
LOC: JONCCHEMO 09:24 → J7W 09:24 → JONCCHEMO 14:00
PROVIDERS: ATTEND Internal Medicine Hematology & Oncology
PROC: 3E033GC Introduction of Other Therapeutic Substance into Peripheral Vein, Percutaneous Approach (ICD-10-PCS; principal; 2023-04-06)
DX: Z53.8 Procedure and treatment not carried out for other reasons (principal)
CPT/HCPCS: 93971

== ENCOUNTER → 2023-04-07 | Day surgery (SDC) | payer OTHER | END | disposition home or self-care (01) | LOC: JRADIR 09:01 | PROVIDERS: ATTEND Internal Medicine Hematology & Oncology | PROC: 3E043KZ Introduction of Other Diagnostic Substance into Central Vein, Percutaneous Approach (ICD-10-PCS; principal; 2023-04-07) | PROC: B51VYZZ Fluoroscopy of Other Veins using Other Contrast (ICD-10-PCS; 2023-04-07) | DX: C16.2 Malignant neoplasm of body of stomach (principal) | CPT/HCPCS: 36598; 75820-TC-FY ==

== ENCOUNTER 2023-05-04 09:33 | Day surgery (SDC) | payer OTHER ==
[2023-05-04 09:47] LABS: BASO % 0.6 % (0-2.0); HEMOGLOBIN 11.1 GM/dL (11.7-16.9); LYMPH % 27.2 % (8-40); MCH 31.1 pg (25.7-33.7); MCHC 32.6 g/dl (32.0-35.9); MEAN CELL VOLUME 95.4 fl (80-96); MEAN PLT VOLUME 8.1 fl (7.5-11.1); MONO % 13.9 % (3.8-10.2); NEUT % 49.3 % (42.8-82.8); PLATELET COUNT 180 10^3/uL (134-434); RBC 3.57 M/mm3 (4.00-5.60); WHITE BLOOD COUNT 5.5 K/mm3 (4.0-10.0)
[2023-05-04] MEDS ORDERED: FOSAPREPITANT DIMEGLUMINE 150 MG in SODIUM CHLORIDE 145 ML IVPB ONE (10:00)
[2023-05-04] MEDS ORDERED: ATROPINE SO4 0.4 MG/1 ML VIAL IVPUSH ONE (10:00)
[2023-05-04] MEDS ORDERED: DEXAMETHASONE SODIUM PHOSPHATE 10 MG in SODIUM CHLORIDE 50 ML IVPB ONE (10:00)
[2023-05-04] MEDS ORDERED: PALONOSETRON HCL 0.25 MG/5 ML VIAL IVPUSH ONE (10:00)
[2023-05-04 10:05] LABS: ALBUMIN 3.3 g/dl (3.4-5.0); BLOOD UREA NITROGEN 14.9 mg/dL (7-18); CALCIUM 8.6 mg/dL (8.5-10.1); MAGNESIUM 1.9 mg/dL (1.8-2.4)
[2023-05-04 10:07] LABS: BILIRUBIN,DIRECT 0.2 mg/dL (0.0-0.2)
[2023-05-04 10:08] LABS: CREATININE 1.3 mg/dL (0.55-1.3)
[2023-05-04 10:09] LABS: BILIRUBIN,TOTAL 0.4 mg/dL (0.2-1); TOT PROT 6.4 g/dl (6.4-8.2)
[2023-05-04] MEDS ORDERED: NIVOLUMAB 240 MG in SODIUM CHLORIDE 100 ML IVPB ONE (10:30)
[2023-05-04] MEDS ORDERED: DEXTROSE 5% IVPB ONE (11:00)
[2023-05-04] MEDS ORDERED: LEUCOVORIN IVPB ONE (11:00)
[2023-05-04] MEDS ORDERED: WATER IVPB ONE (11:00)
[2023-05-04] MEDS ORDERED: IRINOTECAN HCL 190 MG in DEXTROSE 5%-WATER - 500 ML IVPB ONE (11:30)
[2023-05-04] MEDS ORDERED: FLUOROURACIL 3,000 MG in SODIUM CHLORIDE 32 ML CP ONE (13:00)
[2023-05-04 15:18] VITALS: BP 118/68; PULSE 60; RESP 18; TEMP 97.7
== END 2023-05-04 14:15 | disposition home or self-care (01) ==
LOC: JONCCHEMO 09:33 → J7W 09:36 → JONCCHEMO 14:15
PROVIDERS: ATTEND Internal Medicine Hematology & Oncology
DX: Z51.11 Encounter for antineoplastic chemotherapy (principal); C16.2 Malignant neoplasm of body of stomach
CPT/HCPCS: 36415; 80048; 80076; 82150; 82533; 83690; 83735; 84439; 84443; 85025; 96366; 96367; 96375; 96413; 96417; G0498; J1453; J2469; J9206; J9299

== ENCOUNTER 2023-05-18 09:31 | Day surgery (SDC) | payer OTHER ==
[2023-05-18] MEDS ORDERED: DEXAMETHASONE SODIUM PHOSPHATE 10 MG in SODIUM CHLORIDE 50 ML IVPB ONE (10:00)
[2023-05-18] MEDS ORDERED: FOSAPREPITANT DIMEGLUMINE 150 MG in SODIUM CHLORIDE 145 ML IVPB ONE (10:00)
[2023-05-18] MEDS ORDERED: PALONOSETRON HCL 0.25 MG/5 ML VIAL IVPUSH ONE (10:00)
[2023-05-18] MEDS ORDERED: ATROPINE SO4 0.4 MG/1 ML VIAL IVPUSH ONE (10:00)
[2023-05-18 10:21] LABS: EOS % 5.3 % (0-4.5); HEMATOCRIT 31.8 % (35.4-49); HEMOGLOBIN 10.3 GM/dL (11.7-16.9); LYMPH % 34.2 % (8-40); MCHC 32.5 g/dl (32.0-35.9); MEAN CELL VOLUME 95.3 fl (80-96); MEAN PLT VOLUME 8.7 fl (7.5-11.1); MONO % 14.8 % (3.8-10.2); NEUT % 44.7 % (42.8-82.8); PLATELET COUNT 185 10^3/uL (134-434); RBC 3.34 M/mm3 (4.00-5.60); RDW 14.5 % (11.9-15.9); WHITE BLOOD COUNT 4.3 K/mm3 (4.0-10.0)
[2023-05-18] MEDS ORDERED: NIVOLUMAB 240 MG in SODIUM CHLORIDE 100 ML IVPB ONE (10:30)
[2023-05-18] MEDS ORDERED: DEXTROSE 5% IVPB ONE (11:00)
[2023-05-18] MEDS ORDERED: WATER IVPB ONE (11:00)
[2023-05-18] MEDS ORDERED: LEUCOVORIN IVPB ONE (11:00)
[2023-05-18 11:14] LABS: ALBUMIN 3.2 g/dl (3.4-5.0); BLOOD UREA NITROGEN 22.2 mg/dL (7-18); CALCIUM 8.9 mg/dL (8.5-10.1); MAGNESIUM 2.3 mg/dL (1.8-2.4)
[2023-05-18 11:16] LABS: BILIRUBIN,DIRECT 0.1 mg/dL (0.0-0.2); CREATININE 1.1 mg/dL (0.55-1.3)
[2023-05-18 11:17] LABS: BILIRUBIN,TOTAL 0.3 mg/dL (0.2-1); TOT PROT 6.5 g/dl (6.4-8.2)
[2023-05-18] MEDS ORDERED: IRINOTECAN HCL 190 MG in DEXTROSE 5%-WATER - 500 ML IVPB ONE (11:30)
[2023-05-18] MEDS ORDERED: FLUOROURACIL 3,000 MG in SODIUM CHLORIDE 32 ML CP ONE (13:00)
[2023-05-18] MEDS ORDERED: PORTA CATH FLUSH 10 ML IVPUSH PRN (16:10)
[2023-05-18 16:11] VITALS: BP 101/66; PULSE 64; RESP 18; TEMP 97.9
== END 2023-05-18 16:00 | disposition home or self-care (01) ==
LOC: JONCCHEMO 09:31 → J7W 09:32 → JONCCHEMO 16:00
PROVIDERS: ATTEND Internal Medicine Hematology & Oncology
DX: Z51.11 Encounter for antineoplastic chemotherapy (principal); C16.9 Malignant neoplasm of stomach, unspecified
CPT/HCPCS: 36415; 80048; 80076; 82150; 82533; 83690; 83735; 84439; 84443; 85025; 96366; 96367; 96375; 96413; 96417; G0498; J1453; J2469; J9206; J9299

== ENCOUNTER 2023-05-20 14:00 | Day surgery (SDC) | payer OTHER ==
[2023-05-20 16:52] VITALS: BP 120/6; PULSE 70; RESP 18; TEMP 98.3
[2023-05-20] MEDS ORDERED: PORTA CATH FLUSH 10 ML IVPUSH PRN (16:56)
== END 2023-05-20 14:20 | disposition home or self-care (01) ==
LOC: JONCCHEMO 14:00
PROVIDERS: ATTEND Internal Medicine Hematology & Oncology
DX: Z53.8 Procedure and treatment not carried out for other reasons (principal)

== ENCOUNTER 2023-06-01 10:31 | Day surgery (SDC) | payer OTHER ==
[~2023-06-01 10:31] MED LIST changes: +ATROPINE SO4 0.4 MG/1 ML VIAL IVPUSH ONE; +DEXAMETHASONE SODIUM PHOSPHATE 10 MG in SODIUM CHLORIDE 50 ML IVPB ONE; +DEXTROSE 5% IVPB ONE; +FOSAPREPITANT DIMEGLUMINE 150 MG in SODIUM CHLORIDE 145 ML IVPB ONE; +IRINOTECAN HCL 190 MG in DEXTROSE 5%-WATER - 500 ML IVPB ONE; +LEUCOVORIN IVPB ONE; +NIVOLUMAB 240 MG in SODIUM CHLORIDE 100 ML IVPB ONE; +PALONOSETRON HCL 0.25 MG/5 ML VIAL IVPUSH ONE; +WATER IVPB ONE
[2023-06-01 11:31] LABS: BASO % 0.6 % (0-2.0); EOS % 4.4 % (0-4.5); HEMATOCRIT 32.7 % (35.4-49); HEMOGLOBIN 10.5 GM/dL (11.7-16.9); LYMPH % 30.7 % (8-40); MCH 30.8 pg (25.7-33.7); MCHC 32.1 g/dl (32.0-35.9); MEAN CELL VOLUME 95.8 fl (80-96); MONO % 14.1 % (3.8-10.2); NEUT % 50.2 % (42.8-82.8); PLATELET COUNT 194 10^3/uL (134-434); RBC 3.41 M/mm3 (4.00-5.60); RDW 15.7 % (11.9-15.9); WHITE BLOOD COUNT 4.9 K/mm3 (4.0-10.0)
[2023-06-01 11:53] LABS: POTASSIUM 3.9 mmol/L (3.5-5.1)
[2023-06-01 11:55] LABS: CALCIUM 8.7 mg/dL (8.5-10.1)
[2023-06-01 11:56] LABS: ALBUMIN 3.3 g/dl (3.4-5.0); BLOOD UREA NITROGEN 16.4 mg/dL (7-18); MAGNESIUM 2.2 mg/dL (1.8-2.4)
[2023-06-01 11:58] LABS: BILIRUBIN,DIRECT 0.2 mg/dL (0.0-0.2)
[2023-06-01 11:59] LABS: CREATININE 1.2 mg/dL (0.55-1.3)
[2023-06-01 12:00] LABS: BILIRUBIN,TOTAL 0.6 mg/dL (0.2-1); TOT PROT 6.4 g/dl (6.4-8.2)
[2023-06-01] MEDS ORDERED: FLUOROURACIL 3,000 MG in SODIUM CHLORIDE 32 ML CP ONE (12:30)
[2023-06-01] MEDS ORDERED: PORTA CATH FLUSH 10 ML IVPUSH PRN (17:35)
[2023-06-01 17:36] VITALS: BP 95/67; PULSE 65; RESP 20; TEMP 98.3
[2023-06-08] MEDS ORDERED: PORTA CATH FLUSH 10 ML IVPUSH PRN (09:00)
== END 2023-06-01 17:10 | disposition home or self-care (01) ==
LOC: JONCCHEMO 10:31 → J7W 11:45 → JONCCHEMO 17:10
PROVIDERS: ATTEND Internal Medicine Hematology & Oncology
PROC: 3E0 Administration, Physiological Systems and Anatomical Regions, Introduction (ICD-10-PCS; principal; 2023-06-01)
DX: Z51.11 Encounter for antineoplastic chemotherapy (principal); C16.9 Malignant neoplasm of stomach, unspecified
CPT/HCPCS: 36415; 80048; 80076; 82150; 82533; 83690; 83735; 84439; 84443; 85025; 96366; 96367; 96375; 96413; G0498; J1453; J2469; J9206; J9299

== ENCOUNTER 2023-06-03 15:20 | Day surgery (SDC) | payer OTHER ==
[2023-06-03 16:55] VITALS: BP 103/70; PULSE 76; RESP 18; TEMP 98.3
[2023-06-03] MEDS ORDERED: PORTA CATH FLUSH 10 ML IVPUSH PRN (16:55)
== END 2023-06-03 15:40 | disposition home or self-care (01) ==
LOC: JONCCHEMO 15:20 → J7W 15:20 → JONCCHEMO 15:40
PROVIDERS: ATTEND Internal Medicine Hematology & Oncology
DX: Z53.8 Procedure and treatment not carried out for other reasons (principal)
CPT/HCPCS: 96365